=== PATIENT | male | born 1965 | race Two or more races ===

== ENCOUNTER 2020-09-08 09:03 | Emergency (ER) | payer OTHER, SELFPAY ==
[2020-09-08 09:51] VITALS: BP 113/72; PULSE 81; RESP 16; TEMP 36.7; O2SAT 98; BMI 30.9
--- NOTE | 2020-09-08 10:11 | ED_ITS ---
HPI - General Adult General Chief complaint: Neck Pain/Injury Stated complaint: MUSCLE PAIN Time Seen by Provider: 09/08/20 10:11 History of Present Illness HPI narrative: Patient complains of pain on the left side of the neck from under the left ear to the trapezius muscle that is worse with movement, no known injury, no fever no chills no sore throat no ear pain no toothache Related Data Previous Rx's Medication Instructions Recorded amoxicillin 500 mg PO TID 7 Days #21 cap 09/08/20 cyclobenzaprine 5 mg PO TID PRN #10 tab 09/08/20 ibuprofen 600 mg PO Q6H PRN #20 tab 09/08/20 Allergies Allergy/AdvReac Type Severity Reaction Status Date / Time No Known Allergies Allergy Unverified 07/05/20 16:11 [No Known Allergies*] Review of Systems Review of Systems: There is no fever no chills no numbness no weakness no paresthesias no shortness of breath no chest pain no sore throat no ear pain no toothache no runny nose, no skin rash PMFSH Past Medical History Source: nursing notes reviewed Medical History (Updated 09/08/20 @ 10:15 by SHEILA Solo) Diabetes High cholesterol Social History Social History Advance Directives: No Advance Directives Information Provided: Yes Physical Exam Vital Signs: Vital Signs: Last Vital Signs Temp 98.1 F 09/08/20 09:51 Pulse 81 09/08/20 09:51 Resp 16 09/08/20 09:51 BP 113/72 09/08/20 09:51 Pulse Ox 98 09/08/20 09:51 Body Mass Index 30.9 Patient is A&O x3 comfortable relaxed and cooperative The left ear are clear with normal tympanic membranes, no redness to tympanic membrane, no mastoid tenderness, no redness behind the ear, ear canal is normal The pharynx is clear no redness no tonsillar exudate no drooling no trismus no dental tenderness no dental abscess, voice is normal The neck has tenderness to the left lateral neck as well as some tenderness to the left submandibular area no obvious swelling no redness no warmth no fluctuance The chest is clear to auscultation bilaterally there is no respiratory distress, breath sounds are full symmetrical and equal The heart rate and rhythm regular, no murmur Extremities full range of motion x4 skin no rash neuro no focal deficit Course Course Course Narrative: Patient was concerned as and a prior episode of strep throat he had had some submandibular swelling associated with pharyngitis, today there is no pharyngitis but there was some tenderness in the left submandibular area but no swelling, there is also tenderness along the left lateral neck muscle th at was reproduced with movement so patient possibly has some swelling of left submandibular gland and has muscle tenderness in the left side of the neck consistent with muscle inflammation He is treated with amoxicillin antibiotic as well as treatment for musculoskeletal pain in the left side of the neck Discharge Plan Discharge Clinical Impression: Lymphadenopathy Patient Disposition: Home, Self-Care Additional Instructions: You have a swollen gland on the left side of your neck There was also some tenderness in the muscle but no sign of any skin infection We are starting amoxicillin antibiotic as well as Motrin and a muscle relaxer Return any time for swelling, spreading redness, any difficulty breathing or swallowing, any worse condition or any concerns We will call you in 2-3 days with COVID test results Prescriptions: New amoxicillin 500 mg capsule 500 mg PO TID 7 Days Qty: 21 RF: 0 ibuprofen 600 mg tablet 600 mg PO Q6H PRN (Reason: pain) Qty: 20 RF: 0 cyclobenzaprine 5 mg tablet 5 mg PO TID PRN (Reason: muscle spasm) Qty: 10 RF: 0 Stand Alone Forms: Work/School Release Interventions: ED Discharge Assessment Last Done: 09/08/20 11:02 Discharge Date/Time: 09/08/20 10:45
== END 2020-09-08 10:45 | disposition home or self-care (01) ==
PROVIDERS: Physician Assistant Medical; Emergency Provider Emergency Medicine; PCP Internal Medicine
DX: M79.10 Myalgia, unspecified site (principal); M54.2 Cervicalgia; R59.1 Generalized enlarged lymph nodes; Z20.828 Contact with and (suspected) exposure to other viral communicable diseases; Z79.899 Other long term (current) drug therapy
CPT/HCPCS: 99283; U0003

== ENCOUNTER 2020-10-22 11:09 | Outpatient (REF) | payer OTHER, SELFPAY | END 2020-10-22 11:10 | disposition home or self-care (01) | LOC: HO.LAB 11:09 | PROVIDERS: Visit Provider Internal Medicine | DX: Z20.828 Contact with and (suspected) exposure to other viral communicable diseases (principal) | CPT/HCPCS: 36415; C9803; U0003 ==

== ENCOUNTER 2021-03-31 10:55 | Emergency (ER) | payer OTHER, SELFPAY ==
[2021-03-31 11:23] VITALS: BP 142/87; PULSE 82; RESP 16; TEMP 36.6; O2SAT 97; BMI 29.2
--- NOTE | 2021-03-31 12:26 | ED.MALEGU ---
HPI - Male Genitourinary General Chief complaint: Urogenital-Male Stated complaint: rash on private area Time Seen by Provider: 03/31/21 12:26 History of Present Illness HPI Narrative: Patient complains of itching rash on tip of penis for several days no fever no chills no burning with urination no discharge no testicular swelling Related Data Previous Rx's Medication Instructions Recorded amoxicillin 500 mg PO TID 7 Days #21 cap 09/08/20 cyclobenzaprine 5 mg PO TID PRN #10 tab 09/08/20 ibuprofen 600 mg PO Q6H PRN #20 tab 09/08/20 clotrimazole 1 appl TOPICAL BID #15 g 03/31/21 Allergies Allergy/AdvReac Type Severity Reaction Status Date / Time No Known Allergies Allergy Unverified 07/05/20 16:11 [No Known Allergies*] Review of Systems Review of Systems: Positive for penile rash Negatives are no fever no chills no headache no sore throat no abdominal pain no dysuria no blood in the urine no discharge no testicular pain or swelling no dysuria no frequency no burning with urination Yes all other systems are reviewed and are negative [facility] Past Medical History Source: nursing notes reviewed Medical History (Updated 04/01/21 @ 00:01 by Saba Gary) Diabetes High cholesterol Social History Social History Advance Directives: Yes Advance Directives Information Provided: Yes Advance Directives on File: No Physical Exam Vital Signs: Vital Signs: Last Vital Signs Temp 98 F 03/31/21 11:23 Pulse 82 03/31/21 11:23 Resp 16 03/31/21 11:23 BP 142/87 H 03/31/21 11:23 Pulse Ox 97 03/31/21 11:23 Body Mass Index 29.2 General appearanc no distress The head is normocephalic atraumatic Neck is supple Abdomen is soft nontender Respiratory no distress Genital exam under the foreskin there is some redness and a raised reddish rash on the tip of the penis, no ulcerations no discharge no testicular swelling Skin no other rash Course Course Course Narrative: Patient is diabetic who says his sugars are well controlled He denies any unprotected sexual intercourse The small papules could be from balanitis but also from herpes so herpes was swabbed, I did not initiate treatment as he is 5 days out from when the rash appeared, and is insistent he did not have unprotected intercourse MDM - Male Genitourinary Lab Data Labs: Lab Results 03/31/21 03/31/21 03/31/21 Range/Units 13:16 13:16 13:16 Urine Color YELLOW Urine Appearance CLEAR Urine pH 5.5 (5.0-8.0) Ur Specific [place] 1.020 (1.005-1.025) Urine Protein NEG (NEG-TRACE) MG/DL Urine Glucose (UA) >=1000 H (NEG) MG/DL Urine Ketones NEG (NEG) MG/DL Urine Blood NEG (NEG) Urine Nitrite NEG (NEG) Ur Leukocyte Esterase NEG (NEG) Urine RBC 0-2 (0) /HPF Urine WBC 0 (0-4) /HPF Ur Squamous Epith Cells NONE /LPF Urine Bacteria NONE /LPF Chlam trachomat DNA PCR NOT DETECTED (Not Detect.) Herpes Simplex Culture SEE NOTE N.gonorrhoeae DNA (PCR) NOT DETECTED (Not Detect.) Discharge Plan Discharge Clinical Impression: Balanitis Patient Disposition: Home, Self-Care Additional Instructions: The rash may be balanitis which some diabetics can get, but I am not sure so we tested for herpes as well We will call you if there is any positive results Follow with primary doctor you may need referral to urologist Prescriptions: New clotrimazole 1 % cream 1 appl topical BID Qty: 15 RF: 0 No Action amoxicillin 500 mg capsule 500 mg PO TID 7 Days Qty: 21 RF: 0 ibuprofen 600 mg tablet 600 mg PO Q6H PRN (Reason: pain) Qty: 20 RF: 0 cyclobenzaprine 5 mg tablet 5 mg PO TID PRN (Reason: muscle spasm) Qty: 10 RF: 0 Stand Alone Forms: Work/School Release Interventions: ED Discharge Assessment Last Done: 03/31/21 14:33 Discharge Date/Time: 03/31/21 14:35
[2021-03-31 13:31] LABS: Glucose Urine UA >=1000 MG/DL (NEG); Leukocyte Esterase Urine NEG (NEG); Nitrite Urine NEG (NEG); PH 5.5 (5.0-8.0); Urine Blood NEG (NEG); Urine Ketones NEG (NEG); Urine Protein NEG (NEG-TRACE)
[2021-03-31 13:32] LABS: Appearance Urine CLEAR; Color Urine YELLOW
[2021-03-31 13:47] LABS: RBC Urine 0-2 /HPF (0); WBC Urine 0 /HPF (0-4)
[2021-03-31 15:20] LABS: CT PCR NOT DETECTED (Not Detect.); NG PCR NOT DETECTED (Not Detect.)
== END 2021-03-31 14:35 | disposition home or self-care (01) ==
PROVIDERS: Physician Assistant Medical; Emergency Provider Emergency Medicine Emergency Medical Services; PCP Family Medicine Geriatric Medicine
DX: N48.1 Balanitis (principal); E11.9 Type 2 diabetes mellitus without complications
CPT/HCPCS: 81001; 87255; 87491; 87591; 99283; 99284

== ENCOUNTER → 2022-10-17 09:42 | Outpatient (BNVA) | payer OTHER, SELFPAY | PROVIDERS: PCP Family Medicine Geriatric Medicine; Visit Provider Urology | DX: N48.1 Balanitis (principal) ==

== ENCOUNTER → 2022-12-23 11:28 | Outpatient (BNVA) | payer OTHER, SELFPAY | PROVIDERS: PCP Family Medicine Geriatric Medicine; Visit Provider Nurse Practitioner Family | DX: Z13.89 Encounter for screening for other disorder (principal) ==

== ENCOUNTER 2023-10-22 15:01 | Emergency (ER) | payer OTHER, SELFPAY ==
[2023-10-22 15:08] VITALS: BP 158/100; PULSE 88; O2SAT 96
[2023-10-22 15:39] VITALS: BP 177/94; PULSE 89; RESP 20; TEMP 36.8; O2SAT 98; BMI 28.3
--- NOTE | 2023-10-22 15:49 | ED.GENADULT ---
HPI - General Adult General Chief complaint: Abdominal Pain Stated complaint: ABD PAIN PER EMS Time Seen by Provider: 10/22/23 23:13 Source: patient Mode of arrival: ambulatory Limitations: no limitations History of Present Illness HPI narrative: Patient comes to the emergency room complaining of epigastric and right upper quadrant pain for most 24 hours. Patient states that he has had history of pancreatitis in the past, and the pain is very similar. Patient admits that he drinks 1 pt of alcohol daily. Patient complaining of nausea and vomiting, no diarrhea. Patient denies UTI symptoms or flank pain. Related Data Home Medications Medication Instructions Recorded Confirmed acamprosate 333 mg tablet,delayed 666 mg PO TID 10/17/22 12/23/22 release atorvastatin 40 mg tablet 40 mg PO DAILY 10/17/22 12/23/22 cholecalciferol (vitamin D3) 25 25 mcg PO QAM 10/17/22 12/23/22 mcg (1,000 unit) tablet cyanocobalamin (vitamin B-12) 1,000 mcg PO QAM 10/17/22 12/23/22 1,000 mcg tablet dorzolamide 22.3 mg-timolol 6.8 ml ophthalmic (eye) 10/17/22 12/23/22 mg/mL eye drops metformin 1,000 mg tablet 1,000 mg PO BID 10/17/22 12/23/22 omeprazole 20 mg capsule,delayed 20 mg PO BID 10/17/22 12/23/22 release sildenafil 100 mg tablet (Viagra) 100 mg PO DAILY PRN 10/17/22 12/23/22 dapagliflozin propanediol 5 mg 5 mg PO QAM 12/23/22 12/23/22 tablet (Farxiga) multivitamin 1 tab PO QAM 12/23/22 12/23/22 Previous Rx's Medication Instructions Recorded cyclobenzaprine 5 mg tablet 5 mg PO TID PRN muscle spasm #10 09/08/20 tabs ibuprofen 600 mg tablet 600 mg PO Q6H PRN pain #20 tabs 09/08/20 clotrimazole 1 % topical cream 1 appl topical BID Rash #15 grams 03/31/21 clotrimazole-betamethasone 1 1 appl topical BID 4 weeks #45 12/23/22 %-0.05 % topical cream grams oxycodone 5 mg tablet 5 mg PO BID PRN pain #6 tabs 10/23/23 Allergies Allergy/AdvReac Type Severity Reaction Status Date / Time No Known Allergies Allergy Verified 10/22/23 15:42 [No Known Allergies*] Review of Systems Review of Systems: Constitutional : No Weight loss, No Fever, No Chills, No Night Sweats, No Fatigue, No Malaise ENT/Mouth : No Hearing loss, No Ear Pain, No Nasal Congestion, No Sinus Pain, No Hoarseness, No sore throat, No Rhinorrhea, No Swallowing Difficulty Eyes: No Eye Pain, No Swelling, No Redness, No Foreign Body, No Discharge, No Vision Changes Cardiovascular : No Chest Pain, No SOB, No Dyspnea on Exertion, No Orthopnea, No Edema, No Palpitations Respiratory : No Cough, No Sputum, No Wheezing, No Smoke Exposure, No Dyspnea Gastrointestinal : Complaining of nausea vomiting, No Diarrhea, No Constipation, complaining of abdominal pain in epigastric and right upper quadrant area No Hematochezia, No Melena Genitourinary : no irregular bleeding, No Dysuria, No Urinary Frequency, No Hematuria, No Urinary Incontinence, No Urgency, No Flank Pain, No Urinary Flow Changes, No Hesitancy Musculoskeletal : No joint pain, No Myalgias, No Joint Swelling Skin : No Skin Lesions, No rash Neuro : No Weakness, No Numbness, No Paresthesias, No Loss of Consciousness, No Dizziness, No Headache Psych : No Anxiety/Panic, No Depression, No SI/HI/AH/VH, No Social Issues, Heme/Lymph: No Bruising, No Bleeding,No Lymphadenopathy Endocrine : No Polyuria, No Polydipsia, No Temperature Intolerance PMFSH Past Medical History Onset Date is defined in the Problem List Problems that require an onset date and time if occurred within 24 hrs of arrival to the ED Aortic Dissection and Rupture; Neurologic impairment; Cardiopulmonary Arrest; Endotracheal Intubation; Insertion or Replacement of Mechanical Circulatory Assist Device Medical History (Updated 10/23/23 @ 02:17 by Maritza Oconnor MD) Type 2 diabetes mellitus Hypertension Pancreatitis High cholesterol Diabetes Social History Social History Smoked in Last 30 Days: Yes Advance Directives: No Advance Directives Information Provided: No Physical Exam ED Vital Signs: Vital Signs - 24 hr 10/22/23 15:39 10/22/23 21:59 10/22/23 23:29 Temperature 98.2 F 97.8 F 98.0 F Pulse Rate 89 83 83 Respiratory Rate 20 18 Blood Pressure 177/94 H 189/95 H 174/85 H Pulse Oximetry 98 96 98 Oxygen Delivery Method Room Air Room Air Room Air 10/23/23 02:16 Temperature 98.2 F Pulse Rate 80 Respiratory Rate 17 Blood Pressure 157/70 H Pulse Oximetry 96 Oxygen Delivery Method Room Air BMI result Body Mass Index 28.3 Const Other: Appearance: Alert. Oriented X3. Seems uncomfortable Eyes: Pupils equal, round and reactive to light. ENT: Pharynx normal. Neck: Normal inspection. Neck supple. No lymph nodes noted. No crepitus CVS: Normal heart rate and rhythm. Pulses normal. Normal S1 and S2 Respiratory: No respiratory distress. Breath sounds normal. No Wheezing. No rales Abdomen: Soft and nontender. Mild tenderness to palpation in epigastric and right upper quadrant area, negative Easton sign, no rebound or guarding, small reducible periumbilical hernia Skin: Skin warm and dry. Normal skin color. Normal skin turgor. Extremities: No lower extremity edema. No Lacerations. No Rash Neuro: Oriented X 3. No motor deficit. No sensory deficit. Moving all extremities. No slurred speech. CN 2 through 12 grossly intact Psych: calm, cooperative, normal affect Course Course Course Narrative: RME: 57-year-old male presents ED for epigastric upper abdominal pain with history of pancreatitis and alcoholism. Patient states having similar presentation of pancreatitis. Patient states no lower abdominal pain fever chills or flank pain. Patient states no symptoms. Labs ultrasound CT scan ordered. Medications Administered Discontinued Medications Generic Name Dose Route Start Last Admin Trade Name Freq PRN Reason Stop Dose Admin Sodium Chloride 1,000 mls @ 999 mls/hr 10/22/23 23:22 10/23/23 00:30 Ns IVCONT 10/23/23 00:22 Infused .Q1H1M ONE Infusion Morphine Sulfate 4 mg 10/22/23 23:22 10/22/23 23:32 Morphine Sulfate 4 Mg/Ml Cartridge IVPUSH 10/22/23 23:23 4 mg ONCE ONE Administration Protocol Morphine Sulfate 4 mg 10/23/23 02:14 10/23/23 02:19 Morphine Sulfate 4 Mg/Ml Cartridge IVPUSH 10/23/23 02:15 4 mg ONCE ONE Administration Protocol Ondansetron HCl 4 mg 10/22/23 23:22 10/22/23 23:32 Ondansetron Hcl 4 Mg/2 Ml Vial IVPUSH 10/22/23 23:23 4 mg ONCE ONE Administration Medical Decision Making Medical Decision Making [facility] Narrative: -my interpretation of labs: Hematology and chemistry unremarkable, troponin negative, lipase normal. -ultrasound shows dilated gallbladder and positive Easton sign -on physical exam, the patient did not have Easton sign. -CT scan of the abdomen my interpretation: Normal gallbladder, no SBO, no obvious abnormalities -I discussed the imaging labs and patient with Dr. Purcell from surgery, patient unlikely to have acute cholecystitis. -patient does have pain likely musculoskeletal. Patient states that he fell and landed on the right side of his body less than a week ago. -patient has had multiple times pancreatitis, lipase negative Differential Diagnosis Differential Diagnoses: The differential diagnosis associated with the presentation includes (Cholecystitis, pancreatitis, musculoskeletal pain) Admission/Observation Consideration of admission/observation: Escalation of care including admission/observation considered (Given patient's presentation, admission was considered on arrival) Lab Data MDM Lab Attestation statement: I reviewed the patient's lab results. 10/22/23 17:35 10/22/23 17:35 Labs: Lab Results 10/22/23 10/22/23 Range/Units 17:35 23:36 WBC 9.6 (4.8-10.8) X10*3/uL RBC 4.57 L (4.60-5.80) X10*6/uL Hgb 14.8 (14.0-18.0) g/dl Hct 43.0 (42.0-52.0) % MCV 94.1 (80.0-98.0) fL MCH 32.4 (27.0-33.0) pg MCHC 34.4 (31.0-36.0) g/dl RDW 12.8 (11.0-16.0) % Plt Count 204 (160-400) X10*3/uL MPV 9.6 (9.4-12.4) fL Immature Gran % (Auto) 0.5 H (0.0-0.4) % Neut % (Auto) 69.4 (45-73) % Lymph % (Auto) 20.9 (20-40) % [place] % (Auto) 8.1 (2-11) % Eos % (Auto) 0.9 (0-4) % Baso % (Auto) 0.2 (0-2) % Lymph # (Auto) 2.0 (1.2-4.9) X10*3/uL [place] # (Auto) 0.8 (0.1-1.2) X10*3/uL Eos # (Auto) 0.1 (0.0-0.4) X10*3/uL Baso # (Auto) 0.0 (0.0-0.2) X10*3/uL Abs Immat Gran (auto) 0.05 H (0.00-0.03) X10*3/uL Absolute Neuts (auto) 6.6 (2.0-8.3) x10*3/uL Absolute Nucleated RBC 0.000 (0.0-0.012) X10*3/uL Nucleated RBC % (auto) 0.0 (0.0-0.2) /100WBC PT 11.0 L (11.1-13.3) SEC INR 0.9 (0.9-1.1) APTT 30.6 (26.0-36.4) SEC Sodium 140 (135-145) mmol/L Potassium 3.2 L (3.3-5.1) mmol/L Chloride 100 (96-108) mmol/L Carbon Dioxide 23 (22-29) mmol/L Anion Gap 20 (12-20) BUN 8 L (9-16) mg/dL Creatinine 0.68 (0.5-1.4) mg/dL Estim Creat Clear Calc 113.6 Estimated GFR > 60 Random Glucose 147 H (60-115) mg/dL Calcium 9.7 (8.4-10.2) mg/dL Total Bilirubin 0.6 (0.0-1.0) mg/dL AST 16 (5-37) U/L ALT 12 (0-40) U/L Alkaline Phosphatase 68 (39-117) U/L Troponin I High Sens 6.7 (<3.5-35.0) ng/L Total Protein 8.0 (6.5-8.0) g/dL Albumin 4.5 (3.5-5.0) g/dL Lipase 27 (8-78) U/L Urine Color Yellow Urine Appearance Clear Urine pH 6.0 (5.0-9.0) Ur Specific [place] 1.020 (1.005-1.025) Urine Protein 100 (2+) H (Neg-Trace) mg/dL Urine Glucose (UA) 100 H (Negative) mg/dL Urine Ketones 80 (Negative) mg/dL Urine Blood Small (1+) H (Negative) Urine Nitrite Negative (Negative) Ur Leukocyte Esterase Negative (Negative) Urine RBC 6-10 H (0-2) /HPF Urine WBC 0-5 (0-5) /HPF Ur Squamous Epith Cells 0-2 (0-2) /HPF Urine Bacteria None Seen (None Seen) Hyaline Casts 0-2 (0-2) /LPF Ethyl Alcohol 61 mg/dL Independent Interpretation I performed an independent interpretation of an: Ultrasound and CT Scan Radiology Impression Discussion of test interpretation with radiology: I have reviewed the radiologist's reading. Radiologist Impression: FINDINGS: LUNG BASES: The visualized lung bases are unremarkable. LIVER, GALLBLADDER, AND BILIARY TREE: The liver is normal in size, shape, and attenuation. No focal hepatic lesion or biliary ductal dilatation is present. The gallbladder is unremarkable with no evidence of radiopaque gallstones, gallbladder wall thickening, or obvious pericholecystic inflammatory changes. PANCREAS: There is mild infiltrative change along the head of the pancreas. SPLEEN: Unremarkable. ADRENAL GLANDS: Unremarkable. KIDNEYS AND URETERS: The kidneys are normal in size, shape, and attenuation. No hydronephrosis, hydroureter, or calculi seen. Mild nonspecific perinephric stranding. BLADDER: Unremarkable. GASTROINTESTINAL TRACT: The small and large bowel are unremarkable. The appendix is unremarkable. ABDOMINAL WALL: No significant hernia is appreciated. LYMPH NODES: Normal. VASCULAR: Unremarkable. PELVIC VISCERA: Unremarkable. OSSEOUS STRUCTURES: There is mild diffuse thoracolumbar disc degenerative change. CT/CT abdomen pelvis wo IV con IMPRESSION: 1. There is mild infiltrative change along the head of the pancreas. Correlate with laboratory values for possible pancreatitis. 2. Otherwise, no acute abnormality within the abdomen or pelvis. IMPRESSION: Distended gallbladder. Positive sonographic Easton's sign. Findings are equivocal for acute cholecystitis. Advise clinical correlation. Hepatic steatosis. Tubular structure in the right mid to lower abdomen of uncertain significance. Correlation with further cross-sectional imaging is recommended. Critical Care Time Critical Care Time Total Critical Care Time: 60 Attestation: I have personally provided critical care time. Time includes review of lab data, radiology results, discussion with consultants, and monitoring for potential decompensation. Intervention performed as documented. Discharge Plan Discharge Clinical Impression: Abdominal pain Patient Disposition: Home, Self-Care Instructions: Abdominal Pain (ED) Additional Instructions: Please follow-up with your primary care physician tomorrow. If you have any worsening or new symptoms, please return to the emergency room or call 911 Prescriptions: New oxycodone 5 mg tablet 5 mg PO BID PRN (Reason: pain) Qty: 6 0RF Rx Instructions: Partial Fill upon patient request. No Action ibuprofen 600 mg tablet 600 mg PO Q6H PRN (Reason: pain) Qty: 20 0RF cyclobenzaprine 5 mg tablet 5 mg PO TID PRN (Reason: muscle spasm) Qty: 10 0RF clotrimazole 1 % cream 1 appl topical BID Qty: 15 0RF multivitamin Tablet 1 tab PO QAM Farxiga 5 mg tablet 5 mg PO QAM clotrimazole-betamethasone 1-0.05 % cream 1 appl topical BID 28 Days Qty: 45 0RF Rx Instructions: Apply thin coat 2 times per day acamprosate 333 mg tablet,delayed release (DR/EC) 666 mg PO TID dorzolamide-timolol 22.3-6.8 mg/mL drops ophthalmic (eye) metformin 1,000 mg tablet 1,000 mg PO BID sildenafil [Viagra] 100 mg tablet 100 mg PO DAILY PRN cholecalciferol (vitamin D3) 25 mcg (1,000 unit) tablet 25 mcg PO QAM cyanocobalamin (vitamin B-12) 1,000 mcg tablet 1,000 mcg PO QAM atorvastatin 40 mg tablet 40 mg PO DAILY omeprazole 20 mg capsule,delayed release(DR/EC) 20 mg PO BID Stand Alone Forms: Work/School Release Interventions: ED Discharge Assessment Last Done: 10/23/23 02:24 Discharge Date/Time: 10/23/23 02:59
--- NOTE | 2023-10-22 21:54 | PC.NURSE ---
This RN reviewing patient chart prior to reasssment. Results of ultrasound reviewed and transmitter engineer in charge made aware
[2023-10-22 21:59] VITALS: BP 189/95; PULSE 83; RESP 18; TEMP 36.6; O2SAT 96
[2023-10-22 23:29] VITALS: BP 174/85; PULSE 83; TEMP 36.7; O2SAT 98
--- NOTE | 2023-10-22 23:30 | MHC.EDTECH ---
This tech took over care of patient at 2300,hourly rounds and vitals completed, patient will attempt to get a urine sample at this time. Family at bedside and call jaquez within reach.
--- NOTE | 2023-10-22 23:33 | MHC.EDTECH ---
Patient ambulated to bathroom with a steady gait.urine sample collected and sent to lab.
[2023-10-23 02:16] VITALS: BP 157/70; PULSE 80; RESP 17; TEMP 36.8; O2SAT 96
== END 2023-10-23 02:59 | disposition home or self-care (01) ==
PROVIDERS: Emergency Provider Emergency Medicine
DX: R10.13 Epigastric pain (principal); R10.11 Right upper quadrant pain; E78.00 Pure hypercholesterolemia, unspecified; E11.9 Type 2 diabetes mellitus without complications; I10 Essential (primary) hypertension; F10.20 Alcohol dependence, uncomplicated; Y90.3 Blood alcohol level of 60-79 mg/100 ml; Z79.84 Long term (current) use of oral hypoglycemic drugs; Z79.899 Other long term (current) drug therapy; Z79.02 Long term (current) use of antithrombotics/antiplatelets
CPT/HCPCS: 36415; 74176; 76705; 80053; 80307; 81001; 83690; 84484; 85025; 85610; 85730; 93005; 96361; 96374; 96375; 96376; 99285; J2270; J2405

== ENCOUNTER → 2023-10-22 15:43 | Outpatient (BNV) | payer OTHER, SELFPAY | PROVIDERS: Emergency Provider Emergency Medicine; Visit Provider Internal Medicine Cardiovascular Disease | DX: R94.31 Abnormal electrocardiogram [ECG] [EKG] (principal) | CPT/HCPCS: 93010 ==

== ENCOUNTER 2023-10-24 17:40 | Emergency (ER) | payer OTHER, SELFPAY ==
[2023-10-24 18:49] VITALS: BP 179/88; PULSE 77; RESP 18; TEMP 36.6; O2SAT 98; BMI 28.6
[2023-10-24 19:34] LABS: Alanine Aminotransferase 8 U/L (0-40); Albumin Level 4.2 g/dL (3.5-5.0); Alkaline Phosphatase 70 U/L (39-117); Anion Gap 14 (12-20); Aspartate Amino Transferase 12 U/L (5-37); Bilirubin Total 0.6 mg/dL (0.0-1.0); Blood Urea Nitrogen 18 mg/dL (9-16); Calcium 9.6 mg/dL (8.4-10.2); Carbon Dioxide 30 mmol/L (22-29); Chloride 102 mmol/L (96-108); Creatinine Clr Calc Pharmacy 87.2; Estimated Glomerular Filt Rate > 60; Glucose Random 175 mg/dL (60-115); Lipase 42 U/L (8-78); Potassium 3.7 mmol/L (3.3-5.1); Sodium 142 mmol/L (135-145); Total Protein 7.4 g/dL (6.5-8.0)
--- NOTE | 2023-10-24 22:21 | ED.ABDPAIN ---
HPI - Abdominal Pain General Chief Complaint: Abdominal Pain Stated Complaint: abd pain, was here Time Seen by Provider: 10/24/23 22:11 Source: patient and family Mode of arrival: ambulatory Limitations: no limitations History of Present Illness HPI narrative: A 57-year-old male return to the emergency department for evaluation of abdominal pain. Epigastric/ mid abdominal pain after drinking alcohol for 5 days now patient was evaluated in the emergency department on 10/22/[address] of the abdomen and pelvis without IV contrast showed infiltrate around the head of pancreas however patient had a normal lipase and otherwise normal electrolyte patient returned again for for persistence of the pain despite taking oxycodone. No nausea, no vomiting. Patient only drink occasionally last drink was 5 days ago and he is prone to pancreatitis with alcohol. however patient drinks occasionally. Related Data Home Medications Medication Instructions Recorded Confirmed acamprosate 333 mg tablet,delayed 666 mg PO TID 10/17/22 12/23/22 release atorvastatin 40 mg tablet 40 mg PO DAILY 10/17/22 12/23/22 cholecalciferol (vitamin D3) 25 25 mcg PO QAM 10/17/22 12/23/22 mcg (1,000 unit) tablet cyanocobalamin (vitamin B-12) 1,000 mcg PO QAM 10/17/22 12/23/22 1,000 mcg tablet dorzolamide 22.3 mg-timolol 6.8 ml ophthalmic (eye) 10/17/22 12/23/22 mg/mL eye drops metformin 1,000 mg tablet 1,000 mg PO BID 10/17/22 12/23/22 omeprazole 20 mg capsule,delayed 20 mg PO BID 10/17/22 12/23/22 release sildenafil 100 mg tablet (Viagra) 100 mg PO DAILY PRN 10/17/22 12/23/22 dapagliflozin propanediol 5 mg 5 mg PO QAM 12/23/22 12/23/22 tablet (Farxiga) multivitamin 1 tab PO QAM 12/23/22 12/23/22 Previous Rx's Medication Instructions Recorded cyclobenzaprine 5 mg tablet 5 mg PO TID PRN muscle spasm #10 09/08/20 tabs ibuprofen 600 mg tablet 600 mg PO Q6H PRN pain #20 tabs 09/08/20 clotrimazole 1 % topical cream 1 appl topical BID Rash #15 grams 03/31/21 clotrimazole-betamethasone 1 1 appl topical BID 4 weeks #45 12/23/22 %-0.05 % topical cream grams oxycodone 5 mg tablet 5 mg PO BID PRN pain #6 tabs 10/23/23 omeprazole 40 mg capsule,delayed 40 mg PO DAILY #14 caps 10/25/23 release Allergies Allergy/AdvReac Type Severity Reaction Status Date / Time No Known Allergies Allergy Verified 10/24/23 18:49 [No Known Allergies*] Review of Systems Review of Systems All other systems are reviewed and are negative Constitutional: Reports as per HPI and Reports no additional constitutional complaints Eyes: Reports as per HPI and Reports no additional eye complaints Reports system reviewed and no additional complaints, except as documented Cardiovascular: Reports as per HPI and Reports no additional cardiovascular complaints Respiratory: Reports as per HPI and Reports no additional respiratory complaints Gastrointestinal: Reports as per HPI and Reports no additional gastrointestinal complaints Genitourinary: Reports no additional female genitourinary complaints Musculoskeletal: Reports no additional musculoskeletal complaints Skin/Breast: Reports system reviewed and no additional complaints, except as docu Psychiatric: Reports no additional psychiatric complaints Endocrine: Reports no additional endocrine complaints Hematologic/Lymphatic: Reports no additional hematologic/lymphatic complaints Allergic/Immunologic: Reports no additional allergic/immunologic complaints Reports system reviewed and no additional complaints, except as documented and Reports Abnormal speech present PMFSH Past Medical History Onset Date is defined in the Problem List Problems that require an onset date and time if occurred within 24 hrs of arrival to the ED Aortic Dissection and Rupture; Neurologic impairment; Cardiopulmonary Arrest; Endotracheal Intubation; Insertion or Replacement of Mechanical Circulatory Assist Device Medical History Type 2 diabetes mellitus Hypertension Pancreatitis High cholesterol Diabetes Social History Social History Smoked in Last 30 Days: Yes Use of substances other than those prescribed or required for medical reasons: No Advance Directives: No Advance Directives Information Provided: No Physical Exam ED Vital Signs: Vital Signs - 24 hr 10/24/23 18:49 10/24/23 22:52 Temperature 97.9 F 98.5 F Pulse Rate 77 76 Respiratory Rate 18 16 Blood Pressure 179/88 H 172/91 H Pulse Oximetry 98 98 Oxygen Delivery Method Room Air Room Air BMI result Body Mass Index 28.6 Vital signs have been reviewed and appear to be correct. Blood pressure elevated. Heart rate normal. Respiratory rate normal. Temperature normal. Oxygen saturation normal. Appearance: Alert. Oriented X3. No acute distress. Head: Normal external exam. Normocephalic. Atraumatic. No Chowdhury signs noted. No raccoon eyes noted Eyes: PERRLA. EOMI. Conjunctiva and sclera normal. Eyelids normal. ENT: TM's Normal. Pharynx normal. Uvula midline. Moist mucous membranes. No trismus noted. No drooling noted. No muffled voice noted. Neck: Normal inspection. Neck supple. FROM. No adenopathy. Thyroid Normal. No meningeal signs. No neck mass noted. CVS: Normal heart rate and rhythm. Heart sound normal. No murmurs noted. Pulses normal throughout. Respiratory: No respiratory distress. Painless inspiration. Breath sounds normal. No wheezes/rales/rhonchi noted. Chest nontender. No accessory muscle usage noted or decreased air movement noted. Abdomen: Soft and nontender. Bowel sounds normal in all 4 quadrants. No distention noted. No organomegaly noted. No visible injury noted. Back: No CVA tenderness. Full range of motion noted. Skin: Skin warm and dry. Normal skin color. Normal skin turgor. No rashes/lesions/lacerations noted. Extremities: No lower extremity edema. Extremities exhibit normal range of motion. Extremities nontender. Neuro: Oriented X 3. Cranial nerve exam: II-XII are grossly intact No motor deficit. No sensory deficit. Reflexes normal. Course Reevaluation(s) Reevaluation #1: Labs/CT abdomen and pelvis with IV contrast showed improvement of the pancreatic infiltrate with normal lipase, making gastritis is more favorable diagnosis then pancreatitis. Patient was instructed to refrain from drinking alcohol, take Tylenol for pain and will prescribe Prilosec with follow-up with GI. Time: 01:52 Medical Decision Making Differential Diagnosis Differential Diagnoses: The differential diagnosis associated with the presentation includes ( Acute appendicitis, acute colitis, acute diverticulitis, acute pancreatitis, acute gastritis, UTI, electrolyte abnormality, dehydration, severe anemia.) Admission/Observation Consideration of admission/observation: Escalation of care including admission/observation considered Lab Data MDM Lab Attestation statement: I reviewed the patient's lab results. 10/24/23 19:13 10/24/23 19:13 Labs: Lab Results 10/24/23 10/24/23 Range/Units 19:13 22:59 WBC 8.4 (4.8-10.8) X10*3/uL RBC 4.28 L (4.60-5.80) X10*6/uL Hgb 13.9 L (14.0-18.0) g/dl Hct 41.8 L (42.0-52.0) % MCV 97.7 (80.0-98.0) fL MCH 32.5 (27.0-33.0) pg MCHC 33.3 (31.0-36.0) g/dl RDW 13.0 (11.0-16.0) % Plt Count 174 (160-400) X10*3/uL MPV 9.8 (9.4-12.4) fL Immature Gran % (Auto) 0.4 (0.0-0.4) % Neut % (Auto) 59.2 (45-73) % Lymph % (Auto) 28.1 (20-40) % [place] % (Auto) 10.1 (2-11) % Eos % (Auto) 2.0 (0-4) % Baso % (Auto) 0.2 (0-2) % Lymph # (Auto) 2.4 (1.2-4.9) X10*3/uL [place] # (Auto) 0.9 (0.1-1.2) X10*3/uL Eos # (Auto) 0.2 (0.0-0.4) X10*3/uL Baso # (Auto) 0.0 (0.0-0.2) X10*3/uL Abs Immat Gran (auto) 0.03 (0.00-0.03) X10*3/uL Absolute Neuts (auto) 5.0 (2.0-8.3) x10*3/uL Absolute Nucleated RBC 0.000 (0.0-0.012) X10*3/uL Nucleated RBC % (auto) 0.0 (0.0-0.2) /100WBC Sodium 142 (135-145) mmol/L Potassium 3.7 (3.3-5.1) mmol/L Chloride 102 (96-108) mmol/L Carbon Dioxide 30 H (22-29) mmol/L Anion Gap 14 (12-20) BUN 18 H (9-16) mg/dL Creatinine 0.89 (0.5-1.4) mg/dL Estim Creat Clear Calc 87.2 Estimated GFR > 60 Random Glucose 175 H (60-115) mg/dL Calcium 9.6 (8.4-10.2) mg/dL Total Bilirubin 0.6 (0.0-1.0) mg/dL AST 12 (5-37) U/L ALT 8 (0-40) U/L Alkaline Phosphatase 70 (39-117) U/L Total Protein 7.4 (6.5-8.0) g/dL Albumin 4.2 (3.5-5.0) g/dL Lipase 42 (8-78) U/L Urine Color Yellow Urine Appearance Clear Urine pH 7.5 (5.0-9.0) Ur Specific [place] 1.025 (1.005-1.025) Urine Protein 30 (1+) H (Neg-Trace) mg/dL Urine Glucose (UA) 100 H (Negative) mg/dL Urine Ketones 15 (Negative) mg/dL Urine Blood Negative (Negative) Urine Nitrite Negative (Negative) Ur Leukocyte Esterase Negative (Negative) Urine RBC 3-5 H (0-2) /HPF Urine WBC 0-5 (0-5) /HPF Ur Squamous Epith Cells 0-2 (0-2) /HPF Urine Bacteria None Seen (None Seen) Hyaline Casts 0-2 (0-2) /LPF Independent Interpretation I performed an independent interpretation of an: CT Scan ( No acute intra-abdominal pathology.) Radiology Impression Discussion of test interpretation with radiology: I have reviewed the radiologist's reading. Medications Administered Discontinued Medications Generic Name Dose Route Start Last Admin Trade Name Freq PRN Reason Stop Dose Admin Al Hydroxide/Mg Hydroxide 30 ml 10/24/23 22:20 10/24/23 22:55 Magnesium Hydrox/Alum Hydrox 30 Ml Oral.Susp PO 10/24/23 22:21 30 ml ONCE ONE Administration Famotidine 20 mg 10/24/23 22:20 10/24/23 22:55 Famotidine/Pf 20 Mg/2 Ml Vial IVPUSH 10/24/23 22:21 20 mg ONCE ONE Administration Sodium Chloride 1,000 mls @ 999 mls/hr 10/24/23 22:20 10/25/23 00:43 Ns IV 10/24/23 23:20 Infused .Q1H1M ONE Infusion Iohexol 85 ml 10/25/23 00:42 10/25/23 00:43 Iohexol 350 Mg/Ml 100 Ml Infus..Btl IV 10/25/23 00:43 85 ml ONCE ONE Administration Discharge Plan Discharge Clinical Impression: Abdominal pain Qualifiers: Abdominal location: epigastric Qualified Code(s): R10.13 - Epigastric pain Gastritis Qualifiers: Gastritis type: alcoholic Chronicity: acute Gastritis bleeding: without bleeding Qualified Code(s): K29.20 - Alcoholic gastritis without bleeding Patient Disposition: Home, Self-Care Instructions: Gastritis (ED) Additional Instructions: refrain from drinking alcohol. Drink plenty of fluids. Avoid fried food and greasy food. Prescriptions: New omeprazole 40 mg capsule,delayed release(DR/EC) 40 mg PO DAILY Qty: 14 0RF No Action ibuprofen 600 mg tablet 600 mg PO Q6H PRN (Reason: pain) Qty: 20 0RF cyclobenzaprine 5 mg tablet 5 mg PO TID PRN (Reason: muscle spasm) Qty: 10 0RF clotrimazole 1 % cream 1 appl topical BID Qty: 15 0RF oxycodone 5 mg tablet 5 mg PO BID PRN (Reason: pain) Qty: 6 0RF Rx Instructions: Partial Fill upon patient request. multivitamin Tablet 1 tab PO QAM Farxiga 5 mg tablet 5 mg PO QAM clotrimazole-betamethasone 1-0.05 % cream 1 appl topical BID 28 Days Qty: 45 0RF Rx Instructions: Apply thin coat 2 times per day acamprosate 333 mg tablet,delayed release (DR/EC) 666 mg PO TID dorzolamide-timolol 22.3-6.8 mg/mL drops ophthalmic (eye) metformin 1,000 mg tablet 1,000 mg PO BID sildenafil [Viagra] 100 mg tablet 100 mg PO DAILY PRN cholecalciferol (vitamin D3) 25 mcg (1,000 unit) tablet 25 mcg PO QAM cyanocobalamin (vitamin B-12) 1,000 mcg tablet 1,000 mcg PO QAM atorvastatin 40 mg tablet 40 mg PO DAILY omeprazole 20 mg capsule,delayed release(DR/EC) 20 mg PO BID Referrals: Jelly Johnston MD [Physician] - [place] [Primary Care Provider] -
[2023-10-24 22:52] VITALS: BP 172/91; PULSE 76; RESP 16; TEMP 36.9; O2SAT 98
== END 2023-10-25 02:22 | disposition home or self-care (01) ==
PROVIDERS: Emergency Provider Emergency Medicine
DX: R10.13 Epigastric pain (principal); K29.20 Alcoholic gastritis without bleeding; Y90.9 Presence of alcohol in blood, level not specified; E11.9 Type 2 diabetes mellitus without complications; I10 Essential (primary) hypertension; E78.5 Hyperlipidemia, unspecified; Z79.84 Long term (current) use of oral hypoglycemic drugs; Z79.02 Long term (current) use of antithrombotics/antiplatelets; Z79.899 Other long term (current) drug therapy
CPT/HCPCS: 36415; 74177; 80053; 81001; 83690; 85025; 96361; 96374; 99284; Q9967

== ENCOUNTER 2023-12-31 08:44 | Outpatient (AMB) | payer OTHER, SELFPAY ==
--- NOTE | 2023-12-31 09:13 | A.OFFVIS_ITS ---
Intake Intake Visit Reasons: recurrent phimosis and difficulty with urination Intake Note: Patient presents today for recurrent phimosis and difficulty with urination Urology Medications: sildenafil Blood Thinner: none PVR: 52ml's Telecommunications Clerk Required: No Accompanied by: Self / Same As Patient Allergies No Known Allergies [No Known Allergies*] Allergy (Verified 12/31/23 09:58) Medication List - Last Reconciled 12/31/23 by ELI Montgomery-JONNIE acamprosate 666 mg PO TID atorvastatin 40 mg PO DAILY cholecalciferol (vitamin D3) 25 mcg PO QAM clotrimazole 1% 1 appl topical BID clotrimazole-betamethasone 1-0.05 % 1 appl topical BID 4 weeks cyanocobalamin (vitamin B-12) 1,000 mcg PO QAM cyclobenzaprine 5 mg PO TID PRN dapagliflozin propanediol (Farxiga) 5 mg PO QAM dorzolamide-timolol 22.3-6.8 mg/mL mL ophthalmic (eye) ibuprofen 600 mg PO Q6H PRN lisinopril 2.5 mg PO DAILY metformin 1,000 mg PO BID multivitamin 1 tab PO QAM omeprazole 40 mg PO DAILY oxycodone 5 mg PO BID PRN pioglitazone 15 mg PO DAILY sildenafil (Viagra) 100 mg PO DAILY PRN tamsulosin 0.4 mg PO BEDTIME 30 days HPI HPI Comments History of Present Illness Details Mikal is a pleasant 58-year-old male patient of Dr. Bond. He has a PMH of the type 2 diabetes, hypertension, pancreatitis, and hypercholesteremia. He presents to the office today for follow-up of his recurrent balanitis. In discussion with the patient today he reports compliance with clotrimazole-betamthasone. He reports noting improvement in balanitis however does want to move forward with circumcision as he feels balanitis is recurrent and how he needs to continually utilize cream. In review of patient's chart it appears A1c 01/09 6.3. He reports noting ongoing issues with urinary frequency and nocturia. In office urinalysis results reviewed with the patient today. PVR 52 mL. Discussed at length potential causes of urinary frequency and nocturia. He denies any signs or symptoms of sleep apnea. He otherwise denies urinay urgency, incontinence, hematuria, dysuria, foul smelling urine, changes to urinary stream, flank pain, fever, and or chills. He otherwise offers no other issues or concerns at this time. 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 ENT Reports no additional complaints Card Reports no additional complaints Resp Reports no additional complaints GI Reports no additional complaints Reports as per HPI Musc Reports no additional complaints Neuro Reports no additional complaints Psych Reports no additional complaints Endo Details: patient reports he is diabetic Sunny/Lymph Reports no additional complaints Aller/Immun Reports no additional complaints Physical Exam Const General: cooperative, healthy appearing, comfortable, no acute distress, well developed, alert and awake Nutritional Appearance: average body habitus Orientation/consciousness: patient oriented x3 Limitations: no limitations HEENT Head: Yes normal to inspection, Yes normocephalic and Yes atraumatic Ears: hearing grossly normal bilaterally Neck Neck: Yes normal visual inspection and Yes trachea midline Chest Chest palpation & inspection: normal inspection of the chest Resp Effort & Inspection: normal respiratory effort and able to speak in complete sentences Cardio Rate: regular rate GI Inspection: Yes normal to inspection General: Yes no CVA tenderness Penis: normal penis, uncircumcised and other (patient with irritation to the head of the penis when foreskin is retracted) Meatus: meatus normal Scrotum: scrotum normal Back/Spine/Pelvis Back: no CVA tenderness Skin General skin exam: no rashes or lesions noted Neuro General: patient oriented x3 Extrem General: Yes normal to inspection Psych Appearance: grossly normal and well kempt Mental Status: mental status grossly normal Speech and movement: Normal speech and movement present and Clear speech present Affect: normal affect Attitude: cooperative Thought process: Normal thought process present Thought content: Normal thought content present Office Procedures Post Void Residual Post Residual Void Post Void Residual (PVR): 52 [id number] Void Residual by ultrasound Results AMB Urinalysis, Automated UA Leukoctes 0 Sonja/uL Last Edit by Luzma Zamudio on 12/31/23 09:55 UA Nitrite Negative Last Edit by Luzma Zamudio on 12/31/23 09:55 UA Urobilinogen 0.2 mg/dL Last Edit by Luzma Zamudio on 12/31/23 09:55 UA Protein 15 mg/dL Last Edit by Luzma Zamudio on 12/31/23 09:55 UA pH 6.0 Last Edit by Luzma Zamudio on 12/31/23 09:55 UA Blood 0 Naman/uL Last Edit by Luzma Zamudio on 12/31/23 09:55 UA Specific [place] 1.015 Last Edit by Luzma Zamudio on 12/31/23 09:55 UA Ketone Negative Last Edit by Luzma Zamudio on 12/31/23 09:55 UA Bilirubin 0 mg/dL Last Edit by Luzma Zamudio on 12/31/23 09:55 UA Glucose 0 mg/dL Last Edit by Luzma Zamudio on 12/31/23 09:55 Results Reviewed Results Reviewed: Laboratory Last Values Urine pH (Auto) 6.0 12/31/23 09:18 Specific [place] (Auto) 1.015 12/31/23 09:18 Urine Protein (Auto) 15 mg/dL 12/31/23 09:18 Glucose (UA)(Auto) 0 mg/dL 12/31/23 09:18 Urine Ketones (Auto) Negative 12/31/23 09:18 Urine Blood (Auto) 0 Naman/uL 12/31/23 09:18 Urine Nitrite (Auto) Negative 12/31/23 09:18 Urine Bilirubin (Auto) 0 mg/dL 12/31/23 09:18 Urine Urobilinogen (Auto) 0.2 mg/dL 12/31/23 09:18 Leukocyte Esterase (Auto) 0 Sonja/uL 12/31/23 09:18 Assessment & Plan Assessment & Plan (1) Nocturia: Code(s): R35.1 - Nocturia (2) Urinary frequency: Code(s): R35.0 - Frequency of micturition (3) Balanitis: Code(s): N48.1 - Balanitis Plan: Risks, benefits and alternatives to therapy were discussed. These include but are not limited to infection, bleeding, damage to local organs and tissues, need for further interventions. ? Anesthetic risks regarding cardiac arrhythmia, blood clots, and potential mortality were discussed. The patient understands the typical recovery time and the outpatient nature of the procedure. After consideration of these risks the patient gives full informed consent and they wish to move ahead with the procedure. Plan In office urinalysis results reviewed with the patient today; as noted above. PVR 52 mL. Discussed at length further treatment options of recurrent balanitis with surveillance monitoring versus circumcision; discussed risks and benefits of these interventions. Recent A1c results reviewed with the patient today; as noted above. Discussed obtaining PSA for further assessment evaluation. Will obtain retroperitoneal ultrasound for further assessment evaluation. Discussed at length lifestyle modifications to assist with urinary frequency as well as nocturia. Discussed bladder triggers/irritants. Start Flomax as discussed and prescribed. Will schedule for circumcision as discussed Follow-up in 1-3 months with imaging and labs to be completed prior; or sooner with any issues, concerns, and or questions. Orders: Orders Prostate Specific Antigen Today R35.0 - Frequency of micturition, R35.1 - Nocturia US retroperitoneal comp Today R35.0 - Frequency of micturition, R35.1 - Nocturia AMB Urinalysis Automated Today Z13.9 - Encounter for screening, unspecified Hemoglobin A1c Today E11.9 - Type 2 diabetes mellitus without complications, N48.1 - Balanitis AMB Post Void Residual by ultrasound Today Z13.9 - Encounter for screening, unspecified Medications: New tamsulosin 0.4 mg PO BEDTIME 30 days 30 caps 1RF N40.1 - Benign prostatic hyperplasia with lower urinary tract symptoms, R35.1 - Nocturia Refilled clotrimazole-betamethasone 1-0.05 % Apply thin coat 2 times per day 1 appl topical BID 4 weeks 45 grams 0RF N48.1 - Balanitis Discontinued clotrimazole 1% Discontinued Reason: Doctor's Order 1 appl topical BID 15 grams 0RF Rash oxycodone Partial Fill upon patient request. Discontinued Reason: Patient Completed Course 5 mg PO BID PRN 6 tabs 0RF pain Patient Instructions: The patient had an opportunity to ask questions regarding the treatment plan. All questions were answered. Physical exam, labs, and imaging were discussed and reviewed in detail. As well as risks, benefits, and discussion of treatment choices. No major barriers to understanding were identified. The patient expressed understanding and agreement with the above treatment plan. The patient was made aware they should contact our office by phone for worsening of their current condition, the appearance of new symptoms, or with any questions or concerns. Compliance is encouraged with any medications and follow up testing that is ordered. It is a privilege to be allowed the opportunity to participate in? your urological care.? Again, if you have any questions or concerns If you have any questions or concerns please do not hesitate to contact me. The office is [phone]. This note is constructed using voice recognition software. While every effort has been made to ensure accuracy awning spreader errors may have been included. Yours sincerely, ERIS Montgomery Coding Level of Care Code Est Pt Level 4 (59505) Diagnoses Nocturia R35.1 Urinary frequency R35.0 Balanitis N48.1 CPT Codes Post Residual Void - PVR CPT Code: 13335-Vrug Void Residual by ultrasound ([id number])
== END 2023-12-31 09:58 | disposition home or self-care (01) ==
PROVIDERS: Visit Provider Nurse Practitioner Family
DX: R35.1 Nocturia (principal); R35.0 Frequency of micturition; N48.1 Balanitis
CPT/HCPCS: 99214

== ENCOUNTER → 2023-12-31 08:44 | Outpatient (BNVA) | payer OTHER, SELFPAY | PROVIDERS: Visit Provider Nurse Practitioner Family | DX: N48.1 Balanitis (principal); R35.1 Nocturia; R35.0 Frequency of micturition | CPT/HCPCS: 51798; 81003 ==

== ENCOUNTER 2023-12-31 10:31 | Outpatient (REF) | payer OTHER, SELFPAY ==
[2023-12-31 11:18] LABS: Estimated Average Glucose 134 mg/dL; Hemoglobin A1c % 6.3 % (<6.0)
[2023-12-31 11:48] LABS: Prostate Specific Antigen 0.74 ng/mL (<0.05-4.0)
== END 2023-12-31 10:32 | disposition home or self-care (01) ==
LOC: HO.10HDL 10:31
PROVIDERS: Visit Provider Nurse Practitioner Family
DX: Z12.5 Encounter for screening for malignant neoplasm of prostate (principal); R35.1 Nocturia; R35.0 Frequency of micturition; E11.9 Type 2 diabetes mellitus without complications; N48.1 Balanitis
CPT/HCPCS: 36415; 83036; 84153

== ENCOUNTER 2024-02-02 06:43 | Day surgery (SDC) | payer OTHER, SELFPAY ==
[2024-02-02 06:53] VITALS: BP 120/79; PULSE 68; RESP 20; TEMP 36.9; O2SAT 96
[2024-02-02 07:06] LABS: Glucose, Whole Blood 129 mg/dL (60-115)
--- NOTE | 2024-02-02 07:11 | PC.NURSE ---
pt cancelled took his faxiga yesterday
--- NOTE | 2024-02-02 07:42 | PC.NURSE ---
pt came back with med list not on farxiga okay to proceed
[2024-02-02] MEDS: Lactated Ringers 1,000 ML 50 ML IVCONT (07:50)
--- NOTE | 2024-02-02 07:51 | HO.ANESPROP2 ---
[facility] Active Problems Active Problems: All Active Problems Urinary frequency (Acute) Nocturia (Acute) Blind left eye (Acute) Balanitis (Acute) Past Medical History Medical History Type 2 diabetes mellitus Hypertension Pancreatitis High cholesterol Diabetes Family History Family history of problems with anesthesia: No Surgical History History of Problems with Anesthesia: No Social History Social History Patient Tobacco Use Status: Current everyday Tobacco user Are you DNR?: No Advance Directives: No Advance Directives Information Provided: Yes Nutrition Risks: No Nutritional Risk Meds Allergies Allergy/AdvReac Type Severity Reaction Status Date / Time No Known Allergies Allergy Verified 12/31/23 09:58 [No Known Allergies*] Active Medications: Current Medications Lactated Ringer's (Lr) 1,000 mls @ 50 mls/hr IVCONT .Q20H KATE Last Admin: 02/02/24 07:50 Dose: 50 mls/hr Home Medications ?Medication ?Instructions ?Recorded ?Confirmed ?Last Taken ?Type acamprosate 333 mg tablet,delayed 666 mg PO TID 10/17/22 02/02/24 01/31/24 History release atorvastatin 40 mg tablet 40 mg PO DAILY 10/17/22 02/02/24 01/31/24 History cholecalciferol (vitamin D3) 25 25 mcg PO QAM 10/17/22 02/02/24 01/31/24 History mcg (1,000 unit) tablet metformin 1,000 mg tablet 1,000 mg PO BID 10/17/22 02/02/24 01/31/24 History multivitamin 1 tab PO QAM 12/23/22 02/02/24 01/31/24 History lisinopril 2.5 mg tablet 2.5 mg PO DAILY 12/28/23 02/02/24 01/31/24 History pioglitazone 15 mg tablet 15 mg PO DAILY 12/28/23 02/02/24 01/31/24 History Exam Height,Weight and Vital Signs: Height 172 ft Weight 78.018 kg Last Vital Signs Temp 98.4 F 02/02/24 06:53 Pulse 68 02/02/24 06:53 Resp 20 02/02/24 06:53 BP 120/79 02/02/24 06:53 Pulse Ox 96 02/02/24 06:53 O2 Del Method Room Air 02/02/24 06:53 Pertinent Lab Results Pertinent Lab Results: Laboratory Tests 02/02/24 07:02 POC Glucose 129 H Airway Mallampati Class: II TM Dist: >3cm Heart: rrr Lungs: clear Assessment and Plan Final Anesthetic Review Family History of Problems with Anesthesia: No History of Problems with Anesthesia: No NPO: Yes ASA Class: III Patient Risk: Intermediate Procedure Risk: Low Anesthetic Plan Anesthetic Plan: GA Disposition: Standard PACU
--- NOTE | 2024-02-02 07:58 | MHC.SHP ---
Pre-Procedural Eval Section A - 24 Hr Update-Section A only Date of Service: 02/02/24 The patient is an INPATIENT: No The patient has been examined within 24 hours of the surgical procedure. The History & Physical has been completed within 30 days and I have reviewed it.: Yes Section B - Complete if H&P > 30 days Chief Complaint: Balanitis Allergies: Allergies Allergy/AdvReac Type Severity Reaction Status Date / Time No Known Allergies Allergy Verified 12/31/23 09:58 [No Known Allergies*] Plan Diagnosis/Plan: Unchanged I have reviewed the history and physical and performed a pertinent physical examination on my patient. No changes have occurred unless specified. Circumcision Time Spent With Patient Time: Total time managing care of this patient today ____ minutes.
--- NOTE | 2024-02-02 10:29 | W.PM.OPN ---
Operative Note Operative Note Date of Service: 02/02/24 Narrative: PreOperative Diagnosis:? ? Balanitis Post Operative Diagnosis:?Balanitis Procedure:?Circumcision Surgeon:?Dr Geovanna Resendiz Anesthesia:? General Indication: Recurrent balanitis Procedure: After informed consent was verified the patient was brought to the operating room and placed in a supine position.? Anesthesia was performed per protocol. The patient was prepped and draped in the usual sterile fashion. Safety pause time-out was performed. Antibiotics confirmed. Penile block was performed. With the foreskin over the glans a circumferential incision is made at the level of the heller. The fore skin was then retracted and a circumferential incision was made 0.5 cm below the helelr. The foreskin is removed with cautery. Good hemostasis was observed. The skin is closed in 4 quadrants with 4-0 chromic, each quadrant closed with running 4-0 chromic, bacitracin ointment Xeroform dressing was used over the incision and incision covered with cling. The patient tolerated the procedure well and was transferred to the recovery area upon completion. Complications: None
[2024-02-02 10:30] VITALS: BP 141/82; PULSE 62; RESP 16; TEMP 36.3; O2SAT 99
[2024-02-02 10:36] VITALS: BP 138/78; PULSE 67; RESP 16; O2SAT 95
[2024-02-02 10:41] VITALS: BP 139/84; PULSE 66; RESP 16; O2SAT 97
[2024-02-02 10:46] VITALS: BP 138/72; PULSE 62; RESP 16; O2SAT 97
[2024-02-02 11:00] VITALS: BP 121/71; PULSE 61; RESP 16; TEMP 36.1; O2SAT 96
== END 2024-02-02 11:37 | disposition home or self-care (01) ==
PROVIDERS: PCP Internal Medicine; Visit Provider Urology
PROC: (CPT 54161; principal; 2024-02-02 09:00)
DX: N48.1 Balanitis (principal); R35.1 Nocturia; R35.0 Frequency of micturition; I10 Essential (primary) hypertension; E78.00 Pure hypercholesterolemia, unspecified; K85.90 Acute pancreatitis without necrosis or infection, unspecified; E11.9 Type 2 diabetes mellitus without complications; Z79.84 Long term (current) use of oral hypoglycemic drugs; Z79.899 Other long term (current) drug therapy; Z79.1 Long term (current) use of non-steroidal anti-inflammatories (NSAID); F17.210 Nicotine dependence, cigarettes, uncomplicated
CPT/HCPCS: 54161; 82947; 88304; J0690; J1100; J2250; J2405; J2704; J2795; J3010

== ENCOUNTER → 2024-02-02 06:43 | Outpatient (BNV) | payer OTHER, SELFPAY | PROVIDERS: PCP Internal Medicine; Visit Provider Urology | DX: N48.1 Balanitis (principal) | CPT/HCPCS: 54161 ==

== ENCOUNTER → 2024-02-08 08:56 | Outpatient (BNVA) | payer OTHER, SELFPAY | PROVIDERS: Visit Provider Urology ==

== ENCOUNTER 2024-02-14 11:23 | Emergency (ER) | payer OTHER, SELFPAY ==
[2024-02-14 11:37] VITALS: BP 129/78; PULSE 88; RESP 18; TEMP 36.7; O2SAT 98; BMI 27.7
--- NOTE | 2024-02-14 11:40 | ED_ITS ---
HPI - Male Genitourinary General Chief complaint: Urogenital-Male Stated complaint: Post-op infection? Time Seen by Provider: 02/14/24 12:03 Source: patient Mode of arrival: ambulatory Limitations: no limitations History of Present Illness HPI Narrative: 58 yold male s/p circumsiion procedure and presenting to the ED possible wound infection. Patient states swelling penis and some erythema. patient states penis swelling has improved. patient states procdure was done on 02/[address] Hu Related Data Home Medications ?Medication ?Instructions ?Recorded ?Confirmed acamprosate 333 mg tablet,delayed 666 mg PO TID 10/17/22 02/02/24 release atorvastatin 40 mg tablet 40 mg PO DAILY 10/17/22 02/02/24 cholecalciferol (vitamin D3) 25 25 mcg PO QAM 10/17/22 02/02/24 mcg (1,000 unit) tablet metformin 1,000 mg tablet 1,000 mg PO BID 10/17/22 02/02/24 multivitamin 1 tab PO QAM 12/23/22 02/02/24 lisinopril 2.5 mg tablet 2.5 mg PO DAILY 12/28/23 02/02/24 pioglitazone 15 mg tablet 15 mg PO DAILY 12/28/23 02/02/24 Previous Rx's ?Medication ?Instructions ?Recorded omeprazole 40 mg capsule,delayed 40 mg PO DAILY #14 caps 10/25/23 release clotrimazole-betamethasone 1 1 appl topical BID 4 weeks #45 12/31/23 %-0.05 % topical cream grams oxycodone-acetaminophen 5 mg-325 1 tab PO .[id number] PRN pain #8 tabs 02/02/24 mg tablet (Percocet) cephalexin 500 mg capsule 500 mg PO TID 7 days #21 caps 02/14/24 fluconazole 100 mg tablet 150 mg (1.5 x 100 mg) PO ONCE #1 02/14/24 (Diflucan) tab Allergies Allergy/AdvReac Type Severity Reaction Status Date / Time No Known Allergies Allergy Verified 02/14/24 11:39 [No Known Allergies*] Review of Systems 2 Review of Systems: redness penile swelling. s/p circumsision on 02/01 Yes all other systems are reviewed and are negative PMFSH Past Medical History Medical History Type 2 diabetes mellitus Hypertension Pancreatitis High cholesterol Diabetes Social History Social History Patient Tobacco Use Status: Current everyday Tobacco user Advance Directives: No Advance Directives Information Provided: No Do you have a plan to hurt others: No Plan Physical Exam 2 Vital Signs: Vital Signs: Last Vital Signs Temp 98.0 F 02/14/24 14:22 Pulse 88 02/14/24 14:22 Resp 18 02/14/24 14:22 BP 129/78 02/14/24 14:22 Pulse Ox 98 02/14/24 14:22 O2 Del Method Room Air 02/14/24 14:22 BMI result Body Mass Index 27.7 Const: General: cooperative, healthy appearing, comfortable, no acute distress, well developed, alert, awake and Physically active O rientation/consciousness: patient oriented x3 HEENT: Head: Yes normal to inspection, Yes No palpable skull fracture present, Yes normocephalic, Yes atraumatic and No abrasion Eyes: General: appearance normal, both eyes and all related structures Neck: Neck: Yes normal visual inspection, Yes full ROM, Yes no lymphadenopathy, Yes no meningeal signs, Yes trachea midline, Yes supple, No anterior neck swelling and No tender Chest: Chest palpation & inspection: normal inspection of the chest and normal palpation of entire chest wall Resp: Effort & Inspection: normal respiratory effort and able to speak in complete sentences Auscultation: clear to auscultation bilaterally Cardio: Jugular venous distension: no JVD Heart sounds: S1 normal heart sound present and S2 normal heart sound present GI: Inspection: Yes normal to inspection Palpation (GI): Soft to palpation, not firm, nontender, no guarding and not rigid : Other: General: No CVA tenderness and Yes no CVA tenderness Back/Spine/Pelvis: Back: no CVA tenderness, No CVA tenderness and No back tenderness Skin: General skin exam: no rashes or lesions noted, elasticity normal and turgor normal Neuro: General: patient oriented x3, gait normal, tone normal, moves all extremities, Normal light touch and pain sensation, no meningeal signs, no focal motor deficits, CN's II-XI intact bilaterally and normal sensation to monofilament Extrem: General: Yes normal to inspection, Yes full ROM and Yes capillary refill normal Psych: Appearance: grossly normal, well kempt and not disheveled Course Course Course Narrative: RME: 58-year-old male presents to ED for postop circumcision infection. Patient states circumcision area red. Patient had procedure this past Thursday and now is swollen tender and red. Patient states no fever or chills. Patient to be evaluated in [facility] Medications Administered Discontinued Medications Generic Name Dose Route Start Last Admin Trade Name Freq PRN Reason Stop Dose Admin Fluconazole 150 mg 02/14/24 13:58 02/14/24 14:21 Fluconazole 150 Mg Tablet PO 02/14/24 13:59 150 mg ONCE ONE Administration Medical Decision Making Medical Decision Making MDM Narrative: RME: 58 yold male presents tot he ED For possible wound infection. Case discussed with Dr. Fritz Lancaster of Urology. She recommends discharged with cepalexing and one dose of diflucan today in the ED and another dose. patient exapleind worrisome signs and informed to return to the ED immeidatley. Patient informed to follow up outpatient with Urologist Differential Diagnosis Differential Diagnoses: The differential diagnosis associated with the presentation includes (wound infeciton) Admission/Observation Consideration of admission/observation: Escalation of care including admission/observation considered Consult Healthcare Provider Management of the patient was discussed with: Medical Technologist Generalist (Dr. Lancaster URolgy) Independent Historian Clinical information obtained from an independent historian. History obtained from or confirmed by: Other (patient) External Record Review External record reviewed: Other (prior visits) Prescription Management I considered prescription management with: Antibiotic Discharge Plan Discharge Clinical Impression: Surgical wound infection Patient Disposition: Home, Self-Care Instructions: Wound Infection (ED) Additional Instructions: Return to the ED immediately for any pus discharge, foul odor, fever, chills worsening redness, increased swelling, or any other concerning symptoms. Recommend follow-up with urologist Prescriptions: New cephalexin 500 mg capsule 500 mg PO TID 7 Days Qty: 21 0RF fluconazole [Diflucan] 100 mg tablet 150 mg PO ONCE Qty: 1 0RF Rx Instructions: take after completion of cephalexin No Action omeprazole 40 mg capsule,delayed release(DR/EC) 40 mg PO DAILY Qty: 14 0RF oxycodone-acetaminophen [Percocet] 5-325 mg tablet 1 tab PO .[id number] PRN (Reason: pain) Qty: 8 0RF Rx Instructions: Partial Fill upon patient request. multivitamin Tablet 1 tab PO QAM acamprosate 333 mg tablet,delayed release (DR/EC) 666 mg PO TID metformin 1,000 mg tablet 1,000 mg PO BID cholecalciferol (vitamin D3) 25 mcg (1,000 unit) tablet 25 mcg PO QAM atorvastatin 40 mg tablet 40 mg PO DAILY lisinopril 2.5 mg tablet 2.5 mg PO DAILY pioglitazone 15 mg tablet 15 mg PO DAILY clotrimazole-betamethasone 1-0.05 % cream 1 appl topical BID 28 Days Qty: 45 0RF Rx Instructions: Apply thin coat 2 times per day Referrals: [facility] [place] Group] (post stop wound infection of circumcision site) Stand Alone Forms: Work/School Release Interventions: ED Discharge Assessment Last Done: 02/14/24 14:22 Discharge Date/Time: 02/14/24 14:22 Print Language: Vietnamese
[2024-02-14] MEDS: Fluconazole 150 MG TABLET PO (14:21)
[2024-02-14 14:22] VITALS: BP 129/78; PULSE 88; RESP 18; TEMP 36.7; O2SAT 98
== END 2024-02-14 14:22 | disposition home or self-care (01) ==
PROVIDERS: Emergency Provider Student in an Organized Health Care Education/Training Program; PCP Internal Medicine
DX: T81.49XA Infection following a procedure, other surgical site, initial encounter (principal); Y83.8 Other surgical procedures as the cause of abnormal reaction of the patient, or of later complication, without mention of misadventure at the time of the procedure; Y92.9 Unspecified place or not applicable; E11.9 Type 2 diabetes mellitus without complications; I10 Essential (primary) hypertension
CPT/HCPCS: 99283

== ENCOUNTER 2024-02-25 13:02 | Outpatient (AMB) | payer OTHER, SELFPAY ==
--- NOTE | 2024-02-25 13:07 | A.OFFVIS_ITS ---
Intake Visit Reasons: Circumcision- follow up Intake Note: Patient presents today for post op Circumcision: Urology Medications: Sildenafil Blood Thinner: none Risk Management Analyst Required: No Accompanied by: Self / Same As Patient Allergies No Known Allergies [No Known Allergies*] Allergy (Verified 02/25/24 13:08) HPI Comments Details: 02/25/2024--Kamar is here has a postop visit status post circumcision performed on 02/02/2024. The patient is placing bacitracin ointment and wrapping with gauze during the day when he is at work. He states he is using antibiotic soap to clean around the incision site. Examination-circumcision incision is healing well. I have instructed to just let shower water rinse over the area of the incision. Keep incision open to air as much as possible. The patient has follow-up with nurse practitioner with ultrasound imaging prior. Review of chart: 12/31/23--Mikal is a pleasant 58-year-old male patient of Dr. Bond. He has a PMH of the type 2 diabetes, hypertension, pancreatitis, and hypercholesteremia. He presents to the office today for follow-up of his recurrent balanitis. In discussion with the patient today he reports compliance with clotrimazole-betamthasone. He reports noting improvement in balanitis however does want to move forward with circumcision as he feels balanitis is recurrent and how he needs to continually utilize cream. In review of patient's chart it appears A1c 01/09 6.3. He reports noting ongoing issues with urinary frequency and nocturia. In office urinalysis results reviewed with the patient today. PVR 52 mL. Discussed at length potential causes of urinary frequency and nocturia. He denies any signs or symptoms of sleep apnea. He otherwise denies urinay urgency, incontinence, hematuria, dysuria, foul smelling urine, changes to urinary stream, flank pain, fever, and or chills. He otherwise offers no other issues or concerns at this time. [facility] Medical History Type 2 diabetes mellitus Hypertension Pancreatitis High cholesterol Diabetes Social History Patient Tobacco Use Status: Current everyday Tobacco user Review of Systems Const All systems reviewed & are unremarkable except as noted in HPI and below Reports no additional complaints Eyes Reports no additional complaints ENT Reports no additional complaints Card Reports no additional complaints Resp Reports no additional complaints GI Reports no additional complaints Reports as per HPI Musc Reports no additional complaints Skin/Breast Reports system reviewed and no additional complaints, except as documented Neuro Reports no additional complaints Psych Reports no additional complaints Endo Reports no additional complaints Sunny/Lymph Reports no additional complaints Aller/Immun Reports no additional complaints Results AMB Urinalysis, Automated UA Leukoctes 15 Sonja/uL Last Edit by DAVE Donaldson on 02/25/24 13:13 UA Nitrite Negative Last Edit by Dino Whittaker Rosa on 02/25/24 13:13 UA Urobilinogen 0.2 mg/dL Last Edit by Dino Whittaker [facility] on 02/25/24 13:1 3 UA Protein 30 mg/dL Last Edit by Dino Whittaker Rosa on 02/25/24 13:13 1+ Dino Whittaker 02/25/24 13:13 UA pH 5.5 Last Edit by Dino Whittaker [facility] on 02/25/24 13:13 UA Blood 0 Naman/uL Last Edit by Dino Whittaker Rosa on 02/25/24 13:13 UA Specific [place] 1.030 Last Edit by Dino Whittaker [facility] on 02/25/24 13: 13 UA Ketone Positive Last Edit by DAVE Donaldson on 02/25/24 13:13 5 mg/dL Dino Whittaker 02/25/24 13:13 UA Bilirubin 1 mg/dL Last Edit by DAVE Donaldson on 02/25/24 13:13 1+ Dino Whittaker 02/25/24 13:13 UA Glucose 0 mg/dL Last Edit by DAVE Donaldson on 02/25/24 13:13 Results Reviewed Results Reviewed: Laboratory Last Values Urine pH (Auto) 5.5 02/25/24 13:08 Specific [place] (Auto) 1.030 02/25/24 13:08 Urine Protein (Auto) 30 mg/dL 02/25/24 13:08 Glucose (UA)(Auto) 0 mg/dL 02/25/24 13:08 Urine Ketones (Auto) Positive 02/25/24 13:08 Urine Blood (Auto) 0 Naman/uL 02/25/24 13:08 Urine Nitrite (Auto) Negative 02/25/24 13:08 Urine Bilirubin (Auto) 1 mg/dL 02/25/24 13:08 Urine Urobilinogen (Auto) 0.2 mg/dL 02/25/24 13:08 Leukocyte Esterase (Auto) 15 Sonja/uL 02/25/24 13:08 Collected: 02/02/24 Location: [facility] Received: 02/02/24 Diagnosis Skin, ?foreskin?, excision: Skin with mild chronic inflammation and fibrosis; negative for malignancy. Clinical History Balanitis Microscopic Description Microscopic sections reviewed. Material Received Foreskin Gross Description Received in formalin labeled ?foreskin? is a 6.0 x 2.5 wrinkled escobar portion of foreskin excised to a maximum depth of 0.4 cm. No superficial lesions are identified. The margins are inked and the specimen is sectioned to reveal homogeneous escobar-white fibrous cut surfaces. English Language Learner Teacher sections are submitted in a cassette labeled A1. CEDS Assessment & Plan Assessment & Plan (1) Nocturia: Code(s): R35.1 - Nocturia Category: Medical (2) Urinary frequency: Code(s): R35.0 - Frequency of micturition Category: Medical (3) Balanitis: Code(s): N48.1 - Balanitis Category: Medical (4) Status post routine circumcision: Code(s): Z98.890 - Other specified postprocedural states Category: Surgical Plan Follow-up as scheduled with nurse practitioner ultrasound imaging prior. Orders: Orders AMB Urinalysis Automated Today Z13.9 - Encounter for screening, unspecified Patient Instructions: The patient had an opportunity to ask questions regarding treatment plan. The patient expressed understanding and agreement with the above treatment plan. The patient is aware they should contact our office by phone for worsening of their current condition or the appearance of new symptoms. Compliance is encouraged with any medications and followup testing that is ordered. It is a privilege to be allowed the opportunity to participate in the urologic care of your patient. If you have any questions or concerns regarding treatment for the above conditions please do not hesitate to contact me. The office telephone contact is [phone]. This note is constructed in part using voice recognition software. While every effort has been made to ensure accuracy supervisor leaf spring fabrication errors may have been included. Yours sincerely, Geovanna Resendiz MD Coding Level of Care Code Est Pt Level 3 (59540) Diagnoses Nocturia R35.1 Urinary frequency R35.0 Balanitis N48.1 Status post routine circumcision Z98.890
== END 2024-02-25 13:44 | disposition home or self-care (01) ==
LOC: HO.HUSH 13:02
PROVIDERS: PCP Internal Medicine; Visit Provider Urology
DX: R35.1 Nocturia (principal); R35.0 Frequency of micturition; N48.1 Balanitis; Z98.890 Other specified postprocedural states; Z13.9 Encounter for screening, unspecified
CPT/HCPCS: 99213

== ENCOUNTER → 2024-02-25 13:02 | Outpatient (BNVA) | payer OTHER, SELFPAY | PROVIDERS: PCP Internal Medicine; Visit Provider Urology | DX: Z48.816 Encounter for surgical aftercare following surgery on the genitourinary system (principal); R35.1 Nocturia; R35.0 Frequency of micturition | CPT/HCPCS: 81003 ==

== ENCOUNTER 2024-05-01 13:38 | Emergency (ER) | payer OTHER, SELFPAY ==
[2024-05-01 13:42] VITALS: BP 146/92; PULSE 83; RESP 20; TEMP 36.1; O2SAT 99; BMI 27.5
--- NOTE | 2024-05-01 13:44 | ECG_ITS ---
Test Reason : epigastric pain Blood Pressure : / mmHG Vent. Rate : 080 BPM Atrial Rate : 080 BPM P-R Int : 156 ms QRS Dur : 068 ms QT Int : 342 ms P-R-T Axes : 012 029 012 degrees QTc Int : 394 ms Normal sinus rhythm Possible Inferior infarct (cited on or before 24-JAN-2018) Abnormal ECG When compared with ECG of 22-OCT-2023 17:22, No significant change was found Referred By: Hayes Eaton Electronically Signed By:GRABIEL BAIRD MD
--- NOTE | 2024-05-01 13:45 | ED_ITS ---
HPI - General Adult General Chief complaint: Abdominal Pain Stated complaint: Pancreatitis Time Seen by Provider: 05/01/24 13:58 Source: patient and old records reviewed Mode of arrival: ambulatory Limitations: no limitations History of Present Illness ED Provider: ADRIAN MOSER narrative: 58 yo male with PMH of HLD, DM, HTN, pancreatitis here with c/o nausea and upper abdominal pain after ETOH 1 week ago. His symptoms have been 3 days. No vomiting or diarrhea. No black or bloody stools, no fevers, feels very similar to his prior pancreatitis. He gets it every time drinks. MD complaint: abdominal pain Onset (ago): day(s) (3) Location: abdomen Radiation: non-radiation Severity: moderate Quality: aching Pain Consistency: constant Relieving factors: none Exacerbating factors: none and eating Associated symptoms: nausea/vomiting Treatments prior to arrival: none Related Data Home Medications ?Medication ?Instructions ?Recorded ?Confirmed acamprosate 333 mg tablet,delayed 666 mg PO TID 10/17/22 02/02/24 release atorvastatin 40 mg tablet 40 mg PO DAILY 10/17/22 02/02/24 cholecalciferol (vitamin D3) 25 25 mcg PO QAM 10/17/22 02/02/24 mcg (1,000 unit) tablet metformin 1,000 mg tablet 1,000 mg PO BID 10/17/22 02/02/24 multivitamin 1 tab PO QAM 12/23/22 02/02/24 lisinopril 2.5 mg tablet 2.5 mg PO DAILY 12/28/23 02/02/24 pioglitazone 15 mg tablet 15 mg PO DAILY 12/28/23 02/02/24 Previous Rx's ?Medication ?Instructions ?Recorded omeprazole 40 mg capsule,delayed 40 mg PO DAILY #14 caps 10/25/23 release clotrimazole-betamethasone 1 1 appl topical BID 4 weeks #45 12/31/23 %-0.05 % topical cream grams oxycodone-acetaminophen 5 mg-325 1 tab PO .[id number] PRN pain #8 tabs 02/02/24 mg tablet (Percocet) cephalexin 500 mg capsule 500 mg PO TID 7 days #21 caps 02/14/24 fluconazole 100 mg tablet 150 mg (1.5 x 100 mg) PO ONCE #1 04/28/24 (Diflucan) tab ondansetron 4 mg disintegrating 4 mg PO Q8H PRN nausea and 05/01/24 tablet vomiting #20 tabs sucralfate 100 mg/mL oral 10 ml PO BID 10 days #200 mL 05/01/24 suspension (Carafate) Allergies Allergy/AdvReac Type Severity Reaction Status Date / Time No Known Allergies Allergy Verified 05/01/24 13:44 [No Known Allergies*] Review of Systems 2 Review of Systems: Constitutional : No Weight loss, No Fever, No Chills ENT/Mouth : No sore throat, No Rhinorrhea Eyes: No Swelling, No Redness Cardiovascular : No Chest Pain, No SOB, NoEdema Respiratory : No Cough, No Sputum, No Wheezing Gastrointestinal : Positive Nausea, no Vomiting, no Diarrhea, positive abdominal Pain, No Hematochezia, No Melena Genitourinary : No Dysuria, No Urinary Frequency, No Hematuria, No Urgency Musculoskeletal : No joint pain, No Myalgias, No Joint Swelling Skin : No Skin Lesions, No rash Neuro : No Weakness, No Numbness, No Dizziness, No Headache Psych : No Anxiety/Panic, No Depression All other systems reviewed and are negative. [facility] Past Medical History Attestation statement: The following information was validated with the patient. Source: old records reviewed Medical History Type 2 diabetes mellitus Hypertension Pancreatitis High cholesterol Diabetes Social History Social History Patient Tobacco Use Status: Current everyday Tobacco user Smoked in Last 30 Days: Yes Use of substances other than those prescribed or required for medical reasons: No Advance Directives: No Advance Directives Information Provided: No Physical Exam ED Vital Signs: Vital Signs - 24 hr 05/01/24 13:42 05/01/24 14:00 05/01/24 14:39 Temperature 97 F 98.3 F 98 F Pulse Rate 83 77 77 Respiratory Rate 20 12 14 Blood Pressure 146/92 H 124/72 128/80 Pulse Oximetry 99 98 98 Oxygen Delivery Method Room Air Room Air Room Air 05/01/24 15:06 05/01/24 15:11 Temperature 98 F 98 F Pulse Rate 77 77 Respiratory Rate 14 14 Blood Pressure 128/80 128/80 Pulse Oximetry 98 98 Oxygen Delivery Method Room Air Room Air BMI result Body Mass Index 27.5 Appearance: Alert. Oriented X3. No acute distress. Eyes: Pupils equal, round and reactive to light. ENT: Pharynx normal. Neck: Normal inspection. Neck supple. CVS: Normal heart rate and rhythm. Pulses normal. Respiratory: No respiratory distress. Breath sounds normal. Abdomen: Soft and mild epigastric ttp no rebound Skin: Skin warm and dry. Normal skin color. Normal skin turgor. Extremities: No lower extremity edema. No calf ttp Neuro: Oriented X 3. No motor deficit. No sensory deficit. Course Course Course Narrative: RME: done BY SHEILA Blandon. 58-year-old male history of pancreatitis but came to the ED for epigastric abdominal pain after drinking alcohol. Patient states no fever or chills or recent trauma. Mild epigastric right upper quadrant tenderness on palpation. Labs ordered. Medications Administered Discontinued Medications Generic Name Dose Route Start Last Admin Trade Name Freq PRN Reason Stop Dose Admin Morphine Sulfate 15 mg 05/01/24 14:27 05/01/24 14:50 Morphine Sulfate Immed Release 15 Mg Tablet PO 05/01/24 14:28 15 mg ONCE ONE Administration Ondansetron HCl 4 mg 05/01/24 14:27 05/01/24 14:50 Ondansetron Odt 4 Mg Tab.Rapdis TRANSLINGU 05/01/24 14:28 4 mg ONCE ONE Administration Medical Decision Making Medical Decision Making [facility] Narrative: 58 yo male with PMH of HLD, DM, HTN, pancreatitis here with c/o epigastric pain following ETOH use at this time will obtain basic labs and lipase - he is tolerating PO not toxic and has non acute abdomen will start on PO morphine and zofran. Not toxic appearance. Differential Diagnosis Differential Diagnoses: The differential diagnosis associated with the presentation includes gastritis, pancreatitis, abdominal pain no RUQ or RLQ to suggest acute biliary pathology or appendicitis Admission/Observation Consideration of admission/observation: Escalation of care including admission/observation considered tolerating PO labs reassuring will treat as gastritis Lab Data [facility] Lab Attestation statement: I reviewed the patient's lab results. 05/01/24 13:59 05/01/24 13:59 Labs: Lab Results 05/01/24 Range/Units 13:59 WBC 9.6 (4.8-10.8) X10*3/uL RBC 4.17 L (4.60-5.80) X10*6/uL Hgb 14.1 (14.0-18.0) g/dl Hct 40.3 L (42.0-52.0) % MCV 96.6 (80.0-98.0) fL MCH 33.8 H (27.0-33.0) pg MCHC 35.0 (31.0-36.0) g/dl RDW 12.3 (11.0-16.0) % Plt Count 203 (160-400) X10*3/uL MPV 9.7 (9.4-12.4) fL Immature Gran % (Auto) 0.5 H (0.0-0.4) % Neut % (Auto) 64.5 (45-73) % Lymph % (Auto) 25.8 (20-40) % [place] % (Auto) 8.2 (2-11) % Eos % (Auto) 0.7 (0-4) % Baso % (Auto) 0.3 (0-2) % Lymph # (Auto) 2.5 (1.2-4.9) X10*3/uL [place] # (Auto) 0.8 (0.1-1.2) X10*3/uL Eos # (Auto) 0.1 (0.0-0.4) X10*3/uL Baso # (Auto) 0.0 (0.0-0.2) X10*3/uL Abs Immat Gran (auto) 0.05 H (0.00-0.03) X10*3/uL Absolute Neuts (auto) 6.2 (2.0-8.3) x10*3/uL Absolute Nucleated RBC 0.000 (0.0-0.012) X10*3/uL Nucleated RBC % (auto) 0.0 (0.0-0.2) /100WBC PT 10.8 L (11.1-13.3) SEC INR 0.9 (0.9-1.1) APTT 31.4 (26.0-36.8) SEC Sodium 137 (135-145) mmol/L Potassium 3.9 (3.3-5.1) mmol/L Chloride 103 (96-108) mmol/L Carbon Dioxide 25 (22-29) mmol/L Anion Gap 13 (12-20) BUN 12 (9-16) mg/dL Creatinine 0.78 (0.5-1.4) mg/dL Estim Creat Clear Calc 96.5 Estimated GFR > 60 Random Glucose 178 H (60-115) mg/dL Calcium 10.2 D (8.4-10.2) mg/dL Total Bilirubin 0.6 (0.0-1.0) mg/dL AST 13 (5-37) U/L ALT 11 (0-40) U/L Alkaline Phosphatase 68 (39-117) U/L Troponin I High Sens < 2.7 D (<3.5-35.0) ng/L Total Protein 7.3 (6.5-8.0) g/dL Albumin 4.3 (3.5-5.0) g/dL Lipase 21 (8-78) U/L Independent Historian Clinical information obtained from an independent historian. History obtained from or confirmed by: Spouse External Record Review External record reviewed: Inpatient record Prescription Management I considered prescription management with: Pain Medication and Other Discharge Plan Discharge Clinical Impression: Acute alcoholic gastritis Qualifiers: Gastritis bleeding: without bleeding Qualified Code(s): K29.20 - Alcoholic gastritis without bleeding Patient Disposition: Home, Self-Care Instructions: Gastritis (ED) Additional Instructions: continue all medications. return for worsening symptoms or concerns avoid alcohol pancreas lab normal Prescriptions: New sucralfate [Carafate] 100 mg/mL suspension 10 ml PO BID 10 Days Qty: 200 0RF ondansetron 4 mg tablet,disintegrating 4 mg PO Q8H PRN (Reason: nausea and vomiting) Qty: 20 0RF No Action omeprazole 40 mg capsule,delayed release(DR/EC) 40 mg PO DAILY Qty: 14 0RF oxycodone-acetaminophen [Percocet] 5-325 mg tablet 1 tab PO .[id number] PRN (Reason: pain) Qty: 8 0RF Rx Instructions: Partial Fill upon patient request. cephalexin 500 mg capsule 500 mg PO TID 7 Days Qty: 21 0RF fluconazole [Diflucan] 100 mg tablet 150 mg PO ONCE Qty: 1 0RF Rx Instructions: take after completion of cephalexin multivitamin Tablet 1 tab PO QAM acamprosate 333 mg tablet,delayed release (DR/EC) 666 mg PO TID metformin 1,000 mg tablet 1,000 mg PO BID cholecalciferol (vitamin D3) 25 mcg (1,000 unit) tablet 25 mcg PO QAM atorvastatin 40 mg tablet 40 mg PO DAILY lisinopril 2.5 mg tablet 2.5 mg PO DAILY pioglitazone 15 mg tablet 15 mg PO DAILY clotrimazole-betamethasone 1-0.05 % cream 1 appl topical BID 28 Days Qty: 45 0RF Rx Instructions: Apply thin coat 2 times per day Interventions: ED Discharge Assessment Last Done: 05/01/24 15:11 Discharge Date/Time: 05/01/24 15:12 Print Language: Andorran
[2024-05-01 14:00] VITALS: BP 124/72; PULSE 77; RESP 12; TEMP 36.8; O2SAT 98
[2024-05-01 14:07] LABS: Basophils Percent Auto 0.3 % (0-2); Eosinophils Absolute Auto 0.1 X10*3/uL (0.0-0.4); Eosinophils Percent Auto 0.7 % (0-4); Hematocrit 40.3 % (42.0-52.0); Hemoglobin 14.1 g/dl (14.0-18.0); Imm Gran Abs Auto 0.05 X10*3/uL (0.00-0.03); Imm Gran Pct Auto 0.5 % (0.0-0.4); Lymphocytes Absolute Auto 2.5 X10*3/uL (1.2-4.9); Lymphocytes Percent Auto 25.8 % (20-40); MANUAL DIFF FLAG NO; Mean Corpuscular Hemoglobin 33.8 pg (27.0-33.0); Mean Corpuscular Volume 96.6 fL (80.0-98.0); Mean Platelet Volume 9.7 fL (9.4-12.4); Monocytes Absolute Auto 0.8 X10*3/uL (0.1-1.2); Monocytes Percent Auto 8.2 % (2-11); Neutrophils Absolute Auto 6.2 x10*3/uL (2.0-8.3); Neutrophils Percent Auto 64.5 % (45-73); Platelet Count 203 X10*3/uL (160-400); Red Blood Count 4.17 X10*6/uL (4.60-5.80); Red Cell Distribution Width 12.3 % (11.0-16.0); White Blood Count 9.6 X10*3/uL (4.8-10.8)
[2024-05-01 14:19] LABS: INTERNATIONAL NORM RATIO 0.9 (0.9-1.1); Prothrombin Time 10.8 SEC (11.1-13.3)
[2024-05-01 14:22] LABS: Partial Thromboplastin Time 31.4 SEC (26.0-36.8)
[2024-05-01 14:31] LABS: Alanine Aminotransferase 11 U/L (0-40); Albumin Level 4.3 g/dL (3.5-5.0); Alkaline Phosphatase 68 U/L (39-117); Anion Gap 13 (12-20); Aspartate Amino Transferase 13 U/L (5-37); Bilirubin Total 0.6 mg/dL (0.0-1.0); Blood Urea Nitrogen 12 mg/dL (9-16); Calcium 10.2 mg/dL (8.4-10.2); Carbon Dioxide 25 mmol/L (22-29); Chloride 103 mmol/L (96-108); Creatinine Clr Calc Pharmacy 96.5; Estimated Glomerular Filt Rate > 60; Glucose Random 178 mg/dL (60-115); Lipase 21 U/L (8-78); Potassium 3.9 mmol/L (3.3-5.1); Sodium 137 mmol/L (135-145); Total Protein 7.3 g/dL (6.5-8.0)
[2024-05-01 14:39] VITALS: BP 128/80; PULSE 77; RESP 14; TEMP 36.6; O2SAT 98
[2024-05-01 14:44] LABS: Troponin-I High Sensitivity < 2.7 ng/L (<3.5-35.0)
[2024-05-01] MEDS: Ondansetron ODT 4 MG TAB.RAPDIS TRANSLINGU (14:50)
[2024-05-01] MEDS: Morphine Sulfate Immed Release 15 MG TABLET PO (14:50)
--- NOTE | 2024-05-01 14:59 | PC.NURSE ---
Pt presents to ED today with c/o 6/10 abd pain along with straining with urination. A&ox3, VSS, afebrile. Pt seen by Provider and medicated per MAR. Awaiting additional orders.
[2024-05-01 15:06] VITALS: BP 128/80; PULSE 77; RESP 14; TEMP 36.6; O2SAT 98
[2024-05-01 15:11] VITALS: BP 128/80; PULSE 77; RESP 14; TEMP 36.6; O2SAT 98
== END 2024-05-01 15:12 | disposition home or self-care (01) ==
PROVIDERS: Physician Assistant; Emergency Provider Emergency Medicine; PCP Internal Medicine
DX: K29.20 Alcoholic gastritis without bleeding (principal); R11.2 Nausea with vomiting, unspecified; I10 Essential (primary) hypertension; Z79.899 Other long term (current) drug therapy
CPT/HCPCS: 36415; 80053; 83690; 84484; 85025; 85610; 85730; 93005; 99283; 99284; 99285

== ENCOUNTER → 2024-05-01 13:44 | Outpatient (BNV) | payer OTHER, SELFPAY | PROVIDERS: Emergency Provider Emergency Medicine; PCP Internal Medicine; Visit Provider Internal Medicine Cardiovascular Disease | DX: R94.31 Abnormal electrocardiogram [ECG] [EKG] (principal) | CPT/HCPCS: 93010 ==

== ENCOUNTER → 2024-06-15 09:57 | Outpatient (BNVA) | payer OTHER, SELFPAY | PROVIDERS: PCP Internal Medicine; Visit Provider Urology ==

== ENCOUNTER 2024-06-16 08:25 | Outpatient (AMB) | payer OTHER, SELFPAY ==
--- NOTE | 2024-06-15 10:47 | MHC.OFFVIS ---
Intake Visit Reasons: Incision Check Intake Note: Patient is present for incision check Urology Medication:none Antibiotic Allergy:none Blood Thinner:none Silk Screen Etcher Required: No Allergies No Known Allergies [No Known Allergies*] Allergy (Verified 06/15/24 10:48) [facility] Medical History Type 2 diabetes mellitus Hypertension Pancreatitis High cholesterol Diabetes Social History Patient Tobacco Use Status: Current everyday Tobacco user Coding
--- NOTE | 2024-06-16 08:55 | MHC.OFFVIS ---
Intake Visit Reasons: Incision Check Intake Note: Patient is present for INCISION CHECK Urology Medication:PERCOCET Antibiotic Allergy:NONE Blood Thinner:NONE Allergies No Known Allergies [No Known Allergies*] Allergy (Verified 07/14/24 09:33) Medication List - Last Reconciled 06/16/24 by Geovanna Resendiz MD acamprosate 666 mg PO TID atorvastatin 40 mg PO DAILY cefuroxime axetil 500 mg PO BID 5 days cholecalciferol (vitamin D3) 25 mcg PO QAM clotrimazole-betamethasone 1-0.05 % 1 appl topical BID lisinopril 2.5 mg PO DAILY metformin 1,000 mg PO BID multivitamin 1 tab PO QAM omeprazole 40 mg PO DAILY ondansetron 4 mg PO Q8H PRN pioglitazone 15 mg PO DAILY sucralfate (Carafate) 10 mL PO BID 10 days HPI Comments Details: 06/16/24--Kamar is here has a postop visit status post circumcision performed on 02/02/2024. He is here for incision check. Examination-circumcision incision and glans, mildly irritated, with erythema. Plan lotrisone cream and ceftin. 12/31/23--Mikal is a pleasant 58-year-old male patient of Dr. Bond. He has a PMH of the type 2 diabetes, hypertension, pancreatitis, and hypercholesteremia. He presents to the office today for follow-up of his recurrent balanitis. In discussion with the patient today he reports compliance with clotrimazole-betamthasone. He reports noting improvement in balanitis however does want to move forward with circumcision as he feels balanitis is recurrent and how he needs to continually utilize cream. In review of patient's chart it appears A1c 01/09 6.3. He reports noting ongoing issues with urinary frequency and nocturia. In office urinalysis results reviewed with the patient today. PVR 52 mL. Discussed at length potential causes of urinary frequency and nocturia. He denies any signs or symptoms of sleep apnea. He otherwise denies urinay urgency, incontinence, hematuria, dysuria, foul smelling urine, changes to urinary stream, flank pain, fever, and or chills. He otherwise offers no other issues or concerns at this time. [facility] Medical History Type 2 diabetes mellitus Hypertension Pancreatitis High cholesterol Diabetes Social History Patient Tobacco Use Status: Current everyday Tobacco user Review of Systems Const All systems reviewed & are unremarkable except as noted in HPI and below Reports no additional complaints Eyes Reports no additional complaints ENT Reports no additional complaints Card Reports no additional complaints Resp Reports no additional complaints GI Reports no additional complaints Reports as per HPI Musc Reports no additional complaints Skin/Breast Reports system reviewed and no additional complaints, except as documented Neuro Reports no additional complaints Psych Reports no additional complaints Endo Reports no additional complaints Sunny/Lymph Reports no additional complaints Aller/Immun Reports no additional complaints Assessment & Plan Assessment & Plan (1) Status post routine circumcision: Code(s): Z98.890 - Other specified postprocedural states Category: Surgical (2) Pain, penile: Code(s): N48.89 - Other specified disorders of penis Category: Medical Plan lotrisone cream and ceftin. Medications: New clotrimazole-betamethasone 1-0.05 % apply bid for 7 days then prn. 1 appl topical BID 45 grams 0RF cefuroxime axetil 500 mg PO BID 10 tabs 0RF 5 days Patient Instructions: The patient had an opportunity to ask questions regarding treatment plan. The patient expressed understanding and agreement with the above treatment plan. The patient is aware they should contact our office by phone for worsening of their current condition or the appearance of new symptoms. Compliance is encouraged with any medications and followup testing that is ordered. It is a privilege to be allowed the opportunity to participate in the urologic care of your patient. If you have any questions or concerns regarding treatment for the above conditions please do not hesitate to contact me. The office telephone contact is [phone]. This note is constructed in part using voice recognition software. While every effort has been made to ensure accuracy shop clerk errors may have been included. Yours sincerely, Geovanna Resendiz MD Coding Level of Care Code Est Pt Level 3 (27534) Diagnoses Status post routine circumcision Z98.890 Pain, penile N48.89
== END 2024-06-16 09:28 | disposition home or self-care (01) ==
PROVIDERS: PCP Internal Medicine; Visit Provider Urology
DX: Z98.890 Other specified postprocedural states (principal); N48.89 Other specified disorders of penis
CPT/HCPCS: 99213

== ENCOUNTER → 2024-06-16 08:25 | Outpatient (BNVA) | payer OTHER, SELFPAY | PROVIDERS: PCP Internal Medicine; Visit Provider Urology ==

== ENCOUNTER 2024-07-14 09:23 | Outpatient (AMB) | payer OTHER, SELFPAY ==
--- NOTE | 2024-07-14 09:33 | A.OFFVIS_ITS ---
Intake Visit Reasons: 1m follow up Intake Note: Patient is present for a 1 month follow up Urology Medication:none Antibiotic Allergy:NONE Blood Thinner:NONE Allergies No Known Allergies [No Known Allergies*] Allergy (Verified 07/14/24 09:33) HPI Comments Details: 07/14/24--Mikal is a pleasant 58-year-old male patient of Dr. Bond. He has a PMH of the type 2 diabetes, hypertension, pancreatitis, and hypercholesteremia. He initially presented to the office 12/31/23 for recurrent balanitis. He is status post circumcision on 02/02/2024. He required antibiotics due to an incisional infection. He is here to have the incision rechecked again. In evaluation the incision has healed well. He denies any further incisional pain. I have discussed importance of PSA screening. Follow- up in 9 months PSA prior. Review of chart: 06/16/24--Kamar is here has a postop visit status post circumcision performed on 02/02/2024. He is here for incision check. Examination- circumcision incision and glans, mildly irritated, with erythema. Plan lotrisone cream and ceftin. 12/31/23--Mikal is a pleasant 58-year-old male patient of Dr. Bond. He has a PMH of the type 2 diabetes, hypertension, pancreatitis, and hypercholesteremia. He presents to the office today for follow-up of his recurrent balanitis. In discussion with the patient today he reports compliance with clotrimazole-betamthasone. He reports noting improvement in balanitis however does want to move forward with circumcision as he feels balanitis is recurrent and how he needs to continually utilize cream. In review of patient's chart it appears A1c 01/09 6.3. He reports noting ongoing issues with urinary frequency and nocturia. In office urinalysis results reviewed with the patient today. PVR 52 mL. Discussed at length potential causes of urinary frequency and nocturia. He denies any signs or symptoms of sleep apnea. He otherwise denies urinay urgency, incontinence, hematuria, dysuria, foul smelling urine, changes to urinary stream, flank pain, fever, and or chills. He otherwise offers no other issues or concerns at this time. [facility] Medical History Type 2 diabetes mellitus Hypertension Pancreatitis High cholesterol Diabetes Social History Patient Tobacco Use Status: Current everyday Tobacco user Review of Systems Const All systems reviewed & are unremarkable except as noted in HPI and below Reports no additional complaints Eyes Reports no additional complaints ENT Reports no additional complaints Card Reports no additional complaints Resp Reports no additional complaints GI Reports no additional complaints Reports as per HPI Musc Reports no additional complaints Skin/Breast Reports system reviewed and no additional complaints, except as documented Neuro Reports no additional complaints Psych Reports no additional complaints Endo Reports no additional complaints Sunny/Lymph Reports no additional complaints Aller/Immun Reports no additional complaints Assessment & Plan Assessment & Plan (1) Status post routine circumcision: Code(s): Z98.890 - Other specified postprocedural states Category: Surgical (2) BPH (benign prostatic hyperplasia): Code(s): N40.0 - Benign prostatic hyperplasia without lower urinary tract symptoms Category: Medical (3) Screening PSA (prostate specific antigen): Code(s): Z12.5 - Encounter for screening for malignant neoplasm of prostate Category: Medical Plan PSA screening. Patient Instructions: The patient had an opportunity to ask questions regarding treatment plan. The patient expressed understanding and agreement with the above treatment plan. The patient is aware they should contact our office by phone for worsening of their current condition or the appearance of new symptoms. Compliance is encouraged with any medications and followup testing that is ordered. It is a privilege to be allowed the opportunity to participate in the urologic care of your patient. If you have any questions or concerns regarding treatment for the above conditions please do not hesitate to contact me. The office telephone contact is [phone]. This note is constructed in part using voice recognition software. While every effort has been made to ensure accuracy test desk supervisor errors may have been included. Yours sincerely, Geovanna Resendiz MD Coding Level of Care Code Est Pt Level 3 (29091) Diagnoses Status post routine circumcision Z98.890 BPH (benign prostatic hyperplasia) N40.0 Screening PSA (prostate specific antigen) Z12.5
== END 2024-07-14 09:52 | disposition home or self-care (01) ==
PROVIDERS: PCP Internal Medicine; Visit Provider Urology
DX: Z98.890 Other specified postprocedural states (principal); N40.0 Benign prostatic hyperplasia without lower urinary tract symptoms; Z12.5 Encounter for screening for malignant neoplasm of prostate
CPT/HCPCS: 99213

== ENCOUNTER → 2024-07-14 09:23 | Outpatient (BNVA) | payer OTHER, SELFPAY | PROVIDERS: PCP Internal Medicine; Visit Provider Urology ==

== ENCOUNTER 2024-07-29 09:38 | Outpatient (REF) | payer OTHER, SELFPAY ==
[2024-07-29 11:44] LABS: Alanine Aminotransferase 12 U/L (0-40); Albumin Level 4.2 g/dL (3.5-5.0); Alkaline Phosphatase 64 U/L (39-117); Anion Gap 10 (12-20); Aspartate Amino Transferase 14 U/L (5-37); Bilirubin Total 0.6 mg/dL (0.0-1.0); Blood Urea Nitrogen 12 mg/dL (9-16); Calcium 9.6 mg/dL (8.4-10.2); Carbon Dioxide 28 mmol/L (22-29); Chloride 104 mmol/L (96-108); Cholesterol 103 mg/dL (<200); Estimated Glomerular Filt Rate > 60; Glucose Random 139 mg/dL (60-115); HDL Cholesterol 38 mg/dL (>40); LDL Cholesterol Calculated 38 mg/dL (<100); Sodium 138 mmol/L (135-145); Total Protein 7.1 g/dL (6.5-8.0); Triglycerides 137 mg/dL (<150)
[2024-07-29 11:57] LABS: Creatinine Urine 179.93 mg/dL; Microalbum/Creatinine Ratio Ur 19.4 ug/mg cr (<30)
== END 2024-07-29 09:39 | disposition home or self-care (01) ==
LOC: HO.HHCL 09:38
PROVIDERS: Visit Provider Internal Medicine
DX: E11.65 Type 2 diabetes mellitus with hyperglycemia (principal); I10 Essential (primary) hypertension
CPT/HCPCS: 36415; 80053; 80061; 82043; 82570

== ENCOUNTER 2024-10-23 20:23 | Emergency (ER) | payer OTHER, SELFPAY ==
--- NOTE | ~2024-10-23 | CT_ITS ---
CLINICAL HISTORY: epigastric pain CT abdomen and pelvis without contrast Comparison: CT/REG/SR - CT ABDOMEN PELVIS W IV CON - 10/25/23 00:[address]/REG/SR - CT ABDOMEN PELVIS WO IV CON - 10/22/23 22:35 EST Findings: The lung bases are clear. Evaluation of the parenchymal organs is limited by the lack of intravenous contrast, however, the liver, gallbladder, spleen, pancreas, kidneys and adrenal glands are normal in appearance. No bowel obstruction, pneumoperitoneum, or pneumatosis. Interval note of a 1.5 cm duodenal diverticulum. Pelvic contents unremarkable. Appendix is normal. Small fat containing umbilical hernia. The bones are intact. IMPRESSION: No acute findings. This document has been electronically signed by: Franki Alejandro MD on 10/23/2024 21:19:10
[2024-10-23 20:35] VITALS: BP 159/91; PULSE 82; RESP 18; TEMP 36.8; O2SAT 97; BMI 29.3
--- NOTE | 2024-10-23 20:38 | ECG_ITS ---
Test Reason : ABDOMINAL PAIN Blood Pressure : / mmHG Vent. Rate : 075 BPM Atrial Rate : 075 BPM P-R Int : 174 ms QRS Dur : 070 ms QT Int : 348 ms P-R-T Axes : 033 034 001 degrees QTc Int : 388 ms Normal sinus rhythm Normal ECG When compared with ECG of 01-MAY-2024 13:52, No significant change was found Referred By: Hayes Eaton Electronically Signed By:LEONIDES SCOTT
--- NOTE | 2024-10-23 20:41 | ED.GENADULT ---
HPI - General Adult General Chief complaint: Abdominal Pain Stated complaint: Pancreatitis Time Seen by Provider: 10/23/24 23:36 Source: patient Mode of arrival: ambulatory Limitations: no limitations History of Present Illness ED Provider: HPI narrative: Patient's history of recurrent pancreatitis last episode was about an year ago been drinking heavy for last 3- 4 days comes here for epigastric pain started yesterday with slight nausea no vomiting no diarrhea Related Data Home Medications ?Medication ?Instructions ?Recorded ?Confirmed acamprosate 333 mg tablet,delayed 666 mg PO TID 10/17/22 06/16/24 release atorvastatin 40 mg tablet 40 mg PO DAILY 10/17/22 06/16/24 cholecalciferol (vitamin D3) 25 25 mcg PO QAM 10/17/22 06/16/24 mcg (1,000 unit) tablet metformin 1,000 mg tablet 1,000 mg PO BID 10/17/22 06/16/24 multivitamin 1 tab PO QAM 12/23/22 06/16/24 lisinopril 2.5 mg tablet 2.5 mg PO DAILY 12/28/23 06/16/24 pioglitazone 15 mg tablet 15 mg PO DAILY 12/28/23 06/16/24 Previous Rx's ?Medication ?Instructions ?Recorded omeprazole 40 mg capsule,delayed 40 mg PO DAILY #14 caps 10/25/23 release ondansetron 4 mg disintegrating 4 mg PO Q8H PRN nausea and 05/01/24 tablet vomiting #20 tabs sucralfate 100 mg/mL oral 10 ml PO BID 10 days #200 mL 05/01/24 suspension (Carafate) clotrimazole-betamethasone 1 1 appl topical BID #45 grams 06/16/24 %-0.05 % topical cream oxycodone 5 mg tablet 5 mg PO Q6H PRN pain #20 tabs 10/23/24 sucralfate 1 gram tablet 1 g PO TID #90 tabs 10/23/24 Allergies Allergy/AdvReac Type Severity Reaction Status Date / Time No Known Allergies Allergy Verified 10/23/24 20:37 [No Known Allergies*] Review of Systems Review of Systems: Yes all other systems are reviewed and are negative PMFSH Past Medical History Medical History Type 2 diabetes mellitus Hypertension Pancreatitis High cholesterol Diabetes Social History Social History Patient Tobacco Use Status: Current everyday Tobacco user Advance Directives: No Advance Directives Information Provided: Yes Physical Exam ED Vital Signs: Vital Signs - 24 hr 10/23/24 20:35 10/24/24 00:15 10/24/24 00:16 Temperature 98.3 F 98.6 F 98.6 F Pulse Rate 82 82 82 Respiratory Rate 18 17 17 Blood Pressure 159/91 H 166/89 H 166/89 H Pulse Oximetry 97 96 96 Oxygen Delivery Method Room Air Room Air Room Air BMI result Body Mass Index 29.3 Appearance: Alert. Oriented X3. No acute distress. Eyes: Left eye opacified from accident ENT: Pharynx normal. Oral Mucosa moist Neck: Normal inspection. Neck supple. CVS: Normal heart rate and rhythm. Pulses normal. Respiratory: No respiratory distress. Equal air entry bilateral, no wheezing/rales/rhonchi Abdomen: Soft and mild epigastric tenderness no rebound tenderness or guarding Bowel sounds are present, no mass palpable, no CVA tenderness Skin: Skin warm and dry. Normal skin color. Normal skin turgor. Extremities: No lower extremity edema. No calf tenderness Neuro: Oriented X 3. No motor deficit. Course Course Course Narrative: RME: 58-year-old male presents to ED for epigastric abdominal pain without any nausea vomiting diarrhea. Patient was drinking over vacation a lot of alcohol thinks exacerbated his pancreatitis. labs images ordered Medications Administered Discontinued Medications Generic Name Dose Route Start Last Admin Trade Name Freq PRN Reason Stop Dose Admin Al Hydroxide/Mg Hydroxide 30 ml 10/23/24 23:49 10/24/24 00:10 Magnesium Hydrox/Alum Hydrox 30 Ml Oral.Susp PO 10/23/24 23:50 30 ml ONCE ONE Administration Lidocaine HCl 15 ml 10/23/24 23:51 10/24/24 00:10 Lidocaine Hcl Viscous 2 % 15 Ml Solution MUCOUS MEM 10/23/24 23:52 15 ml ONCE ONE Administration Oxycodone HCl 10 mg 10/23/24 23:51 10/24/24 00:10 Oxycodone Hcl Immed Release 5 Mg Tablet PO 10/23/24 23:52 10 mg ONCE ONE Administration Medical Decision Making Medical Decision Making MDM Narrative: Patient with history of pancreatitis from alcohol patient has been drinking heavy for last few days lipase is normal CT scan without any acute findings of pancreatitis 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 10/23/24 20:57 10/23/24 20:57 Labs: Lab Results 10/23/24 10/23/24 Range/Units 20:57 21:13 WBC 7.4 (4.8-10.8) X10*3/uL RBC 4.18 L (4.60-5.80) X10*6/uL Hgb 14.1 (14.0-18.0) g/dl Hct 40.2 L (42.0-52.0) % MCV 96.2 (80.0-98.0) fL MCH 33.7 H (27.0-33.0) pg MCHC 35.1 (31.0-36.0) g/dl RDW 12.1 (11.0-16.0) % Plt Count 170 (160-400) X10*3/uL MPV 9.8 (9.4-12.4) fL Immature Gran % (Auto) 0.4 (0.0-0.4) % Neut % (Auto) 59.6 (45-73) % Lymph % (Auto) 28.1 (20-40) % Hans[place] % (Auto) 10.1 (2-11) % Eos % (Auto) 1.4 (0-4) % Baso % (Auto) 0.4 (0-2) % Lymph # (Auto) 2.1 (1.2-4.9) X10*3/uL [place] # (Auto) 0.8 (0.1-1.2) X10*3/uL Eos # (Auto) 0.1 (0.0-0.4) X10*3/uL Baso # (Auto) 0.0 (0.0-0.2) X10*3/uL Abs Immat Gran (auto) 0.03 (0.00-0.03) X10*3/uL Absolute Neuts (auto) 4.4 (2.0-8.3) x10*3/uL Absolute Nucleated RBC 0.000 (0.0-0.012) X10*3/uL Nucleated RBC % (auto) 0.0 (0.0-0.2) /100WBC PT 11.0 (10.9-12.4) SEC INR 0.9 (0.9-1.1) APTT 30.8 (26.0-36.8) SEC Sodium 142 (135-145) mmol/L Potassium 3.6 (3.3-5.1) mmol/L Chloride 105 (96-108) mmol/L Carbon Dioxide 29 (22-29) mmol/L Anion Gap 12 (12-20) BUN 15 (9-16) mg/dL Creatinine 0.87 (0.5-1.4) mg/dL Estim Creat Clear Calc 89.1 Estimated GFR > 60 Random Glucose 176 H (60-115) mg/dL Calcium 9.5 (8.4-10.2) mg/dL Total Bilirubin 0.5 (0.0-1.0) mg/dL AST 17 (5-37) U/L ALT 15 (0-40) U/L Alkaline Phosphatase 76 (39-117) U/L Troponin I High Sens < 2.7 (<3.5-35.0) ng/L Total Protein 7.2 (6.5-8.0) g/dL Albumin 4.2 (3.5-5.0) g/dL Lipase 33 (8-78) U/L Urine Color Yellow Urine Appearance Clear Urine pH 7.0 (5.0-9.0) Ur Specific [place] >= 1.030 H (1.005-1.025) Urine Protein 30 (1+) H (Neg-Trace) mg/dL Urine Glucose (UA) 500 H (Negative) mg/dL Urine Ketones Trace (Negative) mg/dL Urine Blood Negative (Negative) Urine Nitrite Negative (Negative) Ur Leukocyte Esterase Negative (Negative) Urine RBC 3-5 H (0-2) /HPF Urine WBC 0-5 (0-5) /HPF Ur Squamous Epith Cells 0-2 (0-2) /HPF Urine Bacteria None Seen (None Seen) Hyaline Casts 0-2 (0-2) /LPF Influenza Type A (PCR) NEGATIVE (Negative) Influenza Type B (PCR) NEGATIVE (Negative) RSV RNA Qual (PCR) NEGATIVE (Negative) SARS-CoV-2 RNA (RT-PCR) NEGATIVE (Negative) Radiology Impression Discussion of test interpretation with radiology: I have reviewed the radiologist's reading. Radiologist Impression: [address] [address] [address] Scan Report Signed Patient: Mikal Knight MR#: [id number] : 1965 Acct:[id number] Age/Sex: 58 / M ADM Date: 10/23/24 Loc: HO.ED Attending Dr: Ordering Physician: Hayes Eaton Date of Service: 10/23/24 Procedure(s): CT abdomen pelvis wo IV con Accession Number(s): [id number] cc: Hayes Eaton; Emiliana Slaughter MD~ Report Number: [id number]: Total DLP = 462.00 mGy-cm CLINICAL HISTORY: epigastric pain CT abdomen and pelvis without contrast Comparison: CT/REG/SR - CT ABDOMEN PELVIS W IV CON - 10/25/23 00:[address]/REG/SR - CT ABDOMEN PELVIS WO IV CON - 10/22/23 22:35 EST Findings: The lung bases are clear. Evaluation of the parenchymal organs is limited by the lack of intravenous contrast, however, the liver, gallbladder, spleen, pancreas, kidneys and adrenal glands are normal in appearance. No bowel obstruction, pneumoperitoneum, or pneumatosis. Interval note of a 1.5 cm duodenal diverticulum. Pelvic contents unremarkable. Appendix is normal. Small fat containing umbilical hernia. The bones are intact. IMPRESSION: No acute findings. This document has been electronically signed by: Franki Alejandro MD on 10/23/2024 21:19:10 Discharge Plan Discharge Clinical Impression: Gastritis Patient Disposition: Home, Self-Care Instructions: Gastritis (ED) Additional Instructions: Likely have alcoholic gastritis or early pancreatitis Stop drinking alcohol Continue Prilosec Sucralfate 1 tablet 3 times a day as advised Clear liquids advanced slowly avoid fried foods Prescriptions: New sucralfate 1 gram tablet 1 g PO TID Qty: 90 0RF oxycodone 5 mg tablet 5 mg PO Q6H PRN (Reason: pain) Qty: 20 0RF Rx Instructions: Partial Fill upon patient request. No Action omeprazole 40 mg capsule,delayed release(DR/EC) 40 mg PO DAILY Qty: 14 0RF sucralfate [Carafate] 100 mg/mL suspension 10 ml PO BID 10 Days Qty: 200 0RF ondansetron 4 mg tablet,disintegrating 4 mg PO Q8H PRN (Reason: nausea and vomiting) Qty: 20 0RF multivitamin Tablet 1 tab PO QAM acamprosate 333 mg tablet,delayed release (DR/EC) 666 mg PO TID metformin 1,000 mg tablet 1,000 mg PO BID cholecalciferol (vitamin D3) 25 mcg (1,000 unit) tablet 25 mcg PO QAM atorvastatin 40 mg tablet 40 mg PO DAILY clotrimazole-betamethasone 1-0.05 % cream 1 appl topical BID Qty: 45 0RF Rx Instructions: apply bid for 7 days then prn. lisinopril 2.5 mg tablet 2.5 mg PO DAILY pioglitazone 15 mg tablet 15 mg PO DAILY Interventions: ED Discharge Assessment Last Done: 10/24/24 00:16 Discharge Date/Time: 10/24/24 00:16 Print Language: Persian
[2024-10-23 21:02] LABS: MANUAL DIFF FLAG NO
[2024-10-23 21:03] LABS: Basophils Percent Auto 0.4 % (0-2); Eosinophils Absolute Auto 0.1 X10*3/uL (0.0-0.4); Eosinophils Percent Auto 1.4 % (0-4); Hematocrit 40.2 % (42.0-52.0); Hemoglobin 14.1 g/dl (14.0-18.0); Imm Gran Abs Auto 0.03 X10*3/uL (0.00-0.03); Imm Gran Pct Auto 0.4 % (0.0-0.4); Lymphocytes Absolute Auto 2.1 X10*3/uL (1.2-4.9); Lymphocytes Percent Auto 28.1 % (20-40); Mean Corpuscular HGB Conc 35.1 g/dl (31.0-36.0); Mean Corpuscular Hemoglobin 33.7 pg (27.0-33.0); Mean Corpuscular Volume 96.2 fL (80.0-98.0); Mean Platelet Volume 9.8 fL (9.4-12.4); Monocytes Absolute Auto 0.8 X10*3/uL (0.1-1.2); Monocytes Percent Auto 10.1 % (2-11); Neutrophils Absolute Auto 4.4 x10*3/uL (2.0-8.3); Neutrophils Percent Auto 59.6 % (45-73); Platelet Count 170 X10*3/uL (160-400); Red Blood Count 4.18 X10*6/uL (4.60-5.80); Red Cell Distribution Width 12.1 % (11.0-16.0); White Blood Count 7.4 X10*3/uL (4.8-10.8)
[2024-10-23 21:15] LABS: INTERNATIONAL NORM RATIO 0.9 (0.9-1.1)
[2024-10-23 21:16] LABS: Alanine Aminotransferase 15 U/L (0-40); Albumin Level 4.2 g/dL (3.5-5.0); Alkaline Phosphatase 76 U/L (39-117); Anion Gap 12 (12-20); Aspartate Amino Transferase 17 U/L (5-37); Bilirubin Total 0.5 mg/dL (0.0-1.0); Blood Urea Nitrogen 15 mg/dL (9-16); Calcium 9.5 mg/dL (8.4-10.2); Carbon Dioxide 29 mmol/L (22-29); Chloride 105 mmol/L (96-108); Creatinine Clr Calc Pharmacy 89.1; Estimated Glomerular Filt Rate > 60; Glucose Random 176 mg/dL (60-115); Lipase 33 U/L (8-78); Potassium 3.6 mmol/L (3.3-5.1); Sodium 142 mmol/L (135-145); Total Protein 7.2 g/dL (6.5-8.0)
[2024-10-23 21:18] LABS: Partial Thromboplastin Time 30.8 SEC (26.0-36.8)
[2024-10-23 21:23] LABS: Troponin-I High Sensitivity < 2.7 ng/L (<3.5-35.0)
[2024-10-23 21:38] LABS: Influenza A PCR NEGATIVE (Negative); Influenza B PCR NEGATIVE (Negative); Resp Syncy Virus RNA Qual PCR NEGATIVE (Negative); SARS COV2 PCR INHOUSE NEGATIVE (Negative)
[2024-10-23 21:46] LABS: Appearance Urine Clear; Color Urine Yellow; Glucose Urine UA 500 mg/dL (Negative); Leukocyte Esterase Urine Negative (Negative); Nitrite Urine Negative (Negative); Specific Gravity - Urine >= 1.030 (1.005-1.025); UMIC TRIGGER UACC YES; Urine Blood Negative (Negative); Urine Ketones Trace mg/dL (Negative); Urine Protein 30 (1+) mg/dL (Neg-Trace)
[2024-10-23 22:37] LABS: Bacteria Urine None Seen (None Seen); Hyaline Casts Urine 0-2 /LPF (0-2); Squamous Epithelial Cell Urine 0-2 /HPF (0-2); WBC Urine 0-5 /HPF (0-5)
[2024-10-24] MEDS: Lidocaine HCl Viscous 2 % 15 ML SOLUTION MUCOUS MEM (00:10)
[2024-10-24] MEDS: oxyCODONE HCl Immed Release 5 MG TABLET 10 MG PO (00:10)
[2024-10-24] MEDS: Magnesium Hydrox/Alum Hydrox 30 ML ORAL.SUSP PO (00:10)
[2024-10-24 00:15] VITALS: BP 166/89; PULSE 82; RESP 17; TEMP 37; O2SAT 96
[2024-10-24 00:16] VITALS: BP 166/89; PULSE 82; RESP 17; TEMP 37; O2SAT 96
== END 2024-10-24 00:16 | disposition home or self-care (01) ==
PROVIDERS: Physician Assistant; Emergency Provider Internal Medicine; PCP Internal Medicine
DX: K29.70 Gastritis, unspecified, without bleeding (principal); R10.2 Pelvic and perineal pain; R10.13 Epigastric pain; R11.0 Nausea; Z03.818 Encounter for observation for suspected exposure to other biological agents ruled out; F17.210 Nicotine dependence, cigarettes, uncomplicated; Z79.899 Other long term (current) drug therapy
CPT/HCPCS: 0241U; 36415; 74176; 80053; 81001; 83690; 84484; 85025; 85610; 85730; 93005; 99284

== ENCOUNTER → 2024-10-23 20:38 | Outpatient (BNV) | payer OTHER, SELFPAY | PROVIDERS: PCP Internal Medicine; Visit Provider Radiology Diagnostic Radiology | DX: R10.13 Epigastric pain (principal) | CPT/HCPCS: 74176 ==

== ENCOUNTER → 2024-10-23 20:38 | Outpatient (BNV) | payer OTHER, SELFPAY | PROVIDERS: Emergency Provider Internal Medicine; PCP Internal Medicine; Visit Provider Internal Medicine | DX: R10.9 Unspecified abdominal pain (principal) | CPT/HCPCS: 93010 ==

== ENCOUNTER → 2024-10-24 18:46 | Outpatient (BNV) | payer OTHER, SELFPAY | PROVIDERS: Emergency Provider Emergency Medicine; PCP Internal Medicine; Visit Provider Internal Medicine | DX: R10.13 Epigastric pain (principal) | CPT/HCPCS: 93010 ==

== ENCOUNTER 2024-11-08 13:43 | Outpatient (REF) | payer OTHER, SELFPAY | END 2024-11-08 13:44 | disposition home or self-care (01) | LOC: HO.HHCLNP 13:43 | PROVIDERS: Visit Provider Family Medicine | DX: L02.411 Cutaneous abscess of right axilla (principal) | CPT/HCPCS: 87070; 87077; 87186; 87205 ==

== ENCOUNTER 2024-11-10 09:11 | Emergency (ER) | payer OTHER, SELFPAY ==
[2024-11-10 09:38] VITALS: BP 134/77; PULSE 74; RESP 16; TEMP 36.1; O2SAT 99; BMI 29.2
[2024-11-10 09:57] LABS: MANUAL DIFF FLAG NO
[2024-11-10 09:59] LABS: Basophils Percent Auto 0.5 % (0-2); Eosinophils Absolute Auto 0.1 X10*3/uL (0.0-0.4); Eosinophils Percent Auto 0.9 % (0-4); Hemoglobin 13.7 g/dl (14.0-18.0); Imm Gran Abs Auto 0.02 X10*3/uL (0.00-0.03); Imm Gran Pct Auto 0.3 % (0.0-0.4); Lymphocytes Absolute Auto 1.7 X10*3/uL (1.2-4.9); Lymphocytes Percent Auto 25.6 % (20-40); Mean Corpuscular HGB Conc 33.4 g/dl (31.0-36.0); Mean Corpuscular Hemoglobin 33.4 pg (27.0-33.0); Mean Platelet Volume 9.9 fL (9.4-12.4); Monocytes Absolute Auto 0.5 X10*3/uL (0.1-1.2); Monocytes Percent Auto 7.5 % (2-11); Neutrophils Absolute Auto 4.2 x10*3/uL (2.0-8.3); Neutrophils Percent Auto 65.2 % (45-73); Platelet Count 246 X10*3/uL (160-400); Red Cell Distribution Width 11.9 % (11.0-16.0); White Blood Count 6.4 X10*3/uL (4.8-10.8)
[2024-11-10 10:13] LABS: Alanine Aminotransferase 14 U/L (0-40); Alkaline Phosphatase 59 U/L (39-117); Anion Gap 9 (12-20); Aspartate Amino Transferase 13 U/L (5-37); Bilirubin Total 0.4 mg/dL (0.0-1.0); Blood Urea Nitrogen 7 mg/dL (9-16); Calcium 9.2 mg/dL (8.4-10.2); Carbon Dioxide 24 mmol/L (22-29); Chloride 111 mmol/L (96-108); Estimated Glomerular Filt Rate > 60; Glucose Random 184 mg/dL (60-115); Potassium 4.9 mmol/L (3.3-5.1); Sodium 139 mmol/L (135-145); Total Protein 7.2 g/dL (6.5-8.0)
--- NOTE | 2024-11-10 13:00 | ED.SKABFB ---
HPI - Skin/Abscess/Foreign Bdy General Chief complaint: Skin/Abscess/Foreign Body Stated complaint: boil under r arm Time Seen by Provider: 11/10/24 12:31 History of Present Illness HPI narrative: Patient complains of painful abscess in right axilla, he saw primary care who put him on Bactrim and Keflex, but the abscess started draining on its own but is still painful No fever no chills no spreading redness around the arm pit no difficulty moving the arm Related Data Home Medications ?Medication ?Instructions ?Recorded ?Confirmed acamprosate 333 mg tablet,delayed 666 mg PO TID 10/17/22 06/16/24 release atorvastatin 40 mg tablet 40 mg PO DAILY 10/17/22 06/16/24 cholecalciferol (vitamin D3) 25 25 mcg PO QAM 10/17/22 06/16/24 mcg (1,000 unit) tablet metformin 1,000 mg tablet 1,000 mg PO BID 10/17/22 06/16/24 multivitamin 1 tab PO QAM 12/23/22 06/16/24 lisinopril 2.5 mg tablet 2.5 mg PO DAILY 12/28/23 06/16/24 pioglitazone 15 mg tablet 15 mg PO DAILY 12/28/23 06/16/24 Previous Rx's ?Medication ?Instructions ?Recorded omeprazole 40 mg capsule,delayed 40 mg PO DAILY #14 caps 10/25/23 release ondansetron 4 mg disintegrating 4 mg PO Q8H PRN nausea and 05/01/24 tablet vomiting #20 tabs sucralfate 100 mg/mL oral 10 ml PO BID 10 days #200 mL 05/01/24 suspension (Carafate) clotrimazole-betamethasone 1 1 appl topical BID #45 grams 06/16/24 %-0.05 % topical cream oxycodone 5 mg tablet 5 mg PO Q6H PRN pain #20 tabs 10/23/24 sucralfate 1 gram tablet 1 g PO TID #90 tabs 10/23/24 Allergies Allergy/AdvReac Type Severity Reaction Status Date / Time No Known Allergies Allergy Verified 11/10/24 09:38 [No Known Allergies*] [facility] Past Medical History Source: nursing notes reviewed Medical History Type 2 diabetes mellitus Hypertension Pancreatitis High cholesterol Diabetes Social History Social History Patient Tobacco Use Status: Current everyday Tobacco user Advance Directives: No Advance Directives Information Provided: Yes Do you have a plan to hurt others: No Plan Physical Exam Vital Signs: Vital Signs: Last Vital Signs Temp 97.0 F 11/10/24 09:38 Pulse 74 11/10/24 09:38 Resp 16 11/10/24 09:38 BP 134/77 11/10/24 09:38 Pulse Ox 99 11/10/24 09:38 O2 Del Method Room Air 11/10/24 09:38 BMI result Body Mass Index 29.2 General appearance comfortable no acute distress Head is normocephalic atraumatic Neck is supple Respiratory no distress Extremities full range motion x4 Skin the right axilla has multiple small pustules and there is a central area of fluctuance and tenderness with a small opening that is draining pus there is no surrounding erythema Course Course Course Narrative: CBC and Chem blood tests were without any acute abnormality Procedure note right axilla abscess is cleansed with Betadine Anesthesia is 8 cc 1% lidocaine A small incision is made into the opening which is already draining a small amount of pus It is probed with forceps with discharge of pus, packing is placed dressing applied Medications Administered Discontinued Medications Generic Name Dose Route Start Last Admin Trade Name Freq PRN Reason Stop Dose Admin Lidocaine HCl 5 ml 11/10/24 13:00 11/10/24 13:38 Lidocaine Hcl 1 % Mpf 5 Ml Vial SUBCUT 11/10/24 13:01 5 ml ONCE ONE Administration Lidocaine HCl 5 ml 11/10/24 13:00 11/10/24 13:38 Lidocaine Hcl 1 % Mpf 5 Ml Vial SUBCUT 11/10/24 13:01 5 ml ONCE ONE Administration Medical Decision Making Lab Data 11/10/24 09:54 11/10/24 09:54 Labs: Lab Results 11/10/24 Range/Units 09:54 WBC 6.4 (4.8-10.8) X10*3/uL RBC 4.10 L (4.60-5.80) X10*6/uL Hgb 13.7 L (14.0-18.0) g/dl Hct 41.0 L (42.0-52.0) % MCV 100.0 H (80.0-98.0) fL MCH 33.4 H (27.0-33.0) pg MCHC 33.4 (31.0-36.0) g/dl RDW 11.9 (11.0-16.0) % Plt Count 246 D (160-400) X10*3/uL MPV 9.9 (9.4-12.4) fL Immature Gran % (Auto) 0.3 (0.0-0.4) % Neut % (Auto) 65.2 (45-73) % Lymph % (Auto) 25.6 (20-40) % [place] % (Auto) 7.5 (2-11) % Eos % (Auto) 0.9 (0-4) % Baso % (Auto) 0.5 (0-2) % Lymph # (Auto) 1.7 (1.2-4.9) X10*3/uL [place] # (Auto) 0.5 (0.1-1.2) X10*3/uL Eos # (Auto) 0.1 (0.0-0.4) X10*3/uL Baso # (Auto) 0.0 (0.0-0.2) X10*3/uL Abs Immat Gran (auto) 0.02 (0.00-0.03) X10*3/uL Absolute Neuts (auto) 4.2 (2.0-8.3) x10*3/uL Absolute Nucleated RBC 0.000 (0.0-0.012) X10*3/uL Nucleated RBC % (auto) 0.0 (0.0-0.2) /100WBC Sodium 139 (135-145) mmol/L Potassium 4.9 D (3.3-5.1) mmol/L Chloride 111 H (96-108) mmol/L Carbon Dioxide 24 (22-29) mmol/L Anion Gap 9 L (12-20) BUN 7 L (9-16) mg/dL Creatinine 0.91 (0.5-1.4) mg/dL Estim Creat Clear Calc 85.0 Estimated GFR > 60 Random Glucose 184 H (60-115) mg/dL Calcium 9.2 (8.4-10.2) mg/dL Total Bilirubin 0.4 (0.0-1.0) mg/dL AST 13 (5-37) U/L ALT 14 (0-40) U/L Alkaline Phosphatase 59 (39-117) U/L Total Protein 7.2 (6.5-8.0) g/dL Albumin 4.0 (3.5-5.0) g/dL Discharge Plan Discharge Clinical Impression: Abscess Patient Disposition: Home, Self-Care Additional Instructions: Continue antibiotics prescribed by your doctor Return in 2 days for packing removal wound check Return any time for spreading redness, worse pain and swelling, fever, any sign of worsening infection any worse condition or any concerns Prescriptions: No Action omeprazole 40 mg capsule,delayed release(DR/EC) 40 mg PO DAILY Qty: 14 0RF sucralfate [Carafate] 100 mg/mL suspension 10 ml PO BID 10 Days Qty: 200 0RF ondansetron 4 mg tablet,disintegrating 4 mg PO Q8H PRN (Reason: nausea and vomiting) Qty: 20 0RF sucralfate 1 gram tablet 1 g PO TID Qty: 90 0RF oxycodone 5 mg tablet 5 mg PO Q6H PRN (Reason: pain) Qty: 20 0RF Rx Instructions: Partial Fill upon patient request. multivitamin Tablet 1 tab PO QAM acamprosate 333 mg tablet,delayed release (DR/EC) 666 mg PO TID metformin 1,000 mg tablet 1,000 mg PO BID cholecalciferol (vitamin D3) 25 mcg (1,000 unit) tablet 25 mcg PO QAM atorvastatin 40 mg tablet 40 mg PO DAILY clotrimazole-betamethasone 1-0.05 % cream 1 appl topical BID Qty: 45 0RF Rx Instructions: apply bid for 7 days then prn. lisinopril 2.5 mg tablet 2.5 mg PO DAILY pioglitazone 15 mg tablet 15 mg PO DAILY Print Language: Bengali
[2024-11-10] MEDS: Lidocaine HCl 1 % MPF 5 ML VIAL SUBCUT ×2 (13:38)
[2024-11-10 14:15] VITALS: BP 134/77; PULSE 74; RESP 16; TEMP 36.1; O2SAT 99
== END 2024-11-10 14:20 | disposition home or self-care (01) ==
PROVIDERS: Emergency Provider Emergency Medicine; PCP Internal Medicine
DX: L02.411 Cutaneous abscess of right axilla (principal); E11.9 Type 2 diabetes mellitus without complications; I10 Essential (primary) hypertension; Z79.899 Other long term (current) drug therapy
CPT/HCPCS: 10060; 36415; 80053; 85025; 99282; 99284; J2003

== ENCOUNTER 2024-11-12 08:02 | Emergency (ER) | payer OTHER, SELFPAY ==
[2024-11-12 08:03] VITALS: BP 135/79; PULSE 85; RESP 18; TEMP 35.3; O2SAT 98; BMI 36.1
--- NOTE | 2024-11-12 09:05 | ED_ITS ---
HPI - General Adult General Chief complaint: Skin/Abscess/Foreign Body Stated complaint: wound check, gauze removal Time Seen by Provider: 11/12/24 09:04 Source: patient Mode of arrival: ambulatory Limitations: no limitations History of Present Illness ED Provider: Nellie Her NP HPI narrative: Patient is a 58-year-old male who presents emergency department for wound re- evaluation. He was seen in the emergency department/12/2024; 2 days ago in regards to abscess in the right axilla was previously started on Bactrim and Keflex outpatient but was still painful in actively draining. An incision and drainage was performed and packing was placed. He states he was advised to return in 2 days for removal of the packing and a wound check. He states there is still been a little bit of mild pain but no excessive drainage. No fevers. No chills. No expanding redness, swelling, or warmth. Related Data Home Medications ?Medication ?Instructions ?Recorded ?Confirmed acamprosate 333 mg tablet,delayed 666 mg PO TID 10/17/22 06/16/24 release atorvastatin 40 mg tablet 40 mg PO DAILY 10/17/22 06/16/24 cholecalciferol (vitamin D3) 25 25 mcg PO QAM 10/17/22 06/16/24 mcg (1,000 unit) tablet metformin 1,000 mg tablet 1,000 mg PO BID 10/17/22 06/16/24 multivitamin 1 tab PO QAM 12/23/22 06/16/24 lisinopril 2.5 mg tablet 2.5 mg PO DAILY 12/28/23 06/16/24 pioglitazone 15 mg tablet 15 mg PO DAILY 12/28/23 06/16/24 Previous Rx's ?Medication ?Instructions ?Recorded omeprazole 40 mg capsule,delayed 40 mg PO DAILY #14 caps 10/25/23 release ondansetron 4 mg disintegrating 4 mg PO Q8H PRN nausea and 05/01/24 tablet vomiting #20 tabs sucralfate 100 mg/mL oral 10 ml PO BID 10 days #200 mL 05/01/24 suspension (Carafate) clotrimazole-betamethasone 1 1 appl topical BID #45 grams 06/16/24 %-0.05 % topical cream oxycodone 5 mg tablet 5 mg PO Q6H PRN pain #20 tabs 10/23/24 sucralfate 1 gram tablet 1 g PO TID #90 tabs 10/23/24 Allergies Allergy/AdvReac Type Severity Reaction Status Date / Time No Known Allergies Allergy Verified 11/12/24 08:06 [No Known Allergies*] Review of Systems Review of Systems: Yes all other systems are reviewed and are negative [facility] Past Medical History Attestation statement: The following information was validated with the patient. Source: old records reviewed Medical History Type 2 diabetes mellitus Hypertension Pancreatitis High cholesterol Diabetes Social History Social History Patient Tobacco Use Status: Current everyday Tobacco user Advance Directives: No Advance Directives Information Provided: No Do you have a plan to hurt others: No Plan Physical Exam ED Vital Signs: Vital Signs - 24 hr 11/12/24 08:03 Temperature 95.5 F L Pulse Rate 85 Respiratory Rate 18 Blood Pressure 135/79 Pulse Oximetry 98 Oxygen Delivery Method Room Air BMI result Body Mass Index 36.1 Appearance: Alert.?[place] acute distress.?Normal affect.? CVS: Heart sounds normal. Normal heart rate and rhythm.? Pulses normal.?? Respiratory: No respiratory distress.? Lung sounds clear to auscultation bilaterally?? Skin: Skin warm and dry.? Normal skin color.? Normal skin turgor.? Right axilla incision and drainage of 0.5 cm without surrounding erythema, warmth, or fluctuance. There is mild tenderness upon palpation. No axillary lymphadenopathy ? Extremities: Full range of motion Neuro: Moves all extremities spontaneously. Ambulates with normal steady gait. Medical Decision Making Medical Decision Making MDM Narrative: Patient is a 58-year-old male with past medical history of type 2 diabetes, hypertension, pancreatitis, hypercholesterolemia who presents emergency department for evaluation of a wound check to a right axillary incision and drainage performed 2 days ago as per HPI. But he is account he has been taking his oral antibiotics for approximately 4 days he was prescribed a total of a 10 day course. Packing was removed without incident. There is no evidence of worsening cellulitis, no purulent drainage to be expressed from the incision and drainage site. No localized lymphadenopathy. He is without signs of systemic toxicity. At this time feel that he is stable for discharge home continued treatment with his oral antibiotics, discussed conservative measures including warm moist compresses over the next few days and worrisome signs and symptoms that would warrant re-evaluation in the emergency department. All questions answered. Differential Diagnosis Differential Diagnoses: The differential diagnosis associated with the presentation includes (See narrative above) Independent Historian Clinical information obtained from an independent historian. History obtained from or confirmed by: Spouse External Record Review External record reviewed: Outpatient record Prescription Management I considered prescription management with: Antibiotic (Already prescribed see narrative above) Discharge Plan Discharge Clinical Impression: Abscess of skin or subcutaneous tissue Patient Disposition: Home, Self-Care Additional Instructions: Packing was removed from the previous abscess in the right armpit. This appears to be well healing. Continue applying warm moist compresses/standing in a warm shower at least twice a day to help facilitate any additional drainage that might a clue. Complete the entire course of your oral antibiotics as prescribed. Do not skip any doses or stop taking them early even if you begin to feel better. You may return with any new or worsening symptoms or concerns Prescriptions: No Action omeprazole 40 mg capsule,delayed release(DR/EC) 40 mg PO DAILY Qty: 14 0RF sucralfate [Carafate] 100 mg/mL suspension 10 ml PO BID 10 Days Qty: 200 0RF ondansetron 4 mg tablet,disintegrating 4 mg PO Q8H PRN (Reason: nausea and vomiting) Qty: 20 0RF sucralfate 1 gram tablet 1 g PO TID Qty: 90 0RF oxycodone 5 mg tablet 5 mg PO Q6H PRN (Reason: pain) Qty: 20 0RF Rx Instructions: Partial Fill upon patient request. multivitamin Tablet 1 tab PO QAM acamprosate 333 mg tablet,delayed release (DR/EC) 666 mg PO TID metformin 1,000 mg tablet 1,000 mg PO BID cholecalciferol (vitamin D3) 25 mcg (1,000 unit) tablet 25 mcg PO QAM atorvastatin 40 mg tablet 40 mg PO DAILY clotrimazole-betamethasone 1-0.05 % cream 1 appl topical BID Qty: 45 0RF Rx Instructions: apply bid for 7 days then prn. lisinopril 2.5 mg tablet 2.5 mg PO DAILY pioglitazone 15 mg tablet 15 mg PO DAILY Referrals: Emiliana Slaughter MD [Primary Care Provider] - Print Language: Montenegrin
[2024-11-12 09:23] VITALS: BP 135/79; PULSE 85; RESP 18; TEMP 35.3; O2SAT 98
== END 2024-11-12 09:26 | disposition home or self-care (01) ==
PROVIDERS: Emergency Provider Emergency Medicine; PCP Internal Medicine
DX: Z48.01 Encounter for change or removal of surgical wound dressing (principal); L02.411 Cutaneous abscess of right axilla
CPT/HCPCS: 99282

== ENCOUNTER 2025-01-03 09:14 | Outpatient (AMB) | payer OTHER, SELFPAY ==
--- NOTE | 2025-01-03 09:48 | A.OFFVIS_ITS ---
Vital Signs 01/03/25 09:54 Height 5 ft 4 in Weight 170 lb BMI 29.2 Intake Visit Reasons: drain abscess Intake Note: This patient was referred by for abscess. Pt c/o; pain, abscess. 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 Accompanied by: Other Relationship Allergies No Known Allergies [No Known Allergies*] Allergy (Verified 01/03/25 09:54) Medication List - Last Reconciled 01/03/25 by Raj Mckeon MD acamprosate 666 mg PO TID atorvastatin 40 mg PO DAILY cholecalciferol (vitamin D3) 25 mcg PO QAM clotrimazole-betamethasone 1-0.05 % 1 appl topical BID lisinopril 2.5 mg PO DAILY metformin 1,000 mg PO BID multivitamin 1 tab PO QAM omeprazole 40 mg PO DAILY ondansetron 4 mg PO Q8H PRN oxycodone 5 mg PO Q6H PRN pioglitazone 15 mg PO DAILY sucralfate (Carafate) 10 mL PO BID 10 days sucralfate 1 g PO TID HPI HPI drain abscess: Details: 59-year-old male referred for an abscess. He has had this area of swelling on the anterior lower chest for about 4 days now. He said he used to have a pimple like lesion here. He went to proceed primary care physician today and was referred to me because of the abscess. He has a known diabetic. He says that he is blood sugars are well controlled. He denies any fever or chills. [facility] Medical History (Updated 01/03/25 @ 10:12 by Raj Mckeon MD) Infected cyst of skin Type 2 diabetes mellitus Hypertension Pancreatitis High cholesterol Diabetes Social History Patient Tobacco Use Status: Current everyday Tobacco user Review of Systems Const Denies chills and Denies fever(s) Card Denies chest pain, Denies dyspnea and Denies dyspnea on exertion Resp Denies cough, Denies dyspnea and Denies dyspnea on exertion GI Denies hematochezia and Denies change in bowel habits Denies hematuria and Denies difficulty urinating Musc Denies back pain and Denies limited range of motion Neuro Denies focal weakness and Denies convulsions Psych Denies depression and Denies mood swings Physical Exam Const General: comfortable and no acute distress Orientation/consciousness: patient oriented x3 Neck Neck: Yes no lymphadenopathy Chest Other: Lower chest wall - cystic induration with central fluctuance, about 3 cm in diameter, with overlying redness of the skin Resp Auscultation: clear to auscultation bilaterally Cardio Rhythm: regular rhythm GI Palpation (GI): Soft to palpation, nontender and no guarding Neuro General: patient oriented x3 Office Procedures I&D Drain Details: He was placed supine. The area of the infected cyst was prepped and draped. Lidocaine 1% was used for local anesthesia. I then made a cruciate incision on the indurated area with a blade 11. This carried down to enter an abscess cavity. However, there was note of significant indurated subcutaneous fat so I had to sharply debride this as well using scissors. He had an open wound about 1 cm in diameter thereafter. I applied a light packing and covered this has gauze I instructed him on good wound care. I will see him again in the office next week for wound check. [id number] of Skin Abscess, complex All charges added?: Procedure code (CPT) selection complete Assessment & Plan Assessment & Plan (1) Infected cyst of skin: Code(s): L72.9 - Follicular cyst of the skin and subcutaneous tissue, unspecified; L08.9 - Local infection of the skin and subcutaneous tissue, unspecified Category: Medical Plan: He was fluctuance as well in the middle. I told him it may be best to proceed with I&D. I explained the technique of this procedure. I reviewed the risks including but not limited to bleeding and further infections, as well as the benefits and alternatives I and D and debridement was done in the office. He tolerated procedure well. I instructed him on good wound care. I will see him again in the office next week for a wound check. He can take Tylenol and ibuprofen for pain. I have prescribed him doxycycline because of the significant redness. Medications: New doxycycline hyclate 100 mg PO DAILY 7 tabs 0RF Coding Level of Care Code New Pt Level 3 (52107) Diagnoses Infected cyst of skin L72.9; L08.9 CPT Codes I&D Drain - Drain 2: [id number] of Skin Abscess, complex ([id number])
[2025-01-03 09:54] VITALS: BMI 29.2
== END 2025-01-03 10:16 | disposition home or self-care (01) ==
LOC: HO.HGS 09:14
PROVIDERS: PCP Internal Medicine; Referring Provider Internal Medicine; Visit Provider Surgery
DX: L72.9 Follicular cyst of the skin and subcutaneous tissue, unspecified (principal); L08.9 Local infection of the skin and subcutaneous tissue, unspecified
CPT/HCPCS: 10061; 99203

== ENCOUNTER → 2025-01-03 09:14 | Outpatient (BNVA) | payer OTHER, SELFPAY | PROVIDERS: PCP Internal Medicine; Referring Provider Internal Medicine; Visit Provider Surgery | DX: L72.9 Follicular cyst of the skin and subcutaneous tissue, unspecified (principal); L08.9 Local infection of the skin and subcutaneous tissue, unspecified | CPT/HCPCS: 10061 ==

== ENCOUNTER → 2025-01-12 09:53 | Outpatient (BNVA) | payer OTHER, SELFPAY | PROVIDERS: PCP Internal Medicine; Visit Provider Surgery | DX: Z09 Encounter for follow-up examination after completed treatment for conditions other than malignant neoplasm (principal); Z98.890 Other specified postprocedural states | CPT/HCPCS: 99211 ==

== ENCOUNTER 2025-01-19 07:42 | Outpatient (AMB) | payer OTHER, SELFPAY ==
--- OUTSIDE RECORDS SUMMARY | 2025-01-19 07:44 | XMS_ITS | Clinical Summary ---
Author Organization [employer] Address [address] [place] [address] Care Team Providers Care Development Spec Name Role Phone Emiliana Slaughter MD Primary Care Provide r Allergies No known active allergies Medications omega-3 (fish oil) 300 MG capsule Take 1 capsule by mouth in the morning. 07/14/20 18 Active benzonatate (Tessalon Perles) 100 MG capsuleIndicati ons:Acute cough Take TID as needed for cough 21 capsule 09/30/20 22 Active folic acid (Folvite) 1 MG tablet Take 1,000 mcg by mouth in the morning. 03/14/20 22 Active glucose blood (FREESTYLE LITE) test strip every 8 (eight) hours. 08/13/20 18 Active glipiZIDE (Glucotrol) 10 MG tabletIndicatio ns:Type 2 diabetes mellitus with hyperglycemia, without long-term current use of insulin (CMS/HCC) Take 1 tablet (10 mg) by mouth before breakfast and before evening meal. 60 tablet 11 04/13/20 23 Active clotrimazole-be tamethasone (Lotrisone) creamIndication s:Balanitis Apply topically 2 times daily. 45 g 3 08/13/20 23 Active lisinopril 2.5 MG tabletIndicatio ns:Primary hypertension TAKE 1 TABLET BY MOUTH EVERY MORNING 30 tablet 11 04/13/20 24 Active acamprosate (Campral) 333 MG EC tabletIndicatio ns:Alcohol-rela hina disorder (CMS/HCC) TAKE 2 TABLETS BY MOUTH THREE TIMES DAILY IN THE MORNING, EVENING AND BEDTIME 180 tablet 5 06/06/20 24 Active atorvastatin (Lipitor) 40 MG tablet TAKE 1 TABLET BY MOUTH EVERY MORNING 90 tablet 1 07/05/20 24 Active cyanocobalamin (Vitamin B-12) 1000 MCG tablet TAKE 1 TABLET BY MOUTH EVERY MORNING 90 tablet 1 07/05/20 24 Active omeprazole (PriLOSEC) [address] capsule TAKE 1 CAPSULE BY MOUTH TWICE DAILY IN THE MORNING AND AT BEDTIME 180 capsule 1 08/03/20 24 Active cholecalciferol (Vitamin D-3) 25 MCG tablet TAKE 1 TABLET BY MOUTH EVERY MORNING 90 tablet 1 08/03/20 24 Active pioglitazone (Actos) 15 MG tabletIndicatio ns:Type 2 diabetes mellitus with hyperglycemia, without long-term current use of insulin (CMS/HCC) TAKE 1 TABLET BY MOUTH EVERY MORNING 30 tablet 11 08/30/20 24 Active metFORMIN (Glucophage) 1000 MG tabletIndicatio ns:Type 2 diabetes mellitus with hyperglycemia, unspecified whether fpc insulin use (CMS/HCC) TAKE 1 TABLET BY MOUTH TWICE DAILY IN THE MORNING AND IN THE EVENING WITH MEALS 180 tablet 1 10/11/20 24 Active Multiple Vitamin (Multivitamin) tabletIndicatio ns:Type 2 diabetes mellitus with hyperglycemia, unspecified whether [employer] insulin use (CMS/HCC) TAKE 1 TABLET BY MOUTH EVERY MORNING WITH FOOD 90 tablet 1 12/22/19 25 Active sildenafil (Viagra) 100 MG tablet TAKE 1 TABLET 1 HOUR BEFORE SEXUAL RELATIONS ONCE DAILY NEEDED. 20 tablet 3 12/23/19 25 Active Multiple Vitamin (Multivitamin) tabletIndicatio ns:Type 2 diabetes mellitus with hyperglycemia, unspecified whether [employer] insulin use (CMS/HCC) TAKE 1 TABLET BY MOUTH EVERY MORNING WITH FOOD 90 tablet 1 04/28/20 24 025 Discontinued Viagra 100 MG tablet TAKE 1 TABLET 1 HOUR BEFORE SEXUAL RELATIONS ONCE DAILY NEEDED. 20 tablet 3 06/02/20 24 025 Discontinued(Re order (will not trigger notification to Pharmacy)) cefadroxil (Duricef) 500 MG capsule Take 1 capsule (500 mg) by mouth 2 times daily for 7 days. 14 capsule 01/04/20 25 025 doxycycline (Vibramycin) 100 MG capsule Take 1 capsule (100 mg) by mouth 2 times daily for 7 days. Take with at least 8 ounces (large glass) of water, do not lie down for 30 minutes after 14 capsule 01/04/20 025 Active Problems Problem Noted Date Diagnosed Date Axillary abscess 11/08/2024 Overview (11/08/2024): - Prescribed cephalexin (Keflex) 500 MG capsule 11/08/24 - Prescribed sulfamethoxazole-trimethoprim (Bactrim DS) 800-160 MG tablet 11/08/24 - Referred to General Surgery 11/08/24 - Ordered Wound culture 11/08/24 - ER precautions discussed. 11/08/24 - Seek medical attention for worsening symptoms. 11/08/24 Assessment & Plan (11/08/2024 9:32 AM EST): - Prescribed cephalexin (Keflex) 500 MG capsule 11/08/24 - Prescribed sulfamethoxazole-trimethoprim (Bactrim DS) 800-160 MG tablet 11/08/24 - Referred to General Surgery 11/08/24 - Ordered Wound culture 11/08/24 - ER precautions discussed. 11/08/24 - Seek medical attention for worsening symptoms. 11/08/24 Cellulitis of right axilla 11/08/2024 Recurrent phimosis of penis 11/13/2023 Assessment & Plan (01/27/2024 9:41 AM EDT): Patient will have his circumcision done on 02/02/24 he will submit his paperwork at medical records. Patient will hold Farxiga 3 days before the procedure (circumcision), he will continue to take his medication after the procedure Difficulty in urination 11/13/2023 Assessment & Plan (10/28/2024 11:24 AM EST): PSA ordered today I will refer patient to urology Colon cancer screening 11/13/2023 Primary hypertension 04/13/2023 Assessment & Plan (10/28/2024 11:20 AM EST): I advised: - Aerobic exercise to reduce BP. Initial goal of 30 min walk 3-5x/week. Increase as tolerated. - low-sodium diet (goal: <2g/day) and heart healthy diet such as DASH to reduce BP and prevent ASCVD. - Home BP monitoring 1-2 x day with goal of <140/90. - Seek immediate medical attention for chest pain, palpitations, SOB, syncope, or sudden changes in mental status. - Do not change or discontinue current prescriptions without first consulting health care provider Assessment & Plan (07/28/2024 12:27 PM EDT): Maintenance: BMP: ordered Lipid Panel: ordered ASCVD Risk: high risk 20.2% on atrovastatin 40mg dailly - Aerobic exercise to reduce BP. Initial goal of 30 min walk 3-5x/week. Increase as tolerated. - low-sodium diet (goal: <2g/day) and heart healthy diet such as DASH to reduce BP and prevent ASCVD. - Home BP monitoring 1-2 x day with goal of <140/90. - Seek immediate medical attention for chest pain, palpitations, SOB, syncope, or sudden changes in mental status. - Do not change or discontinue current prescriptions without first consulting health care provider Assessment & Plan (02/29/2024 9:45 AM EDT): - Aerobic exercise to reduce BP. Initial goal of 30 min walk 3-5x/week. Increase as tolerated. - low-sodium diet (goal: <2g/day) and heart healthy diet such as DASH to reduce BP and prevent ASCVD. - Home BP monitoring 1-2 x day with goal of <140/90. - Seek immediate medical attention for chest pain, palpitations, SOB, syncope, or sudden changes in mental status. - Do not change or discontinue current prescriptions without first consulting health care provider Assessment & Plan (01/27/2024 9:36 AM EDT): - Aerobic exercise to reduce BP. Initial goal of 30 min walk 3-5x/week. Increase as tolerated. - low-sodium diet (goal: <2g/day) and heart healthy diet such as DASH to reduce BP and prevent ASCVD. - Home BP monitoring 1-2 x day with goal of <140/90. - Seek immediate medical attention for chest pain, palpitations, SOB, syncope, or sudden changes in mental status. - Do not change or discontinue current prescriptions without first consulting health care provider Assessment & Plan (11/13/2023 9:55 AM EST): Maintenance: BMP: up to date Lipid Panel: up to date ASCVD Risk: on atorvastatin 40mg - Aerobic exercise to reduce BP. Initial goal of 30 min walk 3-5x/week. Increase as tolerated. - low-sodium diet (goal: <2g/day) and heart healthy diet such as DASH to reduce BP and prevent ASCVD. - Home BP monitoring 1-2 x day with goal of <140/90. - Seek immediate medical attention for chest pain, palpitations, SOB, syncope, or sudden changes in mental status. - Do not change or discontinue current prescriptions without first consulting health care provider Assessment & Plan (08/13/2023 10:58 AM EDT): /u - Aerobic exercise to reduce BP. Initial goal of 30 min walk 3-5x/week. Increase as tolerated. - low-sodium diet (goal: <2g/day) and heart healthy diet such as DASH to reduce BP and prevent ASCVD. - Home BP monitoring 1-2 x day with goal of <140/90. - Seek immediate medical attention for chest pain, palpitations, SOB, syncope, or sudden changes in mental status. - Do not change or discontinue current prescriptions without first consulting health care provider Assessment & Plan (04/13/2023 9:50 AM EDT): -On review of chart I notice his blood pressure has being high before, he does have now diagnosis of HTN - Aerobic exercise to reduce BP. Initial goal of 30 min walk 3-5x/week. Increase as tolerated. - low-sodium diet (goal: <2g/day) and heart healthy diet such as DASH to reduce BP and prevent ASCVD. - Home BP monitoring 1-2 x day with goal of <140/90. - Seek immediate medical attention for chest pain, palpitations, SOB, syncope, or sudden changes in mental status. -He reports he was on blood pressure medication before but made him feel very weak I will start him on lisinopril 2.5mg advise to log BP and come back in 2 weeks for nurse visit - Do not change or discontinue current prescriptions without first consulting health care provider Alcohol-related disorder 11/19/2022 Assessment & Plan (11/19/2022 1:48 PM EST): Taking acamprosate Tobacco dependence syndrome 01/10/2019 Chronic pancreatitis 03/19/2018 Type 2 diabetes mellitus with hyperglycemia 01/19 Assessment & Plan (10/28/2024 11:22 AM EST): Diabetes is: controlled - Lab Results Component Value Date HGBA1C 6.5 (A) 10/28/2024 HGBA1C 9.7 (A) 07/28/2024 HGBA1C 6.3 (H) 12/31/2023 - Lab Results Component Value Date MICROALBUR 35.0 07/29/2024 CREATININE 0.79 10/24/2024 -Changes: none - Diabetic eye exam:up to date - Diabetic foot exam:up to date - Continue lifestyle modifications - Continue current medications - Follow up: 3 months Assessment & Plan (07/28/2024 12:28 PM EDT): Diabetes is: not controlled - Lab Results Component Value Date HGBA1C 9.7 (A) 07/28/2024 HGBA1C 6.3 (H) 12/31/2023 HGBA1C 7.5 (A) 11/13/2023 - Lab Results Component Value Date MICROALBUR 0.2 05/12/2022 CREATININE 0.78 05/01/2024 -Changes: extensive counseling done - Diabetic eye exam:up to date - Diabetic foot exam:pending - Continue current medications - Follow up: 3 months Assessment & Plan (02/29/2024 9:44 AM EDT): Diabetes is: controlled - Lab Results Component Value Date HGBA1C 6.3 (H) 12/31/2023 HGBA1C 7.5 (A) 11/13/2023 HGBA1C 8.2 (A) 08/13/2023 - Lab Results Component Value Date MICROALBUR 0.2 05/12/2022 CREATININE 0.68 10/22/2023 -Changes: last A1c 2 months ago was at goal, I extensibly primary substance abuse counselor about diabetic diet, I explain to him that if glucose starts to go up his healing will be slower and her can even get an infection, he understood - Diabetic eye exam:up to date - Diabetic foot exam:pending - Continue lifestyle modifications - Continue current medications - Follow up: 3 months Assessment & Plan (01/27/2024 9:38 AM EDT): Diabetes is: controlled - Lab Results Component Value Date HGBA1C 6.3 (H) 12/31/2023 HGBA1C 7.5 (A) 11/13/2023 HGBA1C 8.2 (A) 08/13/2023 - Lab Results Component Value Date MICROALBUR 0.2 05/12/2022 CREATININE 0.68 10/22/2023 -Changes: none - Diabetic eye exam:up to date - Diabetic foot exam:pending - Continue lifestyle modifications - Continue current medications - Follow up: 3 months Assessment & Plan (11/13/2023 9:55 AM EST): Improving - Lab Results Component Value Date HGBA1C 7.5 (A) 11/13/2023 HGBA1C 8.2 (A) 08/13/2023 HGBA1C 8.8 (A) 03/10/2023 - Lab Results Component Value Date MICROALBUR 0.2 05/12/2022 CREATININE 0.68 10/22/2023 - Diabetic eye exam:up to date - Diabetic foot exam:pending - Continue lifestyle modifications, patient tells me now he has being adherent to diabetic diet and is avoiding all type of sweats and soft drinks - Continue current medications Assessment & Plan (08/13/2023 10:58 AM EDT): - Lab Results Component Value Date HGBA1C 8.8 (A) 03/10/2023 HGBA1C 9.3 (A) 11/19/2022 HGBA1C 6.8 (H) 05/12/2022 - Lab Results Component Value Date MICROALBUR 0.2 05/12/2022 CREATININE 0.89 03/10/2023 - - Diabetic eye exam:up to date - Diabetic foot exam:pending - Continue lifestyle modifications - C/w metformin and glipizide, he is not taking fraxiga due to recurrent UTI and balanitis, I added today pioglitazone 15mg daily - Assessment & Plan (04/13/2023 9:45 AM EDT): - Lab Results Component Value Date HGBA1C 8.8 (A) 03/10/2023 HGBA1C 9.3 (A) 11/19/2022 HGBA1C 6.8 (H) 05/12/2022 - Lab Results Component Value Date MICROALBUR 0.2 05/12/2022 CREATININE 0.89 03/10/2023 - - Diabetic eye exam:up to date - Diabetic foot exam:pending - Continue lifestyle modifications - Today his glucose is 224 I will increase his glipizide to 10mg BID and advise not to skip any meal Assessment & Plan (03/10/2023 4:48 PM EDT): - Lab Results Component Value Date HGBA1C 8.8 (A) 03/10/2023 HGBA1C 9.3 (A) 11/19/2022 HGBA1C 6.8 (H) 05/12/2022 - Lab Results Component Value Date MICROALBUR 0.2 05/12/2022 - Diabetic eye exam: up to date - Diabetic foot exam: pending - Continue lifestyle modifications -I increase his glipizide to 5mg twice a day, continue with rest of medications, be adherent to diabetic diet RTC 3-4 weeks with glucose log 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 Dyslipidemia 09/14/2012 Assessment & Plan (03/10/2023 4:49 PM EDT): Lipid panel ordered with labs Assessment & Plan (11/19/2022 12:55 PM EST): Related to accident Noncompliance with treatment 09/14/2012 Obesity 09/14/2012 Smoker 09/14/2012 Pain in wrist 07/13/2012 Encounters Date Type Department Care Team Description 01/03/2025 8:40 AM EDT Office Visit [facility] [address] [place] [phone] Jerman Morrell MD Cutaneous abscess of right upper extremity (Primary Dx); Cutaneous abscess of abdominal wall; Primary hypertension 12/22/2024 Refill [facility] [address] [place] [address] Emiliana Slaughter MD 12/22/2024 Refill [facility] [address] [place] [address] Emiliana Slaughter MD 12/21/2024 Refill [facility] [address] [place] [address] Emiliana Slaughter MD Type 2 diabetes mellitus with hyperglycemia, unspecified whether [employer] insulin use ([facility]) 11/21/2024 Refill [facility] [address] [place] [address] Emiliana Slaughter MD 11/08/2024 9:00 AM EST Office Visit [facility] [address] [place] [phone] Alicia Dukes MD Axillary abscess (Primary Dx); Cellulitis of right axilla 11/01/2024 Telephone [facility] [address] [place] [phone] Emiliana Slaughter MD Results 10/28/2024 9:45 AM EST Office Visit [facility] [address] [place] [phone] Emiliana Slaughter MD Primary hypertension (Primary Dx); Type 2 diabetes mellitus with hyperglycemia, without long-term current use of insulin ([facility]); Difficulty in urination 10/28/2024 Travel 10/23/2024 Orders Only [facility] External Provider, [facility] from Last 3 Months Immunizations Name Administration Dates Next Due Hep B, adult 01/10/2019,10/13/2001,09/08/2001 Influenza Injectable Quadriv alant Preservative Free IIV4 MDCK 09/15/2023 Influenza injectable quadriv alent IIV4 with preservative 08/03/2019,08/10/2018 Influenza injectable quadriv alent preservative free 07/16/2022,06/27/2021,09/28/2020,07/30 Influenza, Split (incl. jill fied surface antigen) 08/10/2013,07/13/2012 Influenza, seasonal, injecta ble, preservative free 07/29/2024,08/16/2016 Pfizer Covid-19 Vaccine 12+ 07/29/2024 Pfizer Covid-19 Vaccine 12+ Bivalent 07/23/2022 Pneumococcal Conjugate PCV 20 01/27/2024 Pneumococcal Polysaccharide PPSV23 01/10/2019 TD (adult), 2 Lf tetanus tox oid, preservative free, adsorbed 03/30/2007 Tdap 08/20/2016 Social History Tobacco Use Types Packs/Day Years Used Date Smoking Tobacco: Every Day Cigarettes Passive Smoke Exposure: Current Smokeless Tobacco: Never Tobacco Cessation:Ready to Q uit: Not Asked; Counseling Given: Not Answered Alcohol Use Standard Drinks/Week Comments Yes 0 (1 standard drink = 0.6 oz pur e alcohol) socially Depression Answer Date Recorded Patient Health Questionnaire-9 Score 0 01/27/2024 Patient Health Questionnaire-9 Score 0 01/27/2024 Last PHQ-9: Questionnaire Data Not on file 0 01/27/2024 Housing Stability Answer Date Recorded What is your housing situation today? I have shaina mix 08/07/[address] you li ve. Do you have problems with any of the following? None of the above 08/07/2023 Food Insecurity Answer Date Recorded Within the past 12 months, y ou worried that your food would run out before you got money to buy more: Never True 08/07/2023 Within the past 12 months,th e food you bought just didn't last and you didn't have enough money to get more: Never True Transportation Answer Date Recorded In the past 12 months, has l ack of transportation kept you from medical appts, meetings, work or from getting things needed for daily living? No 08/07/2023 Utilities Answer Date Recorded In the past 12 months, has t he electric, gas, oil or water company threatened to shut off services in your home? No 08/07/2023 Depression Answer Date Recorded Patient Health Questionnaire-2 Score 0 01/27/2024 Internet Access Answer Date Recorded Internet Access Q1 Yes 10/20/2024 Internet Access Q2 Not on file 10/20/2024 Sex and Gender Information Value Date Recorded Sex Assigned at Male 08/18/2022 10:16 AM EDT Legal Sex Male 10:16 AM EDT Gender Identity Male 08/18/2022 10:16 AM EDT Sexual Orientation Straight 08/18/2022 10 :16 AM EDT Last Filed Vital Signs Vital Sign Reading Time Taken Comments Blood Pressure 157/91 01/03/2025 8:37 AM EDT Pulse 95 01/03/2025 8:37 AM EDT Temperature 36.3 ??C (97.3 ??F) 01/03/2025 8:37 AM ED T Respiratory Rate 18 01/03/2025 8:37 AM EDT Oxygen Saturation 98% 01/03/2025 8:37 AM EDT Inhaled Oxygen Concentration - - Weight 77.6 kg (171 lb) 01/03/2025 8:37 AM EDT Height 167.6 cm (5' 6 ) 10/28/2024 10:06 AM EST Body Mass Index 27.6 10/28/2024 10:06 AM EST Plan of Treatment Upcoming Encounters Date Type Department Care Team (Late st Contact Info) Description 02/09/2025 9:00 AM EDT Office Visit [facility] [address] [place] [address] Emiliana Slaughter MD [address] [place] [address] Health Maintenance Due Date Last Done Comments CT Colonography 1967 Colonoscopy 1967 FIT 1967 FOBT 1967 Sigmoidoscopy 1967 Diabetes: Foot Exam 1977 Zoster Vaccines (1 of 2) 2017 Dental Oral Exam 04/09/2019 10/08/2018 Dental X-Ray: Bitewings 10/09/2019 10/08/2018, 05/07 Dental Prophylaxis 02/16/2020 08/16/2019, 11/24/2018 Dental X-Ray: Full Mouth 10/09/2021 10/08/2018 Depression Screening 01/26/2025 01/27/2024, 01/27/20 Diabetes: Hemoglobin A1C 04/27/2025 025, 07/28/2024, 12/31/2023, Additional history exists Eye Exam 05/28/2025 05/28/2023, 05/19, 05/28/2023, Additional history exists Diabetes: Urine Protein Screening 07/29/2025 07/29/2024, 03/10/2023, 05/12/2022, Additional history exists Lipid Panel 07/29/2025 07/29/2024, 02/17, 05/12/2022, Additional history exists SDOH Screening 10/20/2025 10/20/2024 Alcohol/Substance Use Screening 10/28/2025 10/28/2024 Tobacco Screening 01/03/2026 01/03/2025 DTaP/Tdap/Td Vaccines (2 - Td or Tdap) 08/20/2026 08/20/2016, 03/30/2007 Colorectal Cancer Screening 11/25/2026 FIT DNA/Cologuard 11/25/2026 11/25/2023 RSV Patients and Patients Aged 60 years or older (1 - 1-dose 75+ series) 2042 Hepatitis B Vaccines Completed 01/10/2019, 10/13/2001, 09/08/2001 Hepatitis C Screening Completed 08/20/2021 HIV Screening Completed 05/29/2022, 05/2022, 03/24/2022, Additional history exists Pneumococcal Vaccine: 50+ Years Completed 01/27/2024, 01/10/2019 COVID-19 Vaccine Completed 07/29/2024, , 07/23/2022, Additional history exists Influenza Vaccine Completed 07/29/2024, , 07/16/2022, Additional history exists HIB Vaccines Aged Out No longer eligi ble based on patient's age to complete this topic HPV Vaccines Aged Out No longer eligi ble based on patient's age to complete this topic Hepatitis A Vaccines Aged Out No long er eligible based on patient's age to complete this topic IPV Vaccines Aged Out No longer eligi ble based on patient's age to complete this topic Meningococcal Vaccine Aged Out No rosetta vaishali eligible based on patient's age to complete this topic RSV under 20 months Aged Out No longe r eligible based on patient's age to complete this topic Rotavirus Vaccines Aged Out No longer eligible based on patient's age to complete this topic Procedures Procedure Name Priority Date/Time Associated Diagnosis Comments COMPREHENSIVE METABOLIC PANEL Routine 11/10/2024 9:54 AM EST CBC WITH AUTO DIFFERENTIAL Routine 11/10/2024 9:54 AM EST GRAM STAIN Routine 11/08/2024 12:00 AM EST WOUND CULTURE Routine 11/08/2024 12:00 AM EST PSA, TOTAL WITH REFLEX TO PSA, FREE Routine 10/28/2024 10:41 AM EST Difficulty in urination POCT GLYCATED HEMOGLOBIN, TOTAL Routine 10/28/2024 10:13 AM EST Type 2 diabetes mellitus with hyperglycemia, without long-term current use of insulin ([facility]) POCT GLUCOSE Routine 10/28/2024 10:13 AM EST Type 2 diabetes mellitus with hyperglycemia, without long-term current use of insulin ([facility]) HIGH SENSITIVITY TROPONIN I Routine 10/24/2024 7:31 PM EST LIPASE Routine 10/24/2024 7:31 PM EST COMPREHENSIVE METABOLIC PANEL Routine 10/24/2024 7:31 PM EST APTT Routine 10/24/2024 7:31 PM EST PROTHROMBIN TIME-INR Routine 10/24/2024 7:31 PM EST CBC WITH AUTO DIFFERENTIAL Routine 10/24/2024 7:[address] ABDOMEN PELVIS WO CONTRAST Routine 10/23/2024 9:19 PM EST URINALYSIS, COMPLETE, WITH REFLEX TO CULTURE Routine 10/23/2024 9:13 PM EST HIGH SENSITIVITY TROPONIN I Routine 10/23/2024 8:57 PM EST APTT Routine 10/23/2024 8:57 PM EST PROTHROMBIN TIME-INR Routine 10/23/2024 8:57 PM EST LIPASE Routine 10/23/2024 8:57 PM EST COMPREHENSIVE METABOLIC PANEL Routine 10/23/2024 8:57 PM EST CBC WITH AUTO DIFFERENTIAL Routine 10/23/2024 8:57 PM EST SARS COV2/INFLUENZA A/B AND RSV RNA QL NAAT Routine 10/23/2024 8:57 PM EST ALBUMIN, RANDOM URINE W/CREATININE Routine 07/29/2024 9:39 AM EDT Type 2 diabetes mellitus with hyperglycemia, without long-term current use of insulin (CMS/HCC) LIPID PANEL, STANDARD Routine 07/29/2024 9:39 AM EDT Primary hypertension Type 2 diabetes mellitus with hyperglycemia, without long-term current use of insulin (CMS/HCC) LAB COLOGUARD?? COLON CANCER SCREEN Routine 11/25/2023 1:01 AM EST Colon cancer screening HIV 1/2 ANTIGEN/ANTIBODY, FOURTH GENERATION W/RFL Routine 05/29/2022 9:57 AM EDT ZZZ HISTORICAL HEPATITIS C AB W/REFL TO HCV RNA, QN, PCR Routine 08/20/2021 10:33 AM EDT PROPHYLAXIS - ADULT Routine 08/16/2019 1 2:00 AM EDT INTRAORAL - COMPLETE SERIES OF RADIOGRAPHIC IMAGES Routine 10/08/2018 12:00 AM EST COMPREHENSIVE ORAL EVALUATION - NEW OR ESTABLISHED PATIENT Routine 10/08/2018 12:00 AM EST from Last 3 Months or Most Recently Relevant to Health Maintenance Results * (ABNORMAL) CBC auto differential (11/10/2024 9:54 AM EST) Only the most recent of3 resultswithin the time period is included. White Blood Count 6.4 4.8 - 10.8 X10*3/uL [facility] Red Blood Count 4.10(L) 4.60 - 5.80 X10*6/uL [facility] Hemoglobin 13.7(L) 14.0 - 18.0 g/dl [facility] Hematocrit 41.0(L) 42.0 - 52.0 % [facility] Mean Corpuscular Volume 100.0(H) 80.0 - 98.0 fL [facility] Mean Corpuscular Hemoglobin 33.4(H) 27.0 - 33.0 pg [facility] Mean Corpuscular HGB Conc 33.4 31.0 - 36.0 g/dl [facility] Red Cell Distribution Width 11.9 11.0 - 16.0 % [facility] Platelet Count 246 160 - 400 X10*3/uL [facility] Mean Platelet Volume 9.9 9.4 - 12.4 fL [facility] Neutrophils Percent Auto 65.2 45 - 73 % [facility] Imm Gran Pct Auto 0.3 0.0 - 0.4 % [facility] Lymphocytes Percent Auto 25.6 20 - 40 % [facility] Monocytes Percent Auto 7.5 2 - 11 % [facility] Eosinophils Percent Auto 0.9 0 - 4 % [facility] Basophils Percent Auto 0.5 0 - 2 % [facility] NRBC Pct Auto 0.0 0.0 - 0.2 /100WBC [facility] Neutrophils Absolute Auto 4.2 2.0 - 8.3 x10*3/uL [facility] Imm Gran Abs Auto 0.02 0.00 - 0.03 X10*3/uL [facility] Lymphocytes Absolute Auto 1.7 1.2 - 4.9 X10*3/uL [facility] Monocytes Absolute Auto 0.5 0.1 - 1.2 X10*3/uL [facility] Eosinophils Absolute Auto 0.1 0.0 - 0.4 X10*3/uL [facility] Basophils Absolute Auto 0.0 0.0 - 0.2 X10*3/uL [facility] NRBC Abs Auto 0.000 0.0 - 0.012 X10*3/uL [facility] 11/10/2024 9:54 AM EST 11/10/2024 9:56 AM EST us Generic External Data Provider LAB BLOOD ORDERAB LES Final Result [facility] [address] [place] [address] [phone] * (ABNORMAL) Comprehensive Metabolic Panel (11/10/2024 9:54 AM EST) Only the most recent of3 resultswithin the time period is included. Sodium 139 135 - 145 mmol/L [facility] Potassium 4.9 3.3 - 5.1 mmol/L [facility] Chloride 111(H) 96 - 108 mmol/L [facility] Carbon Dioxide 24 22 - 29 mmol/L [facility] Anion Gap 9(L) 12 - 20 [facility] Urea Nitrogen (BUN) 7(L) 9 - 16 mg/dL [facility] Creatinine, Serum 0.91 0.5 - 1.4 mg/dL [facility] Creatinine Clr Calc Pharmacy 85.0 [facility] Comment:eGFR (calculated fro m the MDRD study equation) and eCrCl(calculated from the Cockcroft-Gault equation) are based ondifferent parameters and may not yield comparable results.If eCrCl result is absurd, please check patient'sheight/weight. Estimated Glomerular Filt Rate >60 [facility] Comment:Chronic Kidney Disea se: Estimated GFR < 60 mL/min/1.88h8Yqpkyo Kidney Disease: Estimated GFR < 15 mL/min/1.73m2 Glucose 184(H) 60 - 115 mg/dL [facility] Calcium 9.2 8.4 - 10.2 mg/dL [facility] Bilirubin, Total 0.4 0.0 - 1.0 mg/dL [facility] Aspartate Amino Transferase 13 5 - 37 U/L [facility] Alanine Aminotransferase 14 0 - 40 U/L [facility] Total Protein 7.2 6.5 - 8.0 g/dL [facility] Albumin Level 4.0 3.5 - 5.0 g/dL [facility] Alkaline Phosphatase 59 39 - 117 U/L [facility] 11/10/2024 9:54 AM EST 11/10/2024 9:56 AM EST Generic External Data Provider LAB BLOOD ORDERAB LES Final Result Performing Organization Address [facility] Co de Phone Number [facility] [address] [place] [phone] * Gram stain (11/08/2024 12:00 AM EST) 11/08/2024 11/08/2024 Comment:Axilla Narrative [facility] - 11/10/2024 7:36 AM EST Gram stain results: No polys 2+ epithelial cells 2+ Gram-positive cocci Methicillin Res Staph Aureus Quant Org ID 2+ Methicillin Res Staph Aureus: Clindamycin <=0.25(S) Methicillin Res Staph Aureus: Erythromycin >=8(R) Methicillin Res Staph Aureus: Oxacillin >=4(R) Methicillin Res Staph Aureus: Penicillin-G >=0.5(R) Methicillin Res Staph Aureus: Tetracycline <=1(S) Methicillin Res Staph Aureus: Trimethoprim/Sulfamethoxazole <=10(S) Methicillin Res Staph Aureus: Vancomycin 1(S) Specimen Source: Axilla Alicia Dukes MD LAB MICROBIOLOGY - GENERAL ORDERABLES Final Result Performing Organization Address [facility] Co de Phone Number [facility] [address] [place] [phone] * PSA, Total With Reflex to PSA, Free (10/28/2024 10:41 AM EST) PSA,Total (Free>4and<10) 0.85 0.00 - 4.00 ng/mL [facility] Comment:A Free PSA was not p erformed: The percentage of Free PSA can be used to enhance the differentiation of prostate cancer from benign prostatic disease in subjects whose PSA levels are between 4.0 and 10.0 ng/mL. For subjects whose PSA levels are below 4.0 or above 10.0 ng/mL, the risk of prostate cancer is determined on the basis of the PSA alone. Therefore the % Free PSA is recommended only for those subjects whose PSA levels are between 4.0 and 10.0 ng/mL.PSA methodology: Hartman Alinity i ChemiluminescentMicroparticle Immunoassay (CMIA) 10/28/2024 10:4 1 AM EST 10/28/2024 11:38 AM EST Result Kym Salgado MD LAB BLOOD ORDERABLES Final Result [facility] [address] [place] [address] [phone] * (ABNORMAL) POCT HGB A1C (10/28/2024 10:13 AM EST) Hemoglobin A1C 6.5(A) 4.0 - 6.0 % QC Media Lot # [id number] Lot# Expiration Date , Blood 10/28/2024 10:1 3 AM EST Result Kym Salgado MD POINT OF CARE TEST EN TER/EDIT ORDERABLES Final Result * POCT Glucose (10/28/2024 10:13 AM EST) Glucose Blood, POC 148 60 - 200 mg/dL QC Media Lot # [id number] Lot# Expiration Date ,025 Blood Capillary blood specimen / Unknown 10/28/2024 10:13 AM EST Result Kym Salgado MD POINT OF CARE TEST EN TER/EDIT ORDERABLES Final Result * High Sensitivity Troponin I (10/24/2024 7:31 PM EST) Only the most recent of2 resultswithin the time period is included. TROPONIN I HIGH SENSITIVITY <2.7 <3.5 - 35.0 ng/L [facility] Comment:The Hartman high sens itivity Troponin-I results should beused in conjunction with other diagnostic information suchas ECG, clinical observations and information, and patientsymptoms to aid in the diagnosis of RI. 10/24/2024 7:31 PM EST 10/24/2024 7:46 PM EST Generic External Data Provider LAB BLOOD ORDERAB LES Final Result Performing Organization Address [facility] Co de Phone Number [facility] [address] [place] [phone] * Partial Thromboplastin Time, Activated (APTT) (10/24/2024 7:31 PM EST) Only the most recent of2 resultswithin the time period is included. Partial Thromboplastin Time 31.4 26.0 - 36.8 SEC [facility] Comment:For information rega rding the monitoring of direct thrombininhibitors, please refer to Pharmacy. 10/24/2024 7:31 PM EST 10/24/2024 7:46 PM EST Generic External Data Provider LAB BLOOD ORDERAB LES Final Result Performing Organization Address [facility] Co de Phone Number [facility] [address] [place] [phone] * Prothrombin Time-INR (10/24/2024 7:31 PM EST) Only the most recent of2 resultswithin the time period is included. Prothrombin Time 11.0 10.9 - 12.4 SEC [facility] INTERNATIONAL NORM RATIO 0.9 0.9 - 1.1 [facility] Comment:INTERNATIONAL NORMAL IZED RATIO (INR) REFERENCE RANGES Reference RangeFor patients not on anticoagulant therapy: 0.9 - 1.1INR ranges for oral anticoagulanttherapy:For prevention and treatment of venous thrombosis and pulmonary embolism: 2.0 - 3.0For acute myocardial infarction with aspirin therapy: 2.0 - 3.0For acute myocardial infarction without aspirin therapy: 3.0 - 4.0For patients with mechanical prosthetic heart valves: 2.5 - 3.5 10/24/2024 7:31 PM EST 10/24/2024 7:46 PM EST Generic External Data Provider LAB BLOOD ORDERAB LES Final Result Performing Organization Address [facility] de Phone Number [facility] [address] [place] [address] [phone] * Lipase (10/24/2024 7:31 PM EST) Only the most recent of2 resultswithin the time period is included. Lipase 48 8 - 78 U/L [facility] 10/24/2024 7:31 PM EST 10/24/2024 7:46 PM EST Generic External Data Provider LAB BLOOD ORDERAB LES Final Result Performing Organization Address [facility] de Phone Number [facility] [address] [place] [address] [phone] * CT Abdomen Pelvis w/o Contrast (10/23/2024 9:19 PM EST) Anatomical Region Laterality Modality Body, Pelvis, Abdomen Computed T omography 10/23/2024 9:19 PM EST Narrative 10/23/2024 9:21 PM EST ? [facility] ?[address] ?[place] [address] ? CT Scan Report ? Signed ? Patient: Knight,Mikal ?MR#: [id number] ?? [id number] ? : 1965 ?Acct:[id number] ? Age/Sex: 58 / M ?ADM Date: 01/05/25 ? Loc: HO.ED ? Attending Dr: ? Ordering Physician: Hayes Eaton ?? Date of Service: 10/23/24 ?? Procedure(s): CT abdomen pelvis wo IV con ?? Accession Number(s): [id number] ? cc: Hayes Eaton; Emiliana Slaughter MD ? Report Number: ?? [id number]: Total DLP = ??462.00 mGy-cm ? CLINICAL HISTORY: epigastric pain ? CT abdomen and pelvis without contrast ? Comparison: CT/REG/SR - CT ABDOMEN PELVIS W IV CON - 10/25/23 00:27 EST ?? CT/REG/SR - CT ABDOMEN PELVIS WO IV CON - 10/22/23 22:35 EST ? Findings: ?? The lung bases are clear. ? Evaluation of the parenchymal organs is limited by the lack of intravenous ?? contrast, however, the liver, gallbladder, spleen, pancreas, kidneys and ?? adrenal glands are normal in appearance. ?? No bowel obstruction, pneumoperitoneum, or pneumatosis. Interval note of a ?? 1.5 cm duodenal diverticulum. ? Pelvic contents unremarkable. Appendix is normal. ?? Small fat containing umbilical hernia. The bones are intact. ? IMPRESSION: ?? No acute findings. ? This document has been electronically signed by: Franki Alejandro MD on ?? 10/23/2024 21:19:10 ? Dictated By: ?Franki Alejandro MD ? Signed By: ?<Electronically signed by Franki Alejandro MD in OV> ? 10/23/242119 ? DD/ 18 ? TD/TT: 10/23/242118 ? Printing Machine Mechanic: ? Procedure Note Regino, Image - 10/23/[address] [address] [address] Scan Report Signed Patient: Mikal KnightMR#: [id number] : 1965Acct:[id number] Age/Sex: 58 / MADM Date: 10/23/24 Loc: HO.ED Attending Dr: Ordering Physician: Hayes Eaton Date of Service: 10/23/24 Procedure(s): CT abdomen pelvis wo IV con Accession Number(s): [id number] cc: Hayes Eaton; Emiliana Slaughter MD Report Number: [id number]: Total DLP = 462.00 mGy-cm CLINICAL HISTORY: epigastric pain CT abdomen and pelvis without contrast Comparison: CT/REG/SR - CT ABDOMEN PELVIS W IV CON - 10/25/23 00:[address]/REG/SR - CT ABDOMEN PELVIS WO IV CON - 10/22/23 22:35 EST Findings: The lung bases are clear. Evaluation of the parenchymal organs is limited by the lack of intravenous contrast, however, the liver, gallbladder, spleen, pancreas, kidneys and adrenal glands are normal in appearance. No bowel obstruction, pneumoperitoneum, or pneumatosis. Interval note of a 1.5 cm duodenal diverticulum. Pelvic contents unremarkable. Appendix is normal. Small fat containing umbilical hernia. The bones are intact. IMPRESSION: No acute findings. This document has been electronically signed by: Franki Alejandro MD on 10/23/2024 21:19:10 Dictated By: Franki Alejandro MD Signed By: <Electronically signed by Franki Alejandro MD in OV> 10/23/242119 DD/ 18 TD/TT: 10/23/242118 Printing Machine Mechanic: [facility] External Provider IMG CT PROCEDURES Edited Result - Final * (ABNORMAL) Urinalysis, Complete, with Reflex to Culture (10/23/2024 9:13 PM EST) Color Urine Yellow [facility] Appearance Urine Clear [facility] PH 7.0 5.0 - 9.0 [facility] Glucose Urine UA 500(A) Negative mg/dL [facility] Urine Blood Negative Negative [facility] Specific [place] - Urine >=1.030(H) 1.005 - 1.025 [facility] Urine Protein 30 (1+)(A) Neg-Trace mg/dL [facility] Urine Ketones Trace Negative mg/dL [facility] Nitrite Urine Negative Negative [facility] Leukocyte Esterase Urine Negative Negative [facility] RBC Urine 3-5(A) 0 - 2 /HPF [facility] Urine WBC 0-5 0 - 5 /HPF [facility] Urine Squamous Epithelial Cell 0-2 0 - 2 /HPF [facility] Urine Bacteria None Seen None Seen [facility] Hyaline Casts, Urine 0-2 0 - 2 /LPF [facility] 10/23/2024 9:13 PM EST 10/23/2024 9:42 PM EST Narrative [facility] - 10/23/2024 10:39 PM EST [id number], Clean Catch Generic External Data Provider LAB URINE ORDERAB LES Final Result Performing Organization Address [facility] Co de Phone Number [facility] [address] [place] [phone] * SARS-CoV-2 RNA, Influenza A/B, and RSV RNA, Ql NAAT (10/23/2024 8:57 PM EST) Influenza A PCR NEGATIVE Negative [facility] Influenza B PCR NEGATIVE Negative [facility] Resp Syncy Virus RNA Qual PCR NEGATIVE Negative [facility] SARS COV2 PCR NEGATIVE Negative [facility] Comment:All test results mus t be correlated with clinical findings.Negative results do not preclude SARS-CoV2, influenza Avirus, influenza B virus and/or RSV infectionand should not be used as the sole basis for treatment orother patient management decisions. Negative results must becombined with clinical observations, patient history, andepidemiological information.This test has not been evaluated for monitoring treatment ofinfection.This test has been authorized by the FDA under an EmergencyUse Authorization (EUA) for use by authorized laboratories.Testing performed on the [employer] GeneXpert utilizingreal-time RT-PCR.All SARS CoV2 and positive influenza A/B results arereported to [facility]. 10/23/2024 8:57 PM EST 10/23/2024 9:00 PM EST us Generic External Data Provider LAB MICROBIOLOGY - GENERAL ORDERABLES Final Result Performing Organization Address [facility]/ZIP Co de Phone Number [facility] [address] [place] [phone] * Albumin, Random Urine W/Creatinine (07/29/2024 9:39 AM EDT) Creatinine, Urine 179.93 mg/dL [facility] Microalbumin Urine 35.0 mg/L [facility] Microalbum Creatinine Ratio Ur 19.4 <30 ug/mg cr [facility] Comment:Albumin/Creatinine R atio Reference Ranges: Normal: < 30 ug/mg creatinine Microalbuminuria: 30 - 300 ug/mg creatinineClinical Albuminuria: > 300 ug/mg creatinine Urine (Urine, Random) 07/29/2024 9:39 AM EDT 07/29/2024 11:02 AM EDT Emiliana Salgado MD LAB URINE ORDERABLES Final Result [facility] [address] [place] [address] [phone] * (ABNORMAL) Lipid Panel, Standard (07/29/2024 9:39 AM EDT) Triglycerides 137 <150 mg/dL [facility] Comment:Desirable Triglyceri de: less than 150 mg/dLBorderline High Triglyceride 150-199 mg/dLHigh Triglyceride: 200-499 mg/dLVery High Triglyceride: greater than or equal to 5OO mg/dL Cholesterol 103 <200 mg/dL [facility] Comment:Desirable Cholestero l: less than 200 mg/dLBorderline High Cholesterol: 200-239 mg/dLHigh Cholesterol: greater than 239 mg/dL LDL Cholesterol Calculated 38 <100 mg/dL [facility] Comment:Desirable LDL: less than 100 mg/dLNear Optimal/Above Optimal LDL: 110- 129 mg/dLBorderline High LDL: 130-159 mg/dLHigh LDL: 160-189 mg/dLVery High LDL: greater than or equal to 190 mg/dL HDL Cholesterol 38(L) >40 mg/dL [facility] Comment:Desirable HDL: great er than 40 mg/dL Note: This HDL assay may give artificially low results in patients with liver disease. Blood Venous blood specimen / Unknown 07/29/2024 9:39 AM EDT 07/29/2024 11:17 AM EDT Emiliana Salgado MD LAB BLOOD ORDERABLES Final Result [facility] [address] [place] [address] [phone] * Cologuard?? colon cancer screening (11/25/2023 1:01 AM EST) Cologuard Result Negative Negative 12/09/19 5:28 PM EST [facility] (CLIA #:[id number]) Comment: NEGATIVE TEST RESULT. A negative Cologuard result indicates a low likelihood that a colorectal cancer (CRC) or advanced adenoma (adenomatous polyps with more advanced pre-malignant features) ??is present. The chance that a person with a negative Cologuard test has a colorectal cancer is less than 1 in 1500 (negative predictive value >99.9%) or has an ??advanced adenoma is less than ??5.3% (negative predictive value 94.7%). These data are based on a prospective cross-sectional study of 10,000 individuals at average risk for colorectal cancer who were screened with both Cologuard and colonoscopy. (Sharona Espinoza et al, N Engl J Med 2014;370(14):1286- 1297) The normal value (reference range) for this assay is negative. COLOGUARD RE-SCREENING RECOMMENDATION: Periodic colorectal cancer screening is an important part of preventive healthcare for asymptomatic individuals at average risk for colorectal cancer. ??Following a negative Cologuard result, the [employer] and U.S. Multi-Society Task Force screening guidelines recommend a Cologuard re-screening interval of 3 years. References: [employer] Guideline for Colorectal Cancer Screening: https://www.cancer.org/cancer/akedo-dkovjy-kxuhgz/bhmvwogkx-mebsbogys-kwofuzt/ac s-rec ommendations.html.; Richar MENENDEZ, Gely CR, Isaiah ChaseK, Colorectal Cancer Screening: Recommendations for Physicians and Patients from the U.S. Multi-Society Task Force on Colorectal Cancer Screening , Am J Gastroenterology 2017; 112:6629-3421. TEST DESCRIPTION: Composite algorithmic analysis of stool DNA-biomarkers with hemoglobin immunoassay. ?? Quantitative values of individual biomarkers are not reportable and are not associated with individual biomarker result reference ranges. Cologuard is intended for colorectal cancer screening of adults of either sex, 45 years or older, who are at average-risk for colorectal cancer (CRC). Cologuard has been approved for use by the U.S. FDA. The performance of Cologuard was established in a cross sectional study of average-risk adults aged 50-84. Cologuard performance in patients ages 45 to 49 years was estimated by sub-group analysis of near-age groups. Colonoscopies performed for a positive result may find as the most clinically significant lesion: colorectal cancer [4.0%], advanced adenoma (including sessile serrated polyps greater than or equal to 1cm diameter) [20%] or non- advanced adenoma [31%]; or no colorectal neoplasia [45%]. These estimates are derived from a prospective cross-sectional screening study of 10,000 individuals at average risk for colorectal cancer who were screened with both Cologuard and colonoscopy. (Sharona Grimes al, N Engl J Med 2014;370(14):5535-2520.) Cologuard may produce a false negative or false positive result (no colorectal cancer or precancerous polyp present at colonoscopy follow up). A negative Cologuard test result does not guarantee the absence of CRC or advanced adenoma (pre-cancer). The current Cologuard screening interval is every 3 years. ([place] [employer] and U.S. Multi-Society Task Force). Cologuard performance data in a 10,000 patient pivotal study using colonoscopy as the reference method can be accessed at the following location: www.Fitfu.com/results. Additional description of the Cologuard test process, warnings and precautions can be found at www.K[employer] P[employer] LtdogKKBOXrd.com. Stool specimen (specimen) 11/25/2023 1:01 AM EST 11/27/2023 1:25 PM EST Emiliana Salgado MD LAB MOLECULAR DIAGNOS TICS ORDERABLES Final Result [facility] (CLIA #:[id number]) [place] [address], * HIV 1/2 ANTIGEN/ANTIBODY,FOURTH GENERATION W/RFL (05/29/2022 9:57 AM EDT) HIV-1/2 ANTIGEN AND ANTIBODIES, 4TH GENERATION W/ REFLEX NON-REACT BOYD NON-REACT BOYD [facility] Comment: HIV-1 antigen and HIV-1/HIV-2 antibodies were not detected. There is no laboratory evidence of HIV infection. ?? PLEASE NOTE: This information has been disclosed to you from records whose confidentiality may be protected by state law. ??If your state requires such protection, then the state law prohibits you from making any further disclosure of the information without the specific written consent of the person to whom it pertains, or as otherwise permitted by law. A general authorization for the release of medical or other information is NOT sufficient for this purpose. ? For additional information please refer to http://education.Avogy/faq/ZIB140 (This link is being provided for informational/ educational purposes only.) ? The performance of this assay has not been clinically validated in patients less than 2 years old. ?? 05/29/2022 9:57 AM EDT Moy Cervantes DAIRY BAR MANAGER LAB BLOOD ORDERABLES Final Result [facility] [address] * HEPATITIS C AB W/REFL TO HCV RNA, QN, PCR (08/20/2021 10:33 AM EDT) HEPATITIS C ANTIBODY NON-REACT BOYD NON-REACT BOYD [facility] INDEX 0.07 <1.00 [facility] Comment: ?? HCV antibody was non-reactive. There is no laboratory ?? evidence of HCV infection. ?? In most cases, no further action is required. However, if recent HCV exposure is suspected, a test for HCV RNA (test code 46566) is suggested. ?? For additional information please refer to http://education.M[employer].MobilePaks/faq/LKI99c6 (This link is being provided for informational/ educational purposes only.) ?? 08/20/2021 10:3 3 AM EDT us Jerman Morrell MD HISTORICAL/NON ORDERABLE LABS Fi nal Result [facility] [address] from Last 3 Months or Most Recently Relevant to Health Maintenance Insurance [employer] - [employer] DENTAL Care Teams Development Spec Relationship Specialty Start Date End Date Emiliana Slaughter MD [address] [place] [phone] PCP - General Internal Medicine 12/16/22
--- OUTSIDE RECORDS SUMMARY | 2025-01-19 07:44 | XMS_ITS | Encounter Summary ---
Author Organization [employer] Address [address] [place] [address] Care Team Providers Care Client Support Representative Name Role Phone Emiliana Slaughter MD Primary Care Provide r Reason for Visit * Reason Comments Med Refill Encounter Details Date Type Department Care Team ([facility] st Contact Info) Description 08/26/2023 Refill [facility] [address] [place] [address] Emiliana Slaughter MD [address] [place] [address] Alcohol-related disorder (CMS/HCC) Social History Tobacco Use Types Packs/Day Years Used Date Smoking Tobacco: Every Day Cigarettes Passive Smoke Exposure: Current Smokeless Tobacco: Never Alcohol Use Standard Drinks/Week Comments Yes 0 (1 standard drink = 0.6 oz pur e alcohol) socially Housing Stability Answer Date Recorded What is [...] Answer Date Recorded Patient Health Questionnaire-2 Score 3 11/19/2022 Sex and Gender Information Value Date Recorded Sex Assigned at Male 08/18/2022 10:16 AM EDT Legal Sex Male 10:16 AM EDT Gender Identity Male 08/18/2022 10:16 AM EDT Sexual Orientation Straight 08/18/2022 10 :16 AM EDT documented as of this encounter Plan of Treatment Upcoming Encounters Date Type Department Care Team (Late st Contact Info) Description 02/09/2025 9:00 AM EDT Office Visit [facility] [address] [place], [place] [phone] Emiliana Slaughter MD [address] [place] [address] documented as of this encounter Visit Diagnoses Diagnosis Alcohol-related disorder (CMS/HCC) Unspecified alcohol-induced mental disorders documented in this encounter Care Teams Client Support Representative Relationship Specialty Start Date End Date Emiliana Slaughter MD [address] [place] [address] [phone] PCP - General Internal Medicine 12/16/22 documented as of this encounter
--- OUTSIDE RECORDS SUMMARY | 2025-01-19 07:44 | XMS_ITS | Encounter Summary ---
Author Organization [employer] Address [address] [facility] [address] [facility] [address] [place] [address] Care Team Providers Care Farm Laborer Name Role Phone Emiliana Slaughter MD Primary Care Provide r Reason for Visit * Reason Comments Med Refill Encounter Details Date Type Department Care Team ([facility] st Contact Info) Description 11/21/2024 Refill [facility] MEDICINE [address] [place] [address] Emiliana Slaughter MD [address] [place] [address] Social History Tobacco Use Types Packs/Day Years [...] Description 02/09/2025 9:00 AM EDT Office Visit [facility] MEDICINE [address] [place] [address] Emiliana Slaughter MD [address] [place] [address] documented as of this encounter Visit Diagnoses Not on filedocumented in this encounter Additional Health Concerns Assessment Noted Time PHQ-9 Depression Total Score: 0 01/27/20 9:06 AM EDT documented as of this encounter Care Teams Farm Laborer Relationship Specialty Start Date End Date Emiliana Slaughter MD [address] [place] [address] PCP - General Internal Medicine 12/16/22 documented as of this encounter
--- OUTSIDE RECORDS SUMMARY | 2025-01-19 07:44 | XMS_ITS | Encounter Summary ---
Author Organization [employer] [facility] Address [address] [place] [address] 7t [place] [address] Care Team Providers Care Distillation Operator Helper Name Role Phone Smiley Pena MD Primary Care Provider Elsa Leroy Primary Care Provider Emiliana Carter MD Primary Care Provide r Encounter Details Date Type Department Care Team (Latest Contact Info) Description 11/24/2018 Abstract [facility] CONVERSIONS Dental, Provider, DDS Social History Tobacco Use Types Packs/Day Years Used Date Smoking Tobacco: Never Assessed Sex and Gender Information Value Date Recorded Sex Assigned at Male 08/18/2022 10:16 AM EDT Legal Sex Male 10:16 AM EDT Gender Identity Male 08/18/2022 10:16 AM EDT Sexual Orientation Straight 08/18/2022 10 :16 AM EDT documented as of this encounter Plan of Treatment Upcoming Encounters Date Type Department Care Team (Late st Contact Info) Description 02/09/2025 9:00 AM EDT Office Visit [facility] MEDICINE [address] [place] [address] Emiliana Slaughter MD [address] [place] [address] documented as of this encounter Visit Diagnoses Not on filedocumented in this encounter Care Teams Distillation Operator Helper Relationship Specialty Start Date End Date Smiley Pena MD PCP - General Family Medicine 09/01/19 11/13/22 Elsa [place] FNP PCP - General Family Medicine 11/14/22 12/15/22 Emiliana Slaughter MD [address] [place] [address] PCP - General Internal Medicine 12/16/22 documented as of this encounter
--- OUTSIDE RECORDS SUMMARY | 2025-01-19 07:44 | XMS_ITS | Encounter Summary ---
Author Organization [employer] Address [address] [facility] [facility] [address] 7[address] [place] [address] Care Team Providers Care Computer Numerical Control Machinist Name Role Phone Emiliana Slaughter MD Primary Care Provide r Reason for Visit * Reason Comments Med Refill Encounter Details Date Type Department Care Team ([facility] st Contact Info) Description 05/06/2024 Refill [facility] MEDICINE [address] [place] [address] Emiliana Slaughter MD [address] [place] [address] Primary hypertension Social History Tobacco Use Types Packs/Day Years [...] Recorded Patient Health Questionnaire-2 Score 0 01/27/2024 Sex and Gender Information Value Date Recorded Sex Assigned at Male 08/18/2022 10:16 AM EDT Legal Sex Male 10:16 AM EDT Gender Identity Male 08/18/2022 10:16 AM EDT Sexual Orientation Straight 08/18/2022 10 :16 AM EDT documented as of this encounter Plan of Treatment Upcoming Encounters Date Type Department Care Team (Late st Contact Info) Description 02/09/2025 9:00 AM EDT Office Visit [facility] MEDICINE [address] [place] [address] Emiliana Slaughter MD [address] [place] [address] documented as of this encounter Visit Diagnoses Diagnosis Primary hypertension Unspecified essential hypertension documented in this encounter Additional Health Concerns Assessment Noted Time PHQ-9 Depression Total Score: 0 01/27/20 24 9:06 AM EDT documented as of this encounter Care Teams Computer Numerical Control Machinist Relationship Specialty Start Date End Date Emiliana Slaughter MD [address] [place] [phone] PCP - General Internal Medicine 12/16/22 documented as of this encounter
--- NOTE | 2025-01-19 07:58 | A.OFFVIS_ITS ---
Intake Visit Reasons: Difficulty with urination Intake Note: Patient is present for difficulty with urination Urology Medication:none Antibiotic Allergy:NONE Blood Thinner:NONE Touring Production Manager Required: No Allergies No Known Allergies [No Known Allergies*] Allergy (Verified 01/19/25 08:16) Medication List - Last Reconciled 01/19/25 by Kelly Flores RN acamprosate 666 mg PO TID atorvastatin 40 mg PO DAILY cholecalciferol (vitamin D3) 25 mcg PO QAM clotrimazole-betamethasone 1-0.05 % 1 appl topical BID lisinopril 2.5 mg PO DAILY metformin 1,000 mg PO BID multivitamin 1 tab PO QAM omeprazole 40 mg PO DAILY ondansetron 4 mg PO Q8H PRN pioglitazone 15 mg PO DAILY sucralfate (Carafate) 10 mL PO BID 10 days sucralfate 1 g PO TID HPI Comments Details: 01/19/25--59-year-old male presenting with difficulty urinating, suspected due to prostatic issues. He reports having to sit down to urinate and an ongoing sensation of incomplete bladder emptying over the past few years. The patient's PSA levels in October were normal at 0.85 ng/mL. The patient has been diabetic for approximately 6 years, discussed diabetes may be comorbidity possible neurogenic bladder affecting bladder function. We scheduled the cystoscopy for further evaluation of his symptoms. Additionally, I prescribed rapaflo. Results - Labs: PSA level at 0.85 ng/mL in October 28, 2024 - Tests and Diagnostics: CAT scan 10/23/24--demonstrating normal kidney structure and no notable pelvic abnormalitie 07/14/24--Mikal is a pleasant 58-year-old male patient of Dr. Bond. He has a PMH of the type 2 diabetes, hypertension, pancreatitis, and hypercholesteremia. He initially presented to the office 12/31/23 for recurrent balanitis. He is status post circumcision on 02/02/2024. He required antibiotics due to an incisional infection. He is here to have the incision rechecked again. In evaluation the incision has healed well. He denies any further incisional pain. I have discussed importance of PSA screening. Follow- up in 9 months PSA prior. Review of chart: 06/16/24--Kamar is here has a postop visit status post circumcision performed on 02/02/2024. He is here for incision check. Examination- circumcision incision and glans, mildly irritated, with erythema. Plan lotrisone cream and ceftin. 12/31/23--Mikal is a pleasant 58-year-old male patient of Dr. Bond. He has a PMH of the type 2 diabetes, hypertension, pancreatitis, and hypercholesteremia. He presents to the office today for follow-up of his recurrent balanitis. In discussion with the patient today he reports compliance with clotrimazole-betamthasone. He reports noting improvement in balanitis however does want to move forward with circumcision as he feels balanitis is recurrent and how he needs to continually utilize cream. In review of patient's chart it appears A1c 01/09 6.3. He reports noting ongoing issues with urinary frequency and nocturia. In office urinalysis results reviewed with the patient today. PVR 52 mL. Discussed at length potential causes of urinary frequency and nocturia. He denies any signs or symptoms of sleep apnea. He otherwise denies urinay urgency, incontinence, hematuria, dysuria, foul smelling urine, changes to urinary stream, flank pain, fever, and or chills. He otherwise offers no other issues or concerns at this time. [facility] Medical History (Updated 01/19/25 @ 08:42 by Geovanna Resendiz MD) Infected cyst of skin Type 2 diabetes mellitus Hypertension Pancreatitis High cholesterol Diabetes Social History Patient Tobacco Use Status: Current everyday Tobacco user Review of Systems Const All systems reviewed & are unremarkable except as noted in HPI and below Reports no additional complaints Eyes Reports no additional complaints ENT Reports no additional complaints Card Reports no additional complaints Resp Reports no additional complaints GI Reports no additional complaints Reports as per HPI Musc Reports no additional complaints Skin/Breast Reports system reviewed and no additional complaints, except as documented Neuro Reports no additional complaints Psych Reports no additional complaints Endo Reports no additional complaints Sunny/Lymph Reports no additional complaints Aller/Immun Reports no additional complaints Office Procedures Post Void Residual Post Residual Void Post Void Residual (PVR): 26 [id number] Void Residual by ultrasound Results AMB Urinalysis, Automated UA Leukoctes 0 Sonja/uL Last Edit by Kelly Flores RN on 01/19/25 08:15 UA Nitrite Negative Last Edit by Kelly Flores RN on 01/19/25 08:15 UA Urobilinogen 1 mg/dL Last Edit by Kelly Flores RN on 01/19/25 08:15 UA Protein 15 mg/dL Last Edit by Kelly Flores RN on 01/19/25 08:15 UA pH 6 Last Edit by Kelly Flores RN on 01/19/25 08:15 UA Blood 0 Naman/uL Last Edit by Kelly Flores RN on 01/19/25 08:15 UA Specific [place] 1.02 Last Edit by Kelly Flores RN on 01/19/25 08: 15 UA Ketone Negative Last Edit by Kelly Flores RN on 01/19/25 08:15 UA Bilirubin 1 mg/dL Last Edit by Kelly Flores RN on 01/19/25 08:15 UA Glucose 0 mg/dL Last Edit by Kelly Flores RN on 01/19/25 08:15 Results Reviewed Results Reviewed: Laboratory Last Values Urine pH (Auto) 6 01/19/25 08:13 Specific [place] (Auto) 1.02 01/19/25 08:13 Urine Protein (Auto) 15 mg/dL 01/19/25 08:13 Glucose (UA)(Auto) 0 mg/dL 01/19/25 08:13 Urine Ketones (Auto) Negative 01/19/25 08:13 Urine Blood (Auto) 0 Naman/uL 01/19/25 08:13 Urine Nitrite (Auto) Negative 01/19/25 08:13 Urine Bilirubin (Auto) 1 mg/dL 01/19/25 08:13 Urine Urobilinogen (Auto) 1 mg/dL 01/19/25 08:13 Leukocyte Esterase (Auto) 0 Sonja/uL 01/19/25 08:13 Date of Service: 10/23/24 CT abdomen and pelvis without contrast Comparison: CT/REG/SR - CT ABDOMEN PELVIS W IV CON - 10/25/23 00:[address]/REG/SR - CT ABDOMEN PELVIS WO IV CON - 10/22/23 22:35 EST Findings: The lung bases are clear. Evaluation of the parenchymal organs is limited by the lack of intravenous contrast, however, the liver, gallbladder, spleen, pancreas, kidneys and adrenal glands are normal in appearance. No bowel obstruction, pneumoperitoneum, or pneumatosis. Interval note of a 1.5 cm duodenal diverticulum. Pelvic contents unremarkable. Appendix is normal. Small fat containing umbilical hernia. The bones are intact. IMPRESSION: No acute findings. Assessment & Plan Assessment & Plan (1) BPH (benign prostatic hyperplasia): Code(s): N40.0 - Benign prostatic hyperplasia without lower urinary tract symptoms Category: Medical (2) Screening PSA (prostate specific antigen): Code(s): Z12.5 - Encounter for screening for malignant neoplasm of prostate Category: Medical (3) Urinary hesitancy: Code(s): R39.11 - Hesitancy of micturition Category: Medical (4) Voiding dysfunction: Code(s): N39.8 - Other specified disorders of urinary system Category: Medical (5) Diabetes: Code(s): E11.9 - Type 2 diabetes mellitus without complications Category: Medical Plan Plan - Take Rapaflo 4 mg daily as prescribed and observe for changes in urinary symptoms - Schedule and attend the follow-up cystoscopy, which will be conducted with numbing medication to prevent discomfort - Monitor for side effects such as excessively frequent urination or any adverse reactions to the new medication Orders: Orders AMB Urinalysis Automated Today Z13.9 - Encounter for screening, unspecified AMB Post Void Residual by ultrasound Today N40.0 - Benign prostatic hyperplasia without lower urinary tract symptoms Medications: New silodosin (Rapaflo) must administer with a meal/food 4 mg PO DAILY 30 caps 3RF Patient Instructions: The patient had an opportunity to ask questions regarding treatment plan. The patient expressed understanding and agreement with the above treatment plan. The patient is aware they should contact our office by phone for worsening of their current condition or the appearance of new symptoms. Compliance is encouraged with any medications and followup testing that is ordered. It is a privilege to be allowed the opportunity to participate in the urologic care of your patient. If you have any questions or concerns regarding treatment for the above conditions please do not hesitate to contact me. The office telephone contact is [phone]. This note is constructed in part using voice recognition software. While every effort has been made to ensure accuracy international travel consultant errors may have been included. Yours sincerely, Geovanna Resendiz MD Scribe Plan - Not visible on output: Patient was informed and verbally consented to the use of an ambient scribe for clinic note documentation during this visit. Coding Level of Care Code Est Pt Level 4 (77526) Diagnoses BPH (benign prostatic hyperplasia) N40.0 Screening PSA (prostate specific antigen) Z12.5 Urinary hesitancy R39.11 Voiding dysfunction N39.8 Diabetes E11.9 CPT Codes Post Residual Void - PVR CPT Code: 03639-Hdvr Void Residual by ultrasound ([id number])
== END 2025-01-19 08:42 | disposition home or self-care (01) ==
LOC: HO.HUSH 07:42
PROVIDERS: PCP Internal Medicine; Visit Provider Urology
DX: N40.0 Benign prostatic hyperplasia without lower urinary tract symptoms (principal); Z12.5 Encounter for screening for malignant neoplasm of prostate; R39.11 Hesitancy of micturition; N39.8 Other specified disorders of urinary system; E11.9 Type 2 diabetes mellitus without complications; Z13.9 Encounter for screening, unspecified
CPT/HCPCS: 99214

== ENCOUNTER → 2025-01-19 07:42 | Outpatient (BNVA) | payer OTHER, SELFPAY | PROVIDERS: PCP Internal Medicine; Visit Provider Urology | DX: N40.0 Benign prostatic hyperplasia without lower urinary tract symptoms (principal); Z12.5 Encounter for screening for malignant neoplasm of prostate; R39.11 Hesitancy of micturition; N39.8 Other specified disorders of urinary system; E11.9 Type 2 diabetes mellitus without complications | CPT/HCPCS: 51798; 81003 ==

== ENCOUNTER 2025-02-09 09:45 | Outpatient (REF) | payer OTHER, SELFPAY ==
--- OUTSIDE RECORDS SUMMARY | 2025-02-09 10:51 | XMS_ITS | Encounter Summary ---
Author Organization [employer] Address [address] [place] [address] Care Team Providers Care Radial Drill Press Operator Name Role Phone Emiliana Slaughter MD Primary Care Provide r Encounter Details Date Type Department Care Team ([facility] st Contact Info) Description 02/09/2025 9:00 AM EDT Office Visit [facility] MEDICINE [address] [place], [place] [phone] Emiliana Slaughter MD [address] [place], [place] [phone] Folliculitis (Primary Dx); Type 2 diabetes mellitus with hyperglycemia, without long-term current use of insulin ([facility]/HCC); Primary hypertension; Chronic fatigue Social History Tobacco Use Types Packs/Day Years [...] AM EDT documented as of this encounter Last Filed Vital Signs Vital Sign Reading Time Taken Comments Blood Pressure 134/91 02/09/2025 9:06 AM EDT Pulse 87 02/09/2025 9:06 AM EDT Temperature 37.1 ??C (98.7 ??F) 02/09/2025 9:06 AM ED T Respiratory Rate 18 02/09/2025 9:06 AM EDT Oxygen Saturation - - Inhaled Oxygen Concentration - - Weight 76.6 kg (168 lb 12.8 oz) 02/09/2025 9:06 AM EDT Height 167.6 cm (5' 6 ) 02/09/2025 9:06 AM EDT Body Mass Index 27.25 02/09/2025 9:06 AM EDT documented in this encounter Plan of Treatment Upcoming Encounters Date Type Department Care Team (Late st Contact Info) Description 05/11/2025 9:15 AM EDT Office Visit [facility] MEDICINE [address] [place], [place] [phone] Emiliana Slaughter MD [address] [place] [address] Scheduled Orders Name Type Priority Associated Diagnoses Orde r Schedule CBC auto differential Lab Routine Chronic fatigue Expected: 02/09/2025 (Approximate), Expires: 02/09/2026 Comprehensive Metabolic Panel Lab Routine Chronic fatigue Expected: 02/09/2025 (Approximate), Expires: 02/09/2026 Hepatitis Panel, General Lab Routine Chronic fatigue Expected: 02/09/2025, Expires: 02/09/2026 TSH with Reflex to Free T4 Lab Routine Chronic fatigue Expected: 02/09/2025 (Approximate), Expires: 02/09/2026 HIV-1/2 Antigen and Antibodies, Fourth Generation, with Reflexes Lab Routine Chronic fatigue Expected: 02/09/2025 (Approximate), Expires: 02/09/2026 JIA Screen,IFA, with Reflex to Titer and Pattern Lab Routine Chronic fatigue Expected: 02/09/2025 (Approximate), Expires: 02/09/2026 Vitamin B12/Folate, Serum Panel Lab Routine Chronic fatigue Expected: 02/09/2025, Expires: 02/09/2026 Vitamin D, 25-Hydroxy, Total, Immunoassay Lab Routine Chronic fatigue Expected: 02/09/2025 (Approximate), Expires: 02/09/2026 documented as of this encounter Procedures Procedure Name Priority Date/Time Associated Diagnosis Comments POCT GLYCATED HEMOGLOBIN, TOTAL Routine 02/09/2025 9:49 AM EDT Type 2 diabetes mellitus with hyperglycemia, without long-term current use of insulin ([facility]) POCT GLUCOSE Routine 02/09/2025 9:07 AM EDT Type 2 diabetes mellitus with hyperglycemia, without long-term current use of insulin ([facility]) documented in this encounter Results * (ABNORMAL) POCT HGB A1C (02/09/2025 9:49 AM EDT) [facility] Hemoglobin A1C 8.1(A) 4.0 - 6.0 % Comment:[employer] Lot # [id number] Lot# Expiration Date 110, Blood 02/09/2025 9:49 AM EDT Emiliana Salgado MD POINT OF CARE TEST EN TER/EDIT ORDERABLES Final Result * (ABNORMAL) POCT Glucose (02/09/2025 9:07 AM EDT) Glucose Blood, POC 243(A) 60 - 200 mg/dL Comment:[employer] Lot # [id number] Lot# Expiration Date Blood Capillary blood specimen / Unknown 02/09/2025 9:07 AM EDT Emiliana Salgado MD POINT OF CARE TEST EN TER/EDIT ORDERABLES Final Result documented in this encounter Visit Diagnoses Diagnosis Folliculitis- Primary Other specified disease of hair and hair follicles Type 2 diabetes mellitus with hyperglycemia, without long-term current use of insulin ([facility]) Primary hypertension Unspecified essential hypertension Chronic fatigue Other malaise and fatigue documented in this encounter Additional Health Concerns Assessment Noted Time PHQ-9 Depression Total Score: 0 01/27/20 24 9:06 AM EDT documented as of this encounter Care Teams Radial Drill Press Operator Relationship Specialty Start Date End Date Emiliana Slaughter MD [address] [place] [phone] PCP - General Internal Medicine 12/16/22 documented as of this encounter
--- OUTSIDE RECORDS SUMMARY | 2025-02-09 10:51 | XMS_ITS | Encounter Summary ---
Author Organization [employer] Address [address] [address] [place] [address] Care Team Providers Care Salesperson Pets And Pet Supplies Name Role Phone Emiliana Slaughter MD Primary Care Provide r Reason for Visit * Reason Comments Med Refill Encounter Details Date Type Department Care Team ([facility] st Contact Info) Description 11/21/2024 Refill [facility] MEDICINE [address] [place] [address] Emiliana Slaughter MD [address] [place], [place] [phone] Social History Tobacco Use Types Packs/Day Years [...] Description 05/11/2025 9:15 AM EDT Office Visit [facility] MEDICINE [address] [place] [address] Emiliana Slaughter MD [address] [place] [address] documented as of this encounter Visit Diagnoses Not on filedocumented in this encounter Additional Health Concerns Assessment Noted Time PHQ-9 Depression Total Score: 0 01/27/20 24 9:06 AM EDT documented as of this encounter Care Teams Salesperson Pets And Pet Supplies Relationship Specialty Start Date End Date Emiliana Slaughter MD [address] [place] [address] PCP - General Internal Medicine 12/16/22 documented as of this encounter
--- OUTSIDE RECORDS SUMMARY | 2025-02-09 10:51 | XMS_ITS | Encounter Summary ---
Author Organization [employer] [facility] Address [address] [facility] [address] [place] [address] Care Team Providers Care Tassel Maker Name Role Phone Smiley Pena MD Primary Care Provider Elsa Leroy Primary Care Provider Emiliana Carter MD Primary Care Provide r Encounter Details Date Type Department Care Team (Latest Contact Info) Description 11/24/[address] [facility] CONVERSIONS Dental, Provider, DDS Social History [...] Description 05/11/2025 9:15 AM EDT Office Visit [facility] MEDICINE [address] [place] [address] Emiliana Slaughter MD [address] [place] [address] documented as of this encounter Visit Diagnoses Not on filedocumented in this encounter Care Teams Tassel Maker Relationship Specialty Start Date End Date Smiley Pena MD PCP - General Family Medicine 09/01/19 11/13/22 Elsa [place] FNP PCP - General Family Medicine 11/14/22 12/15/22 Emiliana Slaughter MD [address] [place] [address] PCP - General Internal Medicine 12/16/22 documented as of this encounter
--- OUTSIDE RECORDS SUMMARY | 2025-02-09 10:51 | XMS_ITS | Encounter Summary ---
Author Organization [employer] Address [address] [facility] [address] [place] [address] Care Team Providers Care Executive Sales Manager Name Role Phone Emiliana Slaughter MD Primary Care Provide r Reason for Visit * Reason Comments Med Refill Encounter Details Date Type Department Care Team ([facility] st Contact Info) Description 05/06/2024 Refill [facility] MEDICINE [address] [place], [place] [phone] Emiliana Slaughter MD [address] [place], [place] [phone] Primary hypertension Social History Tobacco Use Types [...] Description 05/11/2025 9:15 AM EDT Office Visit [facility] MEDICINE [address] [place] [address] Emiliana Slaughter MD [address] [place] [address] documented as of this encounter Visit Diagnoses Diagnosis Primary hypertension Unspecified essential hypertension documented in this encounter Additional Health Concerns Assessment Noted Time PHQ-9 Depression Total Score: 0 01/27/20 24 9:06 AM EDT documented as of this encounter Care Teams Executive Sales Manager Relationship Specialty Start Date End Date Emiliana Slaughter MD [address] [place] [id number] PCP - General Internal Medicine 12/16/22 documented as of this encounter
--- OUTSIDE RECORDS SUMMARY | 2025-02-09 10:51 | XMS_ITS | Encounter Summary ---
Author Organization [employer] Address [address] [facility] 7t [place] [address] Care Team Providers Care Corral Boss Name Role Phone Emiliana Slaughter MD Primary Care Provide r Reason for Visit * Reason Onset Date Comments Chart Prep 02/08/2025 Encounter Details Date Type Department Care Team ([facility] Contact Info) Description 02/08/2025 Telephone [facility] MEDICINE [address] [place], [place] [phone] Emiliana Slaughter MD [address] [place], [place] [phone] Chart Prep Social History Tobacco Use Types Packs/Day Years [...] AM EDT documented as of this encounter Miscellaneous Notes * Telephone Encounter - Judith Jasso [place] - 02/08/2025 1:49 PM EDT Chart Prep Labs: done Images: done Referrals: Ask patient if he went to and Urology Vaccines due: yes Screenings: foot exam Overdue care gaps: Glucose, KEE-7, Disability screen, and Tobacco documented in this encounter Plan of Treatment Upcoming Encounters Date Type Department Care Team (Late st Contact Info) Description 05/11/2025 9:15 AM EDT Office Visit [facility] MEDICINE [address] [place] [address] Emiliana Slaughter MD [address] [place] [address] documented as of this encounter Visit Diagnoses Not on filedocumented in this encounter Additional Health Concerns Assessment Noted Time PHQ-9 Depression Total Score: 0 01/27/20 9:06 AM EDT documented as of this encounter Care Teams Corral Boss Relationship Specialty Start Date End Date Emiliana Slaughter MD [address] [place] [id number] PCP - General Internal Medicine 12/16/22 documented as of this encounter
--- OUTSIDE RECORDS SUMMARY | 2025-02-09 10:51 | XMS_ITS | Encounter Summary ---
Author Organization [employer] Address [address] [place] [address] Care Team Providers Care Payable Representative Name Role Phone Emiliana Slaughter MD Primary Care Provide r Reason for Visit * Reason Comments Med Refill Encounter Details Date Type Department Care Team ([facility] st Contact Info) Description 08/26/2023 Refill [facility] [address] [place] [address] Emiliana Slaughter MD [address] [place] [address] Alcohol-related disorder (CMS/HCC) Social History Tobacco Use [...] Description 05/11/2025 9:15 AM EDT Office Visit [facility] [address] [place] [address] Emiliana Slaughter MD [address] [place] [address] documented as of this encounter Visit Diagnoses Diagnosis Alcohol-related disorder (CMS/HCC) Unspecified alcohol-induced mental disorders documented in this encounter Care Teams Payable Representative Relationship Specialty Start Date End Date Emiliana Slaughter MD [address] [place] [address] [phone] PCP - General Internal Medicine 12/16/22 documented as of this encounter
--- OUTSIDE RECORDS SUMMARY | 2025-02-09 10:51 | XMS_ITS | Encounter Summary ---
Author Organization [employer] Address [address] [place] [address] Care Team Providers Care Claims Adjuster Crop Name Role Phone Emiliana Slaughter MD Primary Care Provide r Encounter Details Date Type Department Care Team (Latest Contact Info) Description 02/09/2025 Travel Social History Tobacco Use Types Packs/Day Years [...] Description 05/11/2025 9:15 AM EDT Office Visit [facility] [address] [place] [address] Emiliana Slaughter MD [address] [place] [address] documented as of this encounter Visit Diagnoses Not on filedocumented in this encounter Additional Health Concerns Assessment Noted Time PHQ-9 Depression Total Score: 0 01/27/20 24 9:06 AM EDT documented as of this encounter Care Teams Claims Adjuster Crop Relationship Specialty Start Date End Date Emiliana Slaughter MD [address] [place] [address] PCP - General Internal Medicine 12/16/22 documented as of this encounter
--- OUTSIDE RECORDS SUMMARY | 2025-02-09 10:51 | XMS_ITS | Clinical Summary ---
Author Organization [employer] Address [address] [facility] [address] [place] [address] Care Team Providers Care Party Plan Sales Host/Hostess Name Role Phone Emiliana Slaughter MD Primary [...] daily. 45 g 3 08/13/20 23 Active acamprosate (Campral) 333 MG EC tabletIndicatio ns:Alcohol-rela hina disorder (CMS/HCC) TAKE 2 TABLETS BY MOUTH THREE TIMES DAILY IN THE MORNING, EVENING AND BEDTIME 180 tablet 5 06/06/20 24 Active omeprazole (PriLOSEC) [address] capsule TAKE 1 CAPSULE BY MOUTH TWICE DAILY IN THE MORNING AND AT BEDTIME 180 capsule 1 08/03/20 24 Active cholecalciferol (Vitamin D-3) 25 MCG tablet TAKE 1 TABLET BY MOUTH EVERY MORNING 90 tablet 1 08/03/20 24 Active metFORMIN (Glucophage) 1000 MG tabletIndicatio ns:Type 2 diabetes mellitus with hyperglycemia, unspecified whether extermination inspector insulin use (CMS/HCC) TAKE 1 TABLET BY MOUTH TWICE DAILY IN THE MORNING AND IN THE EVENING WITH MEALS 180 tablet 1 10/11/20 24 Active Multiple Vitamin (Multivitamin) tabletIndicatio ns:Type 2 diabetes mellitus with hyperglycemia, unspecified whether extermination inspector insulin use (CMS/HCC) TAKE 1 TABLET BY MOUTH EVERY MORNING WITH FOOD 90 tablet 1 12/22/19 25 Active sildenafil (Viagra) 100 MG tablet TAKE 1 TABLET 1 HOUR BEFORE SEXUAL RELATIONS ONCE DAILY NEEDED. 20 tablet 3 12/23/19 25 Active cyanocobalamin (Vitamin B-12) 1000 MCG tablet TAKE 1 TABLET BY MOUTH EVERY MORNING 90 tablet 1 01/27/20 25 Active atorvastatin (Lipitor) 40 MG tablet TAKE 1 TABLET BY MOUTH EVERY MORNING 90 tablet 1 01/27/20 25 Active mupirocin (Bactroban) 2 % ointmentIndicat ions:Folliculit is Apply topically 3 times daily for 10 days. 22 g 1 02/10/20 25 025 Active chlorhexidine (Hibiclens) 2 % external liquidIndicatio ns:Folliculitis Apply topically if needed each day for wound care. 118 mL 02/10/20 25 Active lisinopril 2.5 MG tabletIndicatio ns:Primary hypertension Take 1 tablet (2.5 mg) by mouth in the morning. 30 tablet 02/10/20 25 Active pioglitazone (Actos) 30 MG tabletIndicatio ns:Type 2 diabetes mellitus with hyperglycemia, without long-term current use of insulin (CMS/HCC) Take 1 tablet (30 mg) by mouth Once per day. 30 tablet 02/10/20 25 026 Active lisinopril 2.5 MG tabletIndicatio ns:Primary hypertension TAKE 1 TABLET BY MOUTH EVERY MORNING 30 tablet 04/13/20 24 025 Discontinued(Re order (will not trigger notification to Pharmacy)) atorvastatin (Lipitor) 40 MG tablet TAKE 1 TABLET BY MOUTH EVERY MORNING 90 tablet 1 07/05/20 24 025 Discontinued cyanocobalamin (Vitamin B-12) 1000 MCG tablet TAKE 1 TABLET BY MOUTH EVERY MORNING 90 tablet 1 07/05/20 24 025 Discontinued pioglitazone (Actos) 15 MG tabletIndicatio ns:Type 2 diabetes mellitus with hyperglycemia, without long-term current use of insulin ([facility]) TAKE 1 TABLET BY MOUTH EVERY MORNING 30 tablet 11 08/30/20 24 025 Discontinued cefadroxil (Duricef) 500 MG capsule Take 1 capsule (500 mg) by mouth 2 times daily for 7 days. 14 capsule 01/04/20 25 025 doxycycline (Vibramycin) 100 MG capsule Take 1 capsule (100 mg) by mouth 2 times daily for 7 days. 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, I explain to [...] Encounters Date Type Department Care Team Description 02/09/2025 9:00 AM EDT Office Visit [facility] [address] [place] [address] Emiliana Slaughter MD Folliculitis (Primary Dx); Type 2 diabetes mellitus with hyperglycemia, without long-term current use of insulin ([facility]); Primary hypertension; Chronic fatigue 02/09/2025 Travel 02/08/2025 Telephone [facility] [address] [place] [address] Emiliana Slaughter MD Chart Prep 01/31/2025 Patient Outreach [facility] [address] [place] [address] Emiliana Slaughter MD Pre-visit Planning (SDOH screening completed on 10/20/2024) 01/26/2025 Refill [facility] [address] [place] [address] Emiliana Slaughter MD 01/03/2025 8:40 AM EDT Office Visit [facility] [address] [place] [address] Jerman Morrell MD Cutaneous abscess of right upper extremity (Primary Dx); Cutaneous abscess of abdominal wall; Primary hypertension 12/22/2024 Refill [facility] [address] [place] [address] Emiliana Slaughter MD 12/22/2024 Refill [facility] [address] [place] [address] Emiliana Slaughter MD 12/21/2024 Refill [facility] [address] [place] [address] Emiliana Slaughter MD Type 2 diabetes mellitus with hyperglycemia, unspecified whether extermination inspector insulin use ([facility]) 11/21/2024 Refill [facility] [address] [place] [address] Emiliana Slaughter MD from Last 3 Months Immunizations Name Administration [...] the past 12 months, has t he [employer], gas, oil or water company threatened to [...] 18 02/09/2025 9:06 AM EDT Oxygen Saturation 98% 01/03/2025 8:37 AM EDT Inhaled Oxygen Concentration - - Weight 76.6 kg (168 lb 12.8 oz) 025 9:06 AM EDT Height 167.6 cm (5' 6 ) 02/09/2025 9:06 AM EDT Body Mass Index 27.25 02/09/2025 9:06 AM EDT Plan of Treatment Upcoming Encounters Date Type Department Care Team (Late st Contact Info) Description 05/11/2025 9:15 AM EDT Office Visit [facility] [address] [place] [address] Emiliana Slaughter MD [address] [place] [address] Health Maintenance Due Date Last Done Comments CT Colonography 1967 Colonoscopy 1967 FIT 1967 FOBT 1967 Sigmoidoscopy 1967 Diabetes: Foot Exam 1977 Zoster Vaccines (1 of 2) 2017 Dental Oral Exam 04/09/2019 10/08/2018 Dental X-Ray: Bitewings 10/09/2019 10/08/2018, 05/07 Dental Prophylaxis 02/16/2020 08/16/2019, 11/24/2018 Dental X-Ray: Full Mouth 10/09/2021 10/08/2018 Depression Screening 01/26/2025 01/27/2024, 01/27/20 Diabetes: Hemoglobin A1C 05/11/2025 025, 10/28/2024, 07/28/2024, Additional history exists Eye Exam 05/28/2025 05/28/2023, 05/19, 05/28/2023, Additional history exists Diabetes: Urine Protein Screening 07/29/2025 07/29/2024, 03/10/2023, 05/12/2022, Additional history exists Lipid Panel 07/29/2025 07/29/2024, 02/17, 05/12/2022, Additional history exists SDOH Screening 10/20/2025 10/20/2024 Alcohol/Substance Use Screening 10/28/2025 10/28/2024 Tobacco Screening 02/09/2026 02/09/2025 DTaP/Tdap/Td Vaccines (2 - Td or Tdap) 08/20/2026 08/20/2016, 03/30/2007 Colorectal Cancer Screening 11/25/2026 FIT DNA/Cologuard 11/25/2026 11/25/2023 RSV Patients and Patients Aged 60 years or older (1 - 1-dose 75+ series) 2042 Hepatitis B Vaccines Completed 01/10/2019, 10/13/2001, 09/08/2001 Hepatitis C Screening Completed 08/20/2021 HIV Screening Completed 05/29/2022, 06/05/2022, 03/24/2022, Additional history exists Pneumococcal Vaccine: 50+ [...] without long-term current use of insulin (CMS/HCC) POCT GLUCOSE Routine 02/09/2025 9:07 AM EDT Type 2 diabetes mellitus with hyperglycemia, without long-term current use of insulin (CMS/HCC) ALBUMIN, RANDOM URINE W/CREATININE Routine 07/29/2024 9:39 [...] Relevant to Health Maintenance Results * (ABNORMAL) POCT HGB A1C (02/09/2025 9:49 AM EDT) Hemoglobin A1C 8.1(A) 4.0 - 6.0 % Comment:Random QC Media Lot # [id number] Lot# Expiration Date Blood 02/09/2025 9:49 AM EDT us Emiliana Salgado MD POINT OF CARE TEST EN TER/EDIT ORDERABLES Final Result * (ABNORMAL) POCT Glucose (02/09/2025 9:07 AM EDT) Glucose Blood, POC 243(A) 60 - 200 mg/dL Comment:random QC Media Lot # [id number] Lot# Expiration Date Blood Capillary blood specimen / Unknown 02/09/2025 9:07 AM EDT us Emiliana Salgado MD POINT OF CARE TEST EN TER/EDIT ORDERABLES Final Result * Albumin, Random Urine W/Creatinine (07/29/2024 9:39 AM EDT) Creatinine, Urine 179.93 mg/dL [facility] Microalbumin Urine 35.0 mg/L [facility] Microalbum Creatinine Ratio Ur 19.4 <30 ug/mg cr [facility] Comment:Albumin/Creatinine R at Reference Ranges: Normal: < 30 ug/mg creatinine Microalbuminuria: 30 - 300 ug/mg creatinineClinical Albuminuria: > 300 ug/mg creatinine Urine (Urine, Random) 07/29/2024 9:39 AM EDT 07/29/2024 11:02 AM EDT us Emiliana Salgado MD LAB URINE ORDERABLES Final Result Performing Organization Address [facility] Co de Phone Number [facility] [address] [place] [address] [phone] * (ABNORMAL) Lipid Panel, Standard (07/29/2024 9:39 AM EDT) Triglycerides 137 <150 mg/dL [facility] Comment:Desirable Triglyceri de: less than 150 mg/dLBorderline High Triglyceride 150-199 mg/dLHigh Triglyceride: 200-499 mg/dLVery High Triglyceride: greater than or equal to 5OO mg/dL Cholesterol 103 <200 mg/dL [facility] Comment:Desirable Cholestero l: less than 200 mg/dLBorderline High Cholesterol: 200-239 mg/dLHigh Cholesterol: greater than 239 mg/dL LDL Cholesterol Calculated 38 <100 mg/dL [facility] Comment:Desirable LDL: less than 100 mg/dLNear Optimal/Above Optimal LDL: 110- 129 mg/dLBorderline High LDL: 130-159 mg/dLHigh LDL: 160-189 mg/dLVery High LDL: greater than or equal to 190 mg/dL HDL Cholesterol 38(L) >40 mg/dL [facility] Comment:Desirable HDL: great er than 40 mg/dL Note: This HDL assay may give artificially low results in patients with liver disease. Blood Venous blood specimen / Unknown 07/29/2024 9:39 AM EDT 07/29/2024 11:17 AM EDT us Emiliana Salgado MD LAB BLOOD ORDERABLES Final Result Performing Organization Address City/[facility]/ZIP Co de Phone Number [facility] [address] [place] [address] [phone] * Cologuard?? colon cancer screening (11/25/2023 1:01 AM EST) Cologuard Result Negative Negative 12/09/19 24 5:28 PM [facility] (CLIA #:[id number]) Comment: NEGATIVE TEST RESULT. A negative Cologuard [...] (Sharona Grimes al, N Engl J Med 2014;370(14):1286- 1297) The normal value (reference range) for this assay is negative. COLOGUARD RE-SCREENING RECOMMENDATION: Periodic colorectal cancer screening is an important part of preventive healthcare for asymptomatic individuals at average risk for colorectal cancer. ??Following a negative Cologuard result, the [place] Cancer Society and U.S. Multi-Society Task Force screening guidelines recommend a Cologuard re-screening interval of 3 years. References: [place] Cancer Society Guideline for Colorectal Cancer Screening: https://www.cancer.org/cancer/qjpro-jzoqug-kqnibp/jolreyfbc-nlhvxkjbi-iufjsnl/ac s-rec ommendations.html.; Richar DK, Gely CR, Isaiah ChaseK, Colorectal Cancer Screening: Recommendations for Physicians and Patients from the U.S. Multi-Society Task Force on Colorectal Cancer Screening , Am J Gastroenterology 2017; 112:4989-8400. TEST DESCRIPTION: Composite algorithmic analysis of stool [...] (Sharona Grimes al, N Engl J Med 2014;370(14):8775-4354.) Cologuard may produce a false negative or false positive result (no colorectal cancer or precancerous polyp present at colonoscopy follow up). A negative Cologuard test result does not guarantee the absence of CRC or advanced adenoma (pre-cancer). The current Cologuard screening interval is every 3 years. ([place] Cancer Society and U.S. Multi-Society Task Force). Cologuard performance data in a 10,000 patient pivotal study using colonoscopy as the reference method can be accessed at the following location: www.Playdek.Localmint/results. Additional description of the Cologuard test process, warnings and precautions can be found at www.[employer]Turnaroundog[employer] Pharm[employer]rd.Localmint. Stool specimen (specimen) 11/25/2023 1:01 AM EST 11/27/2023 1:25 PM EST Emiliana Salgado MD LAB MOLECULAR DIAGNOS TICS ORDERABLES Final Result [facility] (CLIA #:[id number]) [place] [address], * HIV 1/2 ANTIGEN/ANTIBODY,FOURTH GENERATION W/RFL (05/29/2022 9:57 AM EDT) HIV-1/2 ANTIGEN AND ANTIBODIES, 4TH GENERATION W/ REFLEX NON-REACT BOYD NON-REACT BOYD [facility] Comment: HIV-1 antigen and HIV-1/HIV-2 [...] ? For additional information please refer to http://[employer].Specialized Pharmaceuticalss/faq/HUB015 (This link is being provided for informational/ educational purposes only.) ? The performance of this assay has not been clinically validated in patients less than 2 years old. ?? 05/29/2022 9:57 AM EDT [facility] [employer] LAB BLOOD ORDERABLES Final Result Performing Organization Address [facility] Phone Number [facility] [address] * HEPATITIS C AB W/REFL TO HCV RNA, QN, PCR (08/20/2021 10:33 AM EDT) HEPATITIS C ANTIBODY NON-REACT BOYD NON-REACT BOYD [facility] INDEX 0.07 <1.00 [facility] Comment: ?? HCV antibody was non-reactive. There is no laboratory ?? evidence of HCV infection. ?? In most cases, no further action is required. However, if recent HCV exposure is suspected, a test for HCV RNA (test code 93475) is suggested. ?? For additional information please refer to http://[employer].Specialized Pharmaceuticalss/faq/ENG98t4 (This link is being provided for informational/ educational purposes only.) ?? 08/20/2021 10:3 3 AM EDT us Jerman Morrell MD HISTORICAL/NON ORDERABLE LABS Fi nal Result Performing Organization Address [facility] Phone Number [facility] [address] [place] [address], [place] from Last 3 Months or Most Recently Relevant to Health Maintenance Insurance * Guarantor: [employer] Account Type Relation to Patient Date of Phone Billing Address Personal/Family Self [address] Care Teams Party Plan Sales Host/Hostess Relationship Specialty Start Date End Date Emiliana Slaughter MD [address] [place] [phone] PCP - General Internal Medicine 12/16/22
[2025-02-09 11:17] LABS: MANUAL DIFF FLAG NO
[2025-02-09 11:32] LABS: Basophils Percent Auto 0.4 % (0-2); Eosinophils Absolute Auto 0.1 X10*3/uL (0.0-0.4); Eosinophils Percent Auto 0.7 % (0-4); Hematocrit 40.1 % (42.0-52.0); Hemoglobin 13.4 g/dl (14.0-18.0); Imm Gran Abs Auto 0.06 X10*3/uL (0.00-0.03); Imm Gran Pct Auto 0.7 % (0.0-0.4); Lymphocytes Absolute Auto 1.8 X10*3/uL (1.2-4.9); Lymphocytes Percent Auto 22.7 % (20-40); Mean Corpuscular HGB Conc 33.4 g/dl (31.0-36.0); Mean Corpuscular Hemoglobin 33.1 pg (27.0-33.0); Mean Platelet Volume 10.3 fL (9.4-12.4); Monocytes Absolute Auto 0.7 X10*3/uL (0.1-1.2); Monocytes Percent Auto 8.3 % (2-11); Neutrophils Absolute Auto 5.4 x10*3/uL (2.0-8.3); Neutrophils Percent Auto 67.2 % (45-73); Platelet Count 218 X10*3/uL (160-400); Red Blood Count 4.05 X10*6/uL (4.60-5.80); Red Cell Distribution Width 12.4 % (11.0-16.0); White Blood Count 8.1 X10*3/uL (4.8-10.8)
[2025-02-09 12:02] LABS: Alanine Aminotransferase 21 U/L (0-40); Albumin Level 4.3 g/dL (3.5-5.0); Alkaline Phosphatase 67 U/L (39-117); Anion Gap 12 (12-20); Aspartate Amino Transferase 25 U/L (5-37); Bilirubin Total 0.8 mg/dL (0.0-1.0); Blood Urea Nitrogen 11 mg/dL (9-16); Calcium 9.6 mg/dL (8.4-10.2); Carbon Dioxide 28 mmol/L (22-29); Chloride 103 mmol/L (96-108); Estimated Glomerular Filt Rate > 60; Glucose Random 212 mg/dL (60-115); Potassium 4.5 mmol/L (3.3-5.1); Sodium 138 mmol/L (135-145); Total Protein 7.2 g/dL (6.5-8.0)
[2025-02-09 12:03] LABS: Vitamin D 25-OH Total 51.9 ng/mL (>30)
[2025-02-09 12:12] LABS: HBS Num1 322.24 mIU/mL (0-7.99); HBc Num1 0.16 S/CO (0.00-0.79); HBsAGNum1 0.38 S/CO (0.00-0.99); HIV AB/AG Nonreactive (Nonreactive); HIV Num 1 0.07 S/CO (0.00-0.99); Hepatitis A Antibody IgM 0.42 Index (0-0.79); Hepatitis B Core Antibody Nonreactive (Nonreactive); Hepatitis B Surface Antigen Negative (Negative); ~HepC Num1 0.12 S/CO (0.00-0.79); ~Hepatitis A Antibody IgM Nonreactive (Nonreactive); ~Hepatitis B Surface Antibody REACTIVE (Nonreactive); ~Hepatitis C Antibody Nonreactive (Nonreactive)
[2025-02-09 12:24] LABS: Folate 12.2 ng/mL (> or = 4.0); Vitamin B12 1403 pg/mL (200-900)
[2025-02-14 13:03] LABS: Anti Nuclear Antibody Screen NEGATIVE (NEGATIVE)
== END 2025-02-09 09:46 | disposition home or self-care (01) ==
LOC: HO.HHCL 09:45
PROVIDERS: Visit Provider Internal Medicine
DX: R53.82 Chronic fatigue, unspecified (principal)
CPT/HCPCS: 36415; 80053; 82306; 82607; 82746; 84443; 85025; 86038; 86704; 86706; 86709; 86803; 87340; 87389

== ENCOUNTER 2025-06-14 23:45 | Emergency (ER) | payer OTHER, SELFPAY ==
[2025-06-14 23:52] VITALS: BP 140/70; PULSE 88; RESP 20; TEMP 36; O2SAT 98; BMI 25.8
[2025-06-15 00:07] LABS: MANUAL DIFF FLAG NO
[2025-06-15 00:08] LABS: Hematocrit 39.7 % (42.0-52.0); Hemoglobin 13.8 g/dl (14.0-18.0); Imm Gran Abs Auto 0.05 X10*3/uL (0.00-0.03); Imm Gran Pct Auto 0.7 % (0.0-0.4); Lymphocytes Absolute Auto 2.7 X10*3/uL (1.2-4.9); Mean Corpuscular HGB Conc 34.8 g/dl (31.0-36.0); Mean Corpuscular Hemoglobin 34.1 pg (27.0-33.0); Mean Corpuscular Volume 98.0 fL (80.0-98.0); NRBC Abs Auto 0.000 X10*3/uL (0.0-0.012); NRBC Pct Auto 0.0 /100WBC (0.0-0.2); Platelet Count 192 X10*3/uL (160-400); Red Blood Count 4.05 X10*6/uL (4.60-5.80); White Blood Count 7.4 X10*3/uL (4.8-10.8)
[2025-06-15 00:13] LABS: Appearance Urine Clear; Glucose Urine UA Negative (Negative); PH 6.0 (5.0-9.0); Specific Gravity - Urine >= 1.030 (1.005-1.025); UMIC TRIGGER UACC YES
[2025-06-15 00:25] LABS: Alanine Aminotransferase 14 U/L (0-40); Albumin Level 4.6 g/dL (3.5-5.0); Alkaline Phosphatase 82 U/L (39-117); Anion Gap 11 (12-20); Aspartate Amino Transferase 17 U/L (5-37); Blood Urea Nitrogen 19 mg/dL (9-16); Calcium 9.1 mg/dL (8.4-10.2); Carbon Dioxide 25 mmol/L (22-29); Chloride 104 mmol/L (96-108); Creatinine Clr Calc Pharmacy 89.6; Estimated Glomerular Filt Rate > 60; Lipase 21 U/L (8-78); Potassium 3.9 mmol/L (3.3-5.1); Sodium 136 mmol/L (135-145); Total Protein 7.4 g/dL (6.5-8.0)
--- OUTSIDE RECORDS SUMMARY | 2025-06-15 01:33 | XMS_ITS | Encounter Summary ---
Author Organization [employer] Address [address] [facility] [address]t [place] [address] Care Team Providers Care Supervisor Fiberglass Boat Assembly Name Role Phone Emiliana Slaughter MD Primary Care Provide r Reason for Visit * Reason Comments Med Refill Encounter Details Date Type Department Care Team ([facility] st Contact Info) Description 05/06/2024 Refill [facility] [address] [place], [place] [phone] Emiliana Slaughter MD [address] [place], [place] [phone] Primary hypertension Social History Tobacco Use Types [...] as of this encounter Plan of Treatment Not on file documented as of this encounter Visit Diagnoses Diagnosis Primary hypertension Unspecified essential hypertension documented in this encounter Additional Health Concerns Assessment Noted Time PHQ-9 Depression Total Score: 0 01/27/20 24 9:06 AM EDT documented as of this encounter Care Teams Supervisor [employer] Relationship Specialty Start Date End Date Emiliana Slaughter MD [address] [place] [phone] PCP - General Internal Medicine 12/16/22 documented as of this encounter
--- OUTSIDE RECORDS SUMMARY | 2025-06-15 01:33 | XMS_ITS | Encounter Summary ---
Author Organization [employer] Address [address] [facility] [address] [place] [address] Care Team Providers Care Commercial Artist Lettering Name Role Phone Emiliana Slaughter MD Primary Care Provide r Reason for Visit * Reason Comments Med Refill Encounter Details Date Type Department Care Team ([facility] st Contact Info) Description 11/21/2024 Refill [facility] [address] [place], [place] [phone] Emiliana Slaughter MD [address] [place], [place] [phone] Social History Tobacco Use Types Packs/Day Years [...] documented as of this encounter Care Teams Commercial Artist Lettering Relationship Specialty Start Date End Date Emiliana Slaughter MD [address] [place] [address] PCP - General Internal Medicine 12/16/22 documented as of this encounter
--- OUTSIDE RECORDS SUMMARY | 2025-06-15 01:33 | XMS_ITS | Clinical Summary ---
Author Organization [employer] Address [address] [address] [place] [address] Care Team Providers Care Healthcare Recruiter Name Role Phone Emiliana Slaughter MD Primary Care Provide r Allergies No known active allergies Medications omega-3 (fish oil) 300 MG capsule Take 1 capsule by mouth in the morning. 07/14/20 18 Active benzonatate (Tessalon Perles) 100 MG capsuleIndicatio ns:Acute cough Take TID as needed for cough 21 capsule 09/30/20 22 Active folic acid (Folvite) 1 MG tablet Take 1,000 mcg by mouth in the morning. 03/14/20 22 Active glucose blood (FREESTYLE LITE) test strip every 8 (eight) hours. 08/13/20 18 Active glipiZIDE (Glucotrol) 10 MG tabletIndication s:Type 2 diabetes mellitus with hyperglycemia, without long-term current use of insulin (CMS/HCC) Take 1 tablet (10 mg) by mouth before breakfast and before evening meal. 60 tablet 11 04/13/20 23 Active clotrimazole-bet amethasone (Lotrisone) creamIndications :Balanitis Apply topically 2 times daily. 45 g 3 08/13/20 23 Active Multiple Vitamin (Multivitamin) tabletIndication s:Type 2 diabetes mellitus with hyperglycemia, unspecified whether longterm insulin use (CMS/HCC) TAKE 1 TABLET BY MOUTH EVERY MORNING WITH FOOD 90 tablet 1 12/22/19 25 Active cyanocobalamin (Vitamin B-12) 1000 MCG tablet TAKE 1 TABLET BY MOUTH EVERY MORNING 90 tablet 1 01/27/20 25 Active atorvastatin (Lipitor) 40 MG tablet TAKE 1 TABLET BY MOUTH EVERY MORNING 90 tablet 1 01/27/20 25 Active chlorhexidine (Hibiclens) 2 % external liquidIndication s:Folliculitis Apply topically if needed each day for wound care. 118 mL 1 02/10/20 25 Active lisinopril 2.5 MG tabletIndication s:Primary hypertension Take 1 tablet (2.5 mg) by mouth in the morning. 30 tablet 11 02/10/20 25 Active pioglitazone (Actos) 30 MG tabletIndication s:Type 2 diabetes mellitus with hyperglycemia, without long-term current use of insulin (CMS/HCC) Take 1 tablet (30 mg) by mouth Once per day. 30 tablet 11 02/10/20 25 026 Active omeprazole (PriLOSEC) [address] capsule TAKE 1 CAPSULE BY MOUTH TWICE DAILY IN THE MORNING AND AT BEDTIME 180 capsule 1 03/15/20 25 Active cholecalciferol (Vitamin D-3) 25 MCG tablet TAKE 1 TABLET BY MOUTH EVERY MORNING 90 tablet 1 03/15/20 25 Active acamprosate (Campral) 333 MG EC tabletIndication s:Alcohol-relate d disorder (CMS/HCC) TAKE 2 TABLETS BY MOUTH THREE TIMES DAILY IN THE MORNING, EVENING AND BEDTIME 180 tablet 5 03/31/20 25 Active sildenafil (Viagra) 100 MG tablet TAKE 1 TABLET 1 HOUR BEFORE SEXUAL RELATIONS ONCE DAILY NEEDED. 20 tablet 3 05/19/20 25 Active metFORMIN (Glucophage) 1000 MG tabletIndication s:Type 2 diabetes mellitus with hyperglycemia, unspecified whether local company intermodal truck driver insulin use (CMS/HCC) TAKE 1 TABLET BY MOUTH TWICE DAILY IN THE MORNING AND IN THE EVENING WITH MEALS 180 tablet 1 05/29/20 25 Active metFORMIN (Glucophage) 1000 MG tabletIndication s:Type 2 diabetes mellitus with hyperglycemia, unspecified whether local company intermodal truck driver insulin use (CMS/HCC) TAKE 1 TABLET BY MOUTH TWICE DAILY IN THE MORNING AND IN THE EVENING WITH MEALS 180 tablet 1 10/11/20 24 025 Discontinued sildenafil (Viagra) 100 MG tablet TAKE 1 TABLET 1 HOUR BEFORE SEXUAL RELATIONS ONCE DAILY NEEDED. 20 tablet 3 12/23/19 25 025 Discontinued Active Problems Problem Noted Date Diagnosed Date Folliculitis 02/09/2025 Assessment & Plan (02/09/2025 11:56 AM EDT): I will prescribe mupirocin ointment to use 3 times a day for 10 days in his nostrils I also prescribed chlorhexidine solution to wash himself Chronic fatigue 02/09/2025 Assessment & Plan (02/09/2025 11:56 AM EDT): Blood work ordered today patient will be contacted with results Axillary abscess 11/08/2024 Overview (11/08/2024): - Prescribed [...] 11/13/2023 Primary hypertension 04/13/2023 Assessment & Plan (05/11/2025 10:28 AM EDT): I advised: - Aerobic exercise to reduce [...] consulting health care provider Assessment & Plan (02/09/2025 11:54 AM EDT): I advise: - Aerobic exercise to reduce BP. Initial [...] consulting health care provider Assessment & Plan (10/28/2024 11:20 AM EST): [...] mellitus with hyperglycemia 01/19 Assessment & Plan (05/11/2025 10:27 AM EDT): Diabetes is: almost at goal - Lab Results Component Value Date HGBA1C 7.1 (A) 05/11/2025 HGBA1C 8.1 (A) 02/09/2025 HGBA1C 6.5 (A) 10/28/2024 - Lab Results Component Value Date MICROALBUR 35.0 07/29/2024 CREATININE 0.78 02/09/2025 -Changes: none - Diabetic eye exam:up to date - Diabetic foot exam:pending - Continue lifestyle modifications - Continue current medications - Follow up: 3 months Assessment & Plan (02/09/2025 11:55 AM EDT): Diabetes is: not controlled - Lab Results Component Value Date HGBA1C 8.1 (A) 02/09/2025 HGBA1C 6.5 (A) 10/28/2024 HGBA1C 9.7 (A) 07/28/2024 - Lab Results Component Value Date MICROALBUR 35.0 07/29/2024 CREATININE 0.91 11/10/2024 -Changes: I went up on pioglitazone to 30 mg daily, extensive counseling of diabetic diet done today I also encouraged for him to be adherent to his glipizide - Diabetic eye exam: Up-to-date - Diabetic foot exam: Pending - Continue lifestyle modifications - Continue current medications - Follow up: 3 months Assessment & Plan (10/28/2024 11:22 AM EST): [...] months ago was at goal, 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, I explain to [...] Encounters Date Type Department Care Team Description 05/28/2025 Refill [facility] [address] [place] [phone] Emiliana Slaughter MD Type 2 diabetes mellitus with hyperglycemia, unspecified whether longterm insulin use ([facility]) 05/18/2025 Refill [facility] [address] [place] [address] Emiliana Slaughter MD 05/11/2025 9:15 AM EDT Office Visit [facility] [address] [place] [phone] Emiliana Slaughter MD Primary hypertension (Primary Dx); Type 2 diabetes mellitus with hyperglycemia, without long-term current use of insulin (CMS/[facility]) 05/11/2025 Travel 05/10/2025 Telephone [facility] [address] [place] [phone] Emiliana Slaughter MD Chart Prep 05/03/2025 Patient Outreach [facility] [address] [place] [phone] Emiliana Slaughter MD Pre-visit Planning (SDOH screening completed on 10/20/2024) 03/29/2025 Refill [facility] [address] [place] [phone] Emiliana Slaughter MD Alcohol-related disorder ([facility]) from Last 3 Months Immunizations Immunization Administration Dates Next Due Hep B, adult [...] Date Recorded Patient Health Questionnaire-9 Score 0 05/11/2025 Patient Health Questionnaire-9 Score 0 05/11/2025 Last PHQ-9: Questionnaire Data Not on file 0 05/11/2025 Housing Stability Answer Date Recorded What is [...] Date Recorded Patient Health Questionnaire-2 Score 0 05/11/2025 Internet Access Answer Date Recorded Internet Access [...] Sign Reading Time Taken Comments Blood Pressure 124/78 05/11/2025 9:19 AM EDT Pulse 82 05/11/2025 9:19 AM EDT Temperature 36.1 C (97 F) 05/11/2025 9:19 AM EDT Respiratory Rate 18 05/11/2025 9:19 AM EDT Oxygen Saturation 99% 05/11/2025 9:19 AM EDT Inhaled Oxygen Concentration - - Weight 76.1 kg (167 lb 12.8 oz) 05/11/2025 9:19 AM EDT Height 167.6 cm (5' 6 ) 05/11/2025 9:19 AM EDT Body Mass Index 27.08 05/11/2025 9:19 AM EDT Plan of Treatment Health Maintenance Due Date Last Done Comments CT Colonography 1967 Colonoscopy 1967 FIT 1967 FOBT 1967 Sigmoidoscopy 1967 Disability Screening 1967 Diabetes: Foot Exam 1977 Zoster Vaccines (1 of 2) 2017 Dental Oral Exam 04/09/2019 10/08/2018 Dental X-Ray: Bitewings 10/09/2019 10/08/2018, 05/07 Dental Prophylaxis 02/16/2020 08/16/2019, 11/24/2018 Dental X-Ray: Full Mouth 10/09/2021 10/08/2018 Eye Exam 05/28/2025 05/28/2023, 08, 05/28/2023, Additional history exists Influenza Vaccine (#1) 2025 , 09/15/2023, 07/16/2022, Additional history exists Diabetes: Urine Protein Screening 07/29/2025 07/29/2024, 03/10/2023, 05/12/2022, Additional history exists Lipid Panel 07/29/2025 07/29/2024, 02/17, 05/12/2022, Additional history exists Diabetes: Hemoglobin A1C 08/11/2025 025, 02/09/2025, 10/28/2024, Additional history exists SDOH Screening 10/20/2025 10/20/2024 Alcohol/Substance Use Screening 10/28/2025 10/28/2024 Depression Screening 05/11/2026 05/11/2025, 05/11/20 Tobacco Screening 05/11/2026 05/11/2025 DTaP/Tdap/Td Vaccines (2 - Td or Tdap) 08/20/2026 08/20/2016, 03/30/2007 Colorectal Cancer Screening 11/25/2026 FIT DNA/Cologuard 11/25/2026 11/25/2023 RSV Patients and Patients Aged 60 years or older (1 - 1-dose 75+ series) 2042 Hepatitis B Vaccines Completed 01/10/2019, 10/13/2001, 09/08/2001 Pneumococcal Vaccine: 50+ Years Completed 01/27/2024, 01/10/2019 COVID-19 Vaccine Completed 07/29/2024, , 07/23/2022, Additional history exists HIV Screening Completed 02/09/2025, 05/19, 03/26/2022, Additional history exists Hepatitis C Screening Completed 02/09/2025, 021 HIB Vaccines Aged Out No longer eligi [...] patient's age to complete this topic Meningococcal B Vaccine Aged Out No l onger eligible based on patient's age to complete [...] Procedure Name Priority Date/Time Associated Diagnosis Comments LIPASE Routine 06/15/2025 12:02 AM EDT COMPREHENSIVE METABOLIC PANEL Routine 06/15/2025 12:02 AM EDT URINALYSIS, COMPLETE, WITH REFLEX TO CULTURE Routine 06/15/2025 12:02 AM EDT CBC WITH AUTO DIFFERENTIAL Routine 06/15/2025 12:02 AM EDT POCT GLYCATED HEMOGLOBIN, TOTAL Routine 05/11/2025 9:51 AM EDT Type 2 diabetes mellitus with hyperglycemia, without long-term current use of insulin (CMS/HCC) POCT GLUCOSE Routine 05/11/2025 9:20 AM EDT Type 2 diabetes mellitus with hyperglycemia, without long-term current use of insulin (CMS/HCC) HEPATITIS PANEL, GENERAL Routine 02/09/2025 9:47 AM EDT Chronic fatigue HIV 1/2 ANTIGEN/ANTIBODY, FOURTH GENERATION W/RFL Routine 02/09/2025 9:47 AM EDT Chronic fatigue ALBUMIN, RANDOM URINE W/CREATININE Routine 07/29/2024 9:39 AM EDT Type 2 diabetes mellitus with hyperglycemia, without long-term current use of insulin (CMS/HCC) LIPID PANEL, STANDARD Routine 07/29/2024 9:39 AM EDT Primary hypertension Type 2 diabetes mellitus with hyperglycemia, without long-term current use of insulin (CMS/HCC) LAB COLOGUARD COLON CANCER SCREEN Routine 11/25/2023 1:01 AM EST Colon cancer screening PROPHYLAXIS - ADULT Routine 08/16/2019 1 2:00 AM EDT INTRAORAL - COMPLETE SERIES OF RADIOGRAPHIC IMAGES Routine 10/08/2018 12:00 AM EST COMPREHENSIVE ORAL EVALUATION - NEW OR ESTABLISHED PATIENT Routine 10/08/2018 12:00 AM EST from Last 3 Months or Most Recently Relevant to Health Maintenance Results * (ABNORMAL) Urinalysis, Complete, with Reflex to Culture (06/15/2025 12:02 AM EDT) Color Urine Dark Yellow [facility] Appearance Urine Clear [facility] PH 6.0 5.0 - 9.0 [facility] Glucose Urine UA Negative Negative mg/dL [facility] Urine Blood Negative Negative [facility] Specific [place] - Urine >=1.030(H) 1.005 - 1.025 [facility] Urine Protein 30 (1+)(A) Neg-Trace mg/dL [facility] Urine Ketones Trace Negative mg/dL [facility] Nitrite Urine Negative Negative [facility] Leukocyte Esterase Urine Trace(A) Negative [facility] RBC Urine 0-2 0 - 2 /HPF [facility] Urine WBC 0-5 0 - 5 /HPF [facility] Urine Squamous Epithelial Cell 0-2 0 - 2 /HPF [facility] Urine Bacteria None Seen None Seen [facility] Hyaline Casts, Urine 0-2 0 - 2 /LPF [facility] 06/15/2025 12:0 2 AM EDT 06/15/2025 12:06 AM EDT Narrative [facility] - 06/15/2025 12:24 AM EDT Urine, Clean Catch us Generic External Data Provider LAB URINE ORDERAB LES Final Result [facility] [address] [place] [phone] * (ABNORMAL) CBC auto differential (06/15/2025 12:02 AM EDT) White Blood Count 7.4 4.8 - 10.8 X10*3/uL [facility] Red Blood Count 4.05(L) 4.60 - 5.80 X10*6/uL [facility] Hemoglobin 13.8(L) 14.0 - 18.0 g/dl [facility] Hematocrit 39.7(L) 42.0 - 52.0 % [facility] Mean Corpuscular Volume 98.0 80.0 - 98.0 fL [facility] Mean Corpuscular Hemoglobin 34.1(H) 27.0 - 33.0 pg [facility] Mean Corpuscular HGB Conc 34.8 31.0 - 36.0 g/dl [facility] Red Cell Distribution Width 11.9 11.0 - 16.0 % [facility] Platelet Count 192 160 - 400 X10*3/uL [facility] Mean Platelet Volume 9.8 9.4 - 12.4 fL [facility] Neutrophils Percent Auto 52.0 45 - 73 % [facility] Imm Gran Pct Auto 0.7(H) 0.0 - 0.4 % [facility] Lymphocytes Percent Auto 36.3 20 - 40 % [facility] Monocytes Percent Auto 9.8 2 - 11 % [facility] Eosinophils Percent Auto 0.8 0 - 4 % [facility] Basophils Percent Auto 0.4 0 - 2 % [facility] NRBC Pct Auto 0.0 0.0 - 0.2 /100WBC [facility] Neutrophils Absolute Auto 3.9 2.0 - 8.3 x10*3/uL [facility] Imm Gran Abs Auto 0.05(H) 0.00 - 0.03 X10*3/uL [facility] Lymphocytes Absolute Auto 2.7 1.2 - 4.9 X10*3/uL [facility] Monocytes Absolute Auto 0.7 0.1 - 1.2 X10*3/uL [facility] Eosinophils Absolute Auto 0.1 0.0 - 0.4 X10*3/uL [facility] Basophils Absolute Auto 0.0 0.0 - 0.2 X10*3/uL [facility] NRBC Abs Auto 0.000 0.0 - 0.012 X10*3/uL [facility] 06/15/2025 12:0 2 AM EDT 06/15/2025 12:06 AM EDT us Generic External Data Provider LAB BLOOD ORDERAB LES Final Result [facility] [address] [place] [phone] * Lipase (06/15/2025 12:02 AM EDT) Lipase 21 8 - 78 U/L [facility] 06/15/2025 12:0 2 AM EDT 06/15/2025 12:06 AM EDT us Generic External Data Provider LAB BLOOD ORDERAB LES Final Result Performing Organization Address [facility] Co de Phone Number [facility] [address] [place] [address] [phone] * (ABNORMAL) Comprehensive Metabolic Panel (06/15/2025 12:02 AM EDT) Sodium 136 135 - 145 mmol/L [facility] Potassium 3.9 3.3 - 5.1 mmol/L [facility] Chloride 104 96 - 108 mmol/L [facility] Carbon Dioxide 25 22 - 29 mmol/L [facility] Anion Gap 11(L) 12 - 20 [facility] Urea Nitrogen (BUN) 19(H) 9 - 16 mg/dL [facility] Creatinine, Serum 0.88 0.5 - 1.4 mg/dL [facility] Creatinine Clr Calc Pharmacy 89.6 [facility] Comment:eGFR (calculated fro m the MDRD study equation) and eCrCl(calculated from the Cockcroft-Gault equation) are based ondifferent parameters and may not yield comparable results.If eCrCl result is absurd, please check patient'sheight/weight. Estimated Glomerular Filt Rate >60 [facility] Comment:Chronic Kidney Disea se: Estimated GFR < 60 mL/min/[id number] Kidney Disease: Estimated GFR < 15 mL/min/1.73m2 Glucose 153(H) 60 - 115 mg/dL [facility] Calcium 9.1 8.4 - 10.2 mg/dL [facility] Bilirubin, Total 0.8 0.0 - 1.0 mg/dL [facility] Aspartate Amino Transferase 17 5 - 37 U/L [facility] Alanine Aminotransferase 14 0 - 40 U/L [facility] Total Protein 7.4 6.5 - 8.0 g/dL [facility] Albumin Level 4.6 3.5 - 5.0 g/dL [facility] Alkaline Phosphatase 82 39 - 117 U/L [facility] 06/15/2025 12:0 2 AM EDT 06/15/2025 12:06 AM EDT us Generic External Data Provider LAB BLOOD ORDERAB LES Final Result Performing Organization Address City/State/[facility] Co de Phone Number [facility] [address] [place] [phone] * (ABNORMAL) POCT HGB A1C (05/11/2025 9:51 AM EDT) Hemoglobin A1C 7.1(A) 4.0 - 5.7 % QC Media Lot # [id number] Lot# Expiration Date Blood 05/11/2025 9:51 AM EDT us Emiliana Salgado MD POINT OF CARE TEST EN TER/EDIT ORDERABLES Final Result * (ABNORMAL) POCT Glucose (05/11/2025 9:20 AM EDT) Glucose Blood, POC 266(A) 60 - 200 mg/dL Comment:random QC Media Lot # [id number] Lot# Expiration Date [id number] Blood Capillary blood specimen / Unknown 05/11/2025 9:20 AM EDT us Emiliana Salgado MD POINT OF CARE TEST EN TER/EDIT ORDERABLES Final Result * Hepatitis Panel, General (02/09/2025 9:47 AM EDT) Hepatitis A IgM Nonreactive Nonreactive [facility] Comment:IgM antibodies to GAY V not detected; does not exclude earlyacute or recovered HAV infection. ~Hepatitis B Surface Antibody REACTIVE Nonreactive [facility] Comment:REACTIVE: > 11.99 mI U/mL Hepatitis B Core Antibody Nonreactive Nonreactive [facility] Hepatitis C Antibody Nonreactive Nonreactive [facility] Comment:Antibodies to HCV no t detected; does not exclude early acuteHCV infection. Hepatitis B Surface Ag Negative Negative [facility] Blood Venous blood specimen / Unknown 02/09/2025 9:47 AM EDT 02/09/2025 11:13 AM EDT us Emiliana Salgado MD LAB BLOOD ORDERABLES Final Result [facility] [address] [place] [phone] * HIV-1/2 Antigen and Antibodies, Fourth Generation, with Reflexes (02/09/2025 9:47 AM EDT) Pathologist [facility] HIV AB/AG Nonreactive Nonreactive [facility] Comment:HIV-1 p24 Ag and/or HIV-1/HIV-2 Ab not detected.A test result that is nonreactive does not exclude thepossibility of exposure to or infection with HIV-1 and/orHIV-2. Nonreactive results in this assay for individualswith prior exposure to HIV-1 and/or HIV-2 may be due toantigen and antibody levels that are below the limit ofdetection of this assay.The [employer] HIV Ag/Ab Combo assay result andsupplemental assay results should be interpreted inconjunction with the patient's clinical presentation,history and other laboratory results. If the results areinconsistent with clinical evidence, additional testing issuggested to confirm the result. Blood Venous blood specimen / Unknown 02/09/2025 9:47 AM EDT 02/09/2025 11:13 AM EDT us Emiliana Salgado MD LAB BLOOD ORDERABLES Final Result Performing Organization Address [facility] Co de Phone Number [facility] [address] [place] [phone] * Albumin, Random Urine W/Creatinine (07/29/2024 9:39 AM EDT) Creatinine, Urine 179.93 mg/dL [facility] Microalbumin Urine 35.0 mg/L [facility] Microalbum Creatinine Ratio Ur 19.4 <30 ug/mg cr [facility] Comment:Albumin/Creatinine R atio Reference Ranges: Normal: < 30 ug/mg creatinine Microalbuminuria: 30 - 300 ug/mg creatinineClinical Albuminuria: > 300 ug/mg creatinine Urine (Urine, Random) 07/29/2024 9:39 AM EDT 07/29/2024 11:02 AM EDT us Emiliana Salgado MD LAB URINE ORDERABLES Final Result Performing Organization Address [facility] Co de Phone Number [facility] [address] [place] [phone] * (ABNORMAL) Lipid Panel, Standard (07/29/2024 9:39 AM EDT) Triglycerides 137 <150 mg/dL [facility] Comment:Desirable Triglyceri de: less than 150 mg/dLBorderline High Triglyceride 150-199 mg/dLHigh Triglyceride: 200-499 mg/dLVery High Triglyceride: greater than or equal to 5OO mg/dL Cholesterol 103 <200 mg/dL [facility] Comment:Desirable Cholestero l: less than 200 mg/dLBorderline High Cholesterol: 200-239 mg/dLHigh Cholesterol: greater than 239 mg/dL LDL Cholesterol Calculated 38 <100 mg/dL [facility] Comment:Desirable LDL: less than 100 mg/dLNear Optimal/Above Optimal LDL: 110- 129 mg/dLBorderline High LDL: 130-159 mg/dLHigh LDL: 160-189 mg/dLVery High LDL: greater than or equal to 190 mg/dL HDL Cholesterol 38(L) >40 mg/dL [facility] Comment:Desirable HDL: great er than 40 mg/dL Note: This HDL assay may give artificially low results in patients with liver disease. Blood Venous blood specimen / Unknown 07/29/2024 9:39 AM EDT 07/29/2024 11:17 AM EDT Emiliana Salgado MD LAB BLOOD ORDERABLES Final Result [facility] [address] [place] [phone] * Cologuard?? colon cancer screening (11/25/2023 1:01 AM EST) Cologuard Result Negative Negative 12/09/19 5:28 PM EST [facility] (CLIA #:[id number]) Comment: NEGATIVE TEST RESULT. A negative Cologuard result indicates a low likelihood that a colorectal cancer (CRC) or advanced adenoma (adenomatous polyps with more advanced pre-malignant features) is present. The chance that a person with a negative Cologuard test has a colorectal cancer is less than 1 in 1500 (negative predictive value >99.9%) or has an advanced adenoma is less than 5.3% (negative predictive value 94.7%). These data are based on a prospective cross-sectional study of 10,000 individuals at average risk for colorectal cancer who were screened with both Cologuard and colonoscopy. (Sharona Grimes al, N Engl J Med 2014;370(14):7712-6720) The normal value (reference range) for this assay is negative. COLOGUARD RE-SCREENING RECOMMENDATION: Periodic colorectal cancer screening is an important part of preventive healthcare for asymptomatic individuals at average risk for colorectal cancer. Following a negative Cologuard result, the [place] [employer] and U.S. Multi-Society Task Force screening guidelines recommend a Cologuard re-screening interval of 3 years. References: [place] [employer] Guideline for Colorectal Cancer Screening: https://www.cancer.org/cancer/wadvg-wayadt-pcrxkg/jtiurvgja-tvtsimqcz-ldrdeol/ac s-rec ommendations.html.; Richar DK, Gely CR, Isaiah ChaseK, Colorectal Cancer Screening: Recommendations for Physicians and Patients from the U.S. Multi-Society Task Force on Colorectal Cancer Screening , Am J Gastroenterology 2017; 112:1158-5303. TEST DESCRIPTION: Composite algorithmic analysis of stool DNA-biomarkers with hemoglobin immunoassay. Quantitative values of individual biomarkers are not [...] (Sharona Grimes al, N Engl J Med 2014;370(14):4083-4315.) Cologuard may produce a false negative or false positive result (no colorectal cancer or precancerous polyp present at colonoscopy follow up). A negative Cologuard test result does not guarantee the absence of CRC or advanced adenoma (pre-cancer). The current Cologuard screening interval is every 3 years. ([place] [employer] and U.S. Multi-Society Task Force). Cologuard performance data in a 10,000 patient pivotal study using colonoscopy as the reference method can be accessed at the following location: [email or web address]. Additional description of the Cologuard test process, warnings and precautions can be found at [email or web address]. Stool specimen (specimen) 11/25/2023 1:01 AM EST 11/27/2023 1:25 PM EST us Emiliana Salgado MD LAB MOLECULAR DIAGNOS TICS ORDERABLES Final Result [facility] (CLIA #:[id number]) [place] [address], [place] [phone] from Last 3 Months or Most Recently Relevant to Health Maintenance Insurance [employer] [place] [id number] DENTAL - [facility] DENTAL Care Teams Healthcare Recruiter Relationship Specialty Start Date End Date Emiliana Slaughter MD [address] [place] [id number] PCP - General Internal Medicine 12/16/22
--- OUTSIDE RECORDS SUMMARY | 2025-06-15 01:33 | XMS_ITS | Encounter Summary ---
Author Organization [employer] Address [address] [facility] [address] [place] [address] Care Team Providers Care Slot Ambassador Name Role Phone Emiliana Slaughter MD Primary Care Provide r Reason for Visit * Reason Comments Med Refill Encounter Details Date Type Department Care Team ([facility] st Contact Info) Description 08/26/2023 Refill [facility] MEDICINE [address] [place], [place] [phone] Emiliana Slaughter MD [address] [place], [place] [phone] Alcohol-related disorder (CMS/HCC) Social History Tobacco Use [...] t he electric, gas, oil or water [employer] threatened to shut off services in your [...] disorders documented in this encounter Care Teams Slot Ambassador Relationship Specialty Start Date End Date Emiliana Slaughter MD [address] [place] [phone] PCP - General Internal Medicine 12/16/22 documented as of this encounter
--- OUTSIDE RECORDS SUMMARY | 2025-06-15 01:33 | XMS_ITS | Encounter Summary ---
Author Organization [employer] Address [address] [facility] 7[address] [place] [address] Care Team Providers Care Duct Layer Helper Name Role Phone Smiley Pena MD Primary Care Provider Elsa Leroy Primary Care Provider Emiliana Carter MD Primary Care Provide r Encounter Details Date Type Department Care Team (Latest Contact Info) Description 11/24/2018 Abstract [facility] CONVERSIONS Dental, Provider, DDS Social History [...] on filedocumented in this encounter Care Teams Duct Layer Helper Relationship Specialty Start Date End Date Smiley Pena MD PCP - General Family Medicine 09/01/19 11/13/22 Elsa Kelley FNP PCP - General Family Medicine 11/14/22 12/15/22 Emiliana Slaughter MD [address] [place] [address] PCP - General Internal Medicine 12/16/22 documented as of this encounter
--- NOTE | 2025-06-15 01:51 | ED.ABDPAIN ---
HPI - Abdominal Pain General Chief Complaint: Abdominal Pain Stated Complaint: abd pain Time Seen by Provider: 06/15/25 01:23 Source: patient Mode of arrival: ambulatory Limitations: no limitations History of Present Illness ED Provider: DR. Nice HPI narrative: 59-year-old male with past medical history significant for alcoholic pancreatitis, BPH, blindness in the left eye came in for evaluation of epigastric pain started 3 days ago after drinking hard liquor over the weekends, patient describes the pain as mild epigastric pain with no radiation, no nausea, no vomiting, no fever, no dysuria, no frequency urination, no hematoma. Had normal bowel movement, passing flatus, no history of intra-abdominal surgery in the past. Patient had multiple CTs in the past done for evaluation of pancreatitis CT usually showed no acute intra-abdominal pathology. Related Data Home Medications ?Medication ?Instructions ?Recorded ?Confirmed acamprosate 333 mg tablet,delayed 666 mg PO TID 10/17/22 01/19/25 release atorvastatin 40 mg tablet 40 mg PO DAILY 10/17/22 01/19/25 cholecalciferol (vitamin D3) 25 25 mcg PO QAM 10/17/22 01/19/25 mcg (1,000 unit) tablet metformin 1,000 mg tablet 1,000 mg PO BID 10/17/22 01/19/25 multivitamin 1 tab PO QAM 12/23/22 01/19/25 lisinopril 2.5 mg tablet 2.5 mg PO DAILY 12/28/23 01/19/25 pioglitazone 15 mg tablet 15 mg PO DAILY 12/28/23 01/19/25 Previous Rx's ?Medication ?Instructions ?Recorded omeprazole 40 mg capsule,delayed 40 mg PO DAILY #14 caps 10/25/23 release ondansetron 4 mg disintegrating 4 mg PO Q8H PRN nausea and 05/01/24 tablet vomiting #20 tabs sucralfate 100 mg/mL oral 10 ml PO BID 10 days #200 mL 05/01/24 suspension (Carafate) clotrimazole-betamethasone 1 1 appl topical BID #45 grams 06/16/24 %-0.05 % topical cream sucralfate 1 gram tablet 1 g PO TID #90 tabs 10/23/24 silodosin 4 mg capsule (Rapaflo) 4 mg PO DAILY #90 caps 04/13/25 omeprazole 40 mg capsule,delayed 40 mg PO DAILY #14 caps 06/15/25 release Allergies Allergy/AdvReac Type Severity Reaction Status Date / Time No Known Allergies (No Known Allergy Verified 06/14/25 23:54 Allergies*) Review of Systems Review of Systems All other systems are reviewed and are negative Constitutional: Reports as per HPI and Reports no additional constitutional complaints Eyes: Reports as per HPI and Reports no additional eye complaints Reports system reviewed and no additional complaints, except as documented Cardiovascular: Reports as per HPI and Reports no additional cardiovascular complaints Respiratory: Reports as per HPI and Reports no additional respiratory complaints Gastrointestinal: Reports as per HPI and Reports no additional gastrointestinal complaints Genitourinary: Reports no additional female genitourinary complaints Musculoskeletal: Reports no additional musculoskeletal complaints Skin/Breast: Reports system reviewed and no additional complaints, except as docu Psychiatric: Reports no additional psychiatric complaints Endocrine: Reports no additional endocrine complaints Hematologic/Lymphatic: Reports no additional hematologic/lymphatic complaints Allergic/Immunologic: Reports no additional allergic/immunologic complaints Reports system reviewed and no additional complaints, except as documented and Reports Abnormal speech present [facility] Past Medical History Medical History Infected cyst of skin Type 2 diabetes mellitus Hypertension Pancreatitis High cholesterol Diabetes Social History Social History Patient Tobacco Use Status: Current everyday Tobacco user Smoked in Last 30 Days: Yes Use of substances other than those prescribed or required for medical reasons: No Advance Directives: No Advance Directives Information Provided: Yes Do you have a plan to hurt others: No Plan Physical Exam ED Vital Signs: Vital Signs - 24 hr 06/14/25 23:52 Temperature 96.8 F Pulse Rate 88 Respiratory Rate 20 Blood Pressure 140/70 H Pulse Oximetry 98 Oxygen Delivery Method Room Air BMI result Body Mass Index 25.8 Vital signs have been reviewed and appear to be correct. Blood pressure elevated. Heart rate normal. Respiratory rate normal. Temperature normal. Oxygen saturation normal. Appearance: Alert. Oriented X3. No acute distress. Head: Normal external exam. Normocephalic. Atraumatic. No Chowdhury signs noted. No raccoon eyes noted Eyes: PERRLA. EOMI. Conjunctiva and sclera normal. Eyelids normal. ENT: TM's Normal. Pharynx normal. Uvula midline. Moist mucous membranes. No trismus noted. No drooling noted. No muffled voice noted. Neck: Normal inspection. Neck supple. FROM. No adenopathy. Thyroid Normal. No meningeal signs. No neck mass noted. CVS: Normal heart rate and rhythm. Heart sound normal. No murmurs noted. Pulses normal throughout. Respiratory: No respiratory distress. Painless inspiration. Breath sounds normal. No wheezes/rales/rhonchi noted. Chest nontender. No accessory muscle usage noted or decreased air movement noted. Abdomen: Soft and nontender. Bowel sounds normal in all 4 quadrants. No distention noted. No organomegaly noted. No visible injury noted. Back: No CVA tenderness. Full range of motion noted. Skin: Skin warm and dry. Normal skin color. Normal skin turgor. No rashes/lesions/lacerations noted. Extremities: No lower extremity edema. Extremities exhibit normal range of motion. Extremities nontender. Neuro: Oriented X 3. Cranial nerve exam: II-XII are grossly intact No motor deficit. No sensory deficit. Reflexes normal. Course Reevaluation(s) Reevaluation #1: Three days of abdominal pain after drinking alcohol over the weekend, unremarkable labs, patient had multiple CTs in the past physical exam reveals no significant abdominal pain or tenderness with normal WBCs and normal lipase this certainly can be mild form of alcoholic pancreatitis versus alcoholic gastritis, will administer IV Tylenol/Toradol, Pepcid and Maalox and reassess. Time: 01:55 Reevaluation #2: Patient feels much better, able to tolerate p.o. intake, patient is asking to go home, patient was instructed to abstain from drinking alcohol. Time: 04:01 Medical Decision Making Differential Diagnosis Differential Diagnoses: The differential diagnosis associated with the presentation includes (Alcoholic pancreatitis, alcoholic gastritis, electrolyte derangement, severe anemia, dehydration.) Admission/Observation Consideration of admission/observation: Escalation of care including admission/observation considered Lab Data MDM Lab Attestation statement: I reviewed the patient's lab results. 06/15/25 00:02 06/15/25 00:02 Labs: Lab Results 06/15/25 Range/Units 00:02 WBC 7.4 (4.8-10.8) X10*3/uL RBC 4.05 L (4.60-5.80) X10*6/uL Hgb 13.8 L (14.0-18.0) g/dl Hct 39.7 L (42.0-52.0) % MCV 98.0 (80.0-98.0) fL MCH 34.1 H (27.0-33.0) pg MCHC 34.8 (31.0-36.0) g/dl RDW 11.9 (11.0-16.0) % Plt Count 192 (160-400) X10*3/uL MPV 9.8 (9.4-12.4) fL Immature Gran % (Auto) 0.7 H (0.0-0.4) % Neut % (Auto) 52.0 (45-73) % Lymph % (Auto) 36.3 (20-40) % Camas % (Auto) 9.8 (2-11) % Eos % (Auto) 0.8 (0-4) % Baso % (Auto) 0.4 (0-2) % Lymph # (Auto) 2.7 (1.2-4.9) X10*3/uL Camas # (Auto) 0.7 (0.1-1.2) X10*3/uL Eos # (Auto) 0.1 (0.0-0.4) X10*3/uL Baso # (Auto) 0.0 (0.0-0.2) X10*3/uL Abs Immat Gran (auto) 0.05 H (0.00-0.03) X10*3/uL Absolute Neuts (auto) 3.9 (2.0-8.3) x10*3/uL Absolute Nucleated RBC 0.000 (0.0-0.012) X10*3/uL Nucleated RBC % (auto) 0.0 (0.0-0.2) /100WBC Sodium 136 (135-145) mmol/L Potassium 3.9 (3.3-5.1) mmol/L Chloride 104 (96-108) mmol/L Carbon Dioxide 25 (22-29) mmol/L Anion Gap 11 L (12-20) BUN 19 H (9-16) mg/dL Creatinine 0.88 (0.5-1.4) mg/dL Estim Creat Clear Calc 89.6 Estimated GFR > 60 Random Glucose 153 H (60-115) mg/dL Calcium 9.1 (8.4-10.2) mg/dL Total Bilirubin 0.8 (0.0-1.0) mg/dL AST 17 (5-37) U/L ALT 14 (0-40) U/L Alkaline Phosphatase 82 (39-117) U/L Total Protein 7.4 (6.5-8.0) g/dL Albumin 4.6 (3.5-5.0) g/dL Lipase 21 (8-78) U/L Urine Color Dark Yellow Urine Appearance Clear Urine pH 6.0 (5.0-9.0) Ur Specific Breese >= 1.030 H (1.005-1.025) Urine Protein 30 (1+) H (Neg-Trace) mg/dL Urine Glucose (UA) Negative (Negative) mg/dL Urine Ketones Trace (Negative) mg/dL Urine Blood Negative (Negative) Urine Nitrite Negative (Negative) Ur Leukocyte Esterase Trace H (Negative) Urine RBC 0-2 (0-2) /HPF Urine WBC 0-5 (0-5) /HPF Ur Squamous Epith Cells 0-2 (0-2) /HPF Urine Bacteria None Seen (None Seen) Hyaline Casts 0-2 (0-2) /LPF Medications Administered Discontinued Medications Generic Name Dose Route Start Last Admin Trade Name Northq PRN Reason Stop Dose Admin Al Hydroxide/Mg Hydroxide 30 ml 06/15/25 01:34 06/15/25 02:29 Magnesium Hydrox/Alum Hydrox 30 Ml Oral.Susp PO 06/15/25 01:35 30 ml ONCE ONE Administration Famotidine 20 mg 06/15/25 01:34 06/15/25 02:29 Famotidine/Pf 20 Mg/2 Ml Vial IVPUSH 06/15/25 01:35 20 mg ONCE ONE Administration Sodium Chloride 1,000 mls @ 999 mls/hr 06/15/25 01:31 06/15/25 02:31 Ns IV 06/15/25 02:31 999 mls/hr .Q1H1M ONE Administration Acetaminophen 1,000 mg in 100 mls @ 400 mls/hr 06/15/25 01:31 06/15/25 02:45 Ofirmev IV 06/15/25 01:45 Infused ONCE ONE Infusion Ketorolac Tromethamine 15 mg 06/15/25 01:31 06/15/25 02:29 Ketorolac Tromethamine 15 Mg/Ml Vial IVPUSH 06/15/25 01:32 15 mg ONCE ONE Administration Discharge Plan Discharge Clinical Impression: Alcoholic pancreatitis, Alcoholic gastritis Patient Disposition: Home, Self-Care Instructions: Gastritis (ED), Pancreatitis (ED) Additional Instructions: Abstain from drinking alcohol. Prescriptions: New omeprazole 40 mg capsule,delayed release(DR/EC) 40 mg PO DAILY Qty: 14 0RF No Action silodosin [Rapaflo] 4 mg capsule 4 mg PO DAILY Qty: 90 1RF Rx Instructions: must administer with a meal/food omeprazole 40 mg capsule,delayed release(DR/EC) 40 mg PO DAILY Qty: 14 0RF sucralfate [Carafate] 100 mg/mL suspension 10 ml PO BID 10 Days Qty: 200 0RF ondansetron 4 mg tablet,disintegrating 4 mg PO Q8H PRN (Reason: nausea and vomiting) Qty: 20 0RF sucralfate 1 gram tablet 1 g PO TID Qty: 90 0RF multivitamin Tablet 1 tab PO QAM acamprosate 333 mg tablet,delayed release (DR/EC) 666 mg PO TID metformin 1,000 mg tablet 1,000 mg PO BID cholecalciferol (vitamin D3) 25 mcg (1,000 unit) tablet 25 mcg PO QAM atorvastatin 40 mg tablet 40 mg PO DAILY clotrimazole-betamethasone 1-0.05 % cream 1 appl topical BID Qty: 45 0RF Rx Instructions: apply bid for 7 days then prn. lisinopril 2.5 mg tablet 2.5 mg PO DAILY pioglitazone 15 mg tablet 15 mg PO DAILY Print Language: Montserratian
[2025-06-15] MEDS: Magnesium Hydrox/Alum Hydrox 30 ML ORAL.SUSP PO (02:29)
--- NOTE | 2025-06-15 03:42 | PC.NURSE ---
RN called to bedside to find patient awake and alert, laying in bed without issue/distress noted. Pt reports that his IVF were complete and is now requesting to be discharged stating that he feels better and needs to go to work in the AM.
== END 2025-06-15 05:22 | disposition home or self-care (01) ==
PROVIDERS: Emergency Provider Emergency Medicine; PCP Internal Medicine
DX: K29.20 Alcoholic gastritis without bleeding (principal); K85.20 Alcohol induced acute pancreatitis without necrosis or infection; I10 Essential (primary) hypertension; E11.9 Type 2 diabetes mellitus without complications; Z72.0 Tobacco use; Z87.19 Personal history of other diseases of the digestive system; Z79.899 Other long term (current) drug therapy
CPT/HCPCS: 36415; 80053; 81001; 83690; 85025; 96365; 96375; 99284; J0131; J1308; J1885

== ENCOUNTER 2025-06-15 23:54 | Emergency (ER) | payer OTHER, SELFPAY ==
[2025-06-16 00:21] VITALS: BP 149/71; PULSE 75; RESP 18; TEMP 36.5; O2SAT 98; BMI 26.6
--- OUTSIDE RECORDS SUMMARY | 2025-06-16 00:31 | XMS_ITS | Encounter Summary ---
Author Organization [employer] Address [address] [facility] [address] [place] [address] Care Team Providers Care Stem Crusher Name Role Phone Emiliana Slaughter MD Primary Care Provide r Reason for Visit * Reason Comments Med Refill Encounter Details Date Type Department Care Team ([facility] st Contact Info) Description 05/06/2024 Refill [facility] MEDICINE [address] [place], [place] [phone] Emiliana Slaughter MD [address] [place], [place] [phone] Primary hypertension Social History Tobacco Use Types [...] documented as of this encounter Care Teams Stem Crusher Relationship Specialty Start Date End Date Emiliana Slaughtre MD [address] [place] [phone] PCP - General Internal Medicine 12/16/22 documented as of this encounter
--- OUTSIDE RECORDS SUMMARY | 2025-06-16 00:32 | XMS_ITS | Clinical Summary ---
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 (CMS/HCC) TAKE 1 TABLET BY MOUTH TWICE DAILY IN THE MORNING AND IN THE EVENING WITH MEALS 180 tablet 1 05/29/20 25 Active metFORMIN (Glucophage) 1000 MG tabletIndication s:Type 2 diabetes mellitus with hyperglycemia, unspecified whether long distance operator insulin use (CMS/HCC) TAKE 1 TABLET BY [...] months ago was at goal, 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, I explain to [...] Type Department Care Team Description 05/28/2025 Refill [facility] [address] [place] [phone] Emiliana Slaughter MD Type 2 diabetes mellitus with hyperglycemia, unspecified whether group home insulin use ([facility]) 05/18/2025 Refill [facility] [address] [place] [address] Emiliana Slaughter MD 05/11/2025 9:15 AM EDT Office Visit [facility] [address] [place] [phone] Emiliana Slaughter MD Primary hypertension (Primary Dx); Type 2 diabetes mellitus with hyperglycemia, without long-term current use of insulin (CMS/[facility]) 05/11/2025 Travel 05/10/2025 Telephone [facility] [address] [place] [phone] Emiliana Slaughter MD Chart Prep 05/03/2025 Patient Outreach [facility] [address] [place] [phone] Emiliana Slaughter MD Pre-visit Planning (SDOH screening completed on 10/20/2024) 03/29/2025 Refill [facility] [address] [place] [phone] Emiliana Slaughter MD Alcohol-related disorder ([facility]) from Last 3 Months Immunizations Immunization Administration [...] 12:02 AM EDT) Color Urine Dark Yellow [facility] Appearance Urine Clear [facility] PH 6.0 5.0 - 9.0 [facility] Glucose Urine UA Negative Negative mg/dL [facility] Urine Blood Negative Negative [facility] Specific [place] - Urine >=1.030(H) 1.005 - 1.025 [facility] Urine Protein 30 (1+)(A) Neg-Trace mg/dL [facility] Urine Ketones Trace Negative mg/dL [facility] Nitrite Urine Negative Negative [facility] Leukocyte Esterase Urine Trace(A) Negative [facility] RBC Urine 0-2 0 - 2 /HPF [facility] Urine WBC 0-5 0 - 5 /HPF [facility] Urine Squamous Epithelial Cell 0-2 0 - 2 /HPF [facility] Urine Bacteria None Seen None Seen [facility] Hyaline Casts, Urine 0-2 0 - 2 /LPF [facility] 06/15/2025 12:0 2 AM EDT 06/15/2025 12:06 AM EDT Narrative [facility] - 06/15/2025 12:24 AM EDT Urine, Clean Catch us Generic External Data Provider LAB URINE ORDERAB LES Final Result [facility] [address] [place] [phone] * (ABNORMAL) CBC auto differential (06/15/2025 12:02 AM EDT) White Blood Count 7.4 4.8 - 10.8 X10*3/uL [facility] Red Blood Count 4.05(L) 4.60 - 5.80 X10*6/uL [facility] Hemoglobin 13.8(L) 14.0 - 18.0 g/dl [facility] Hematocrit 39.7(L) 42.0 - 52.0 % [facility] Mean Corpuscular Volume 98.0 80.0 - 98.0 fL [facility] Mean Corpuscular Hemoglobin 34.1(H) 27.0 - 33.0 pg [facility] Mean Corpuscular HGB Conc 34.8 31.0 - 36.0 g/dl [facility] Red Cell Distribution Width 11.9 11.0 - 16.0 % [facility] Platelet Count 192 160 - 400 X10*3/uL [facility] Mean Platelet Volume 9.8 9.4 - 12.4 fL [facility] Neutrophils Percent Auto 52.0 45 - 73 % [facility] Imm Gran Pct Auto 0.7(H) 0.0 - 0.4 % [facility] Lymphocytes Percent Auto 36.3 20 - 40 % [facility] Monocytes Percent Auto 9.8 2 - 11 % [facility] Eosinophils Percent Auto 0.8 0 - 4 % [facility] Basophils Percent Auto 0.4 0 - 2 % [facility] NRBC Pct Auto 0.0 0.0 - 0.2 /100WBC [facility] Neutrophils Absolute Auto 3.9 2.0 - 8.3 x10*3/uL [facility] Imm Gran Abs Auto 0.05(H) 0.00 - 0.03 X10*3/uL [facility] Lymphocytes Absolute Auto 2.7 1.2 - 4.9 X10*3/uL [facility] Monocytes Absolute Auto 0.7 0.1 - 1.2 X10*3/uL [facility] Eosinophils Absolute Auto 0.1 0.0 - 0.4 X10*3/uL [facility] Basophils Absolute Auto 0.0 0.0 - 0.2 X10*3/uL [facility] NRBC Abs Auto 0.000 0.0 - 0.012 X10*3/uL [facility] 06/15/2025 12:0 2 AM EDT 06/15/2025 12:06 AM EDT us Generic External Data Provider LAB BLOOD ORDERAB LES Final Result [facility] [address] [place] [phone] * Lipase (06/15/2025 12:02 AM EDT) Lipase 21 8 - 78 U/L [facility] 06/15/2025 12:0 2 AM EDT 06/15/2025 12:06 AM EDT us Generic External Data Provider LAB BLOOD ORDERAB LES Final Result Performing Organization Address [facility] Co de Phone Number [facility] [address] [place] [phone] * (ABNORMAL) Comprehensive Metabolic Panel (06/15/2025 12:02 AM EDT) Sodium 136 135 - 145 mmol/L [facility] Potassium 3.9 3.3 - 5.1 mmol/L [facility] Chloride 104 96 - 108 mmol/L [facility] Carbon Dioxide 25 22 - 29 mmol/L [facility] Anion Gap 11(L) 12 - 20 [facility] Urea Nitrogen (BUN) 19(H) 9 - 16 mg/dL [facility] Creatinine, Serum 0.88 0.5 - 1.4 mg/dL [facility] Creatinine Clr Calc Pharmacy 89.6 [facility] Comment:eGFR (calculated fro m the MDRD study equation) and eCrCl(calculated from the Cockcroft-Gault equation) are based ondifferent parameters and may not yield comparable results.If eCrCl result is absurd, please check patient'sheight/weight. Estimated Glomerular Filt Rate >60 [facility] Comment:Chronic Kidney Disea se: Estimated GFR < 60 mL/min/1.22z9Meuebw Kidney Disease: Estimated GFR < 15 mL/min/1.73m2 Glucose 153(H) 60 - 115 mg/dL [facility] Calcium 9.1 8.4 - 10.2 mg/dL [facility] Bilirubin, Total 0.8 0.0 - 1.0 mg/dL [facility] Aspartate Amino Transferase 17 5 - 37 U/L [facility] Alanine Aminotransferase 14 0 - 40 U/L [facility] Total Protein 7.4 6.5 - 8.0 g/dL [facility] Albumin Level 4.6 3.5 - 5.0 g/dL [facility] Alkaline Phosphatase 82 39 - 117 U/L [facility] 06/15/2025 12:0 2 AM EDT 06/15/2025 12:06 AM EDT us Generic External Data Provider LAB BLOOD ORDERAB LES Final Result Performing Organization Address City/State/[facility] Co de Phone Number [facility] [address] [place] [phone] * (ABNORMAL) POCT HGB A1C (05/11/2025 [...] Media Lot # [id number] Lot# Expiration Date [id number] Blood Capillary blood specimen / Unknown 05/11/2025 9:20 AM EDT us Emiliana Salgado MD POINT OF CARE TEST EN TER/EDIT ORDERABLES Final Result * Hepatitis Panel, General (02/09/2025 9:47 AM EDT) Hepatitis A IgM Nonreactive Nonreactive [facility] Comment:IgM antibodies to GAY V not detected; does not exclude earlyacute or recovered HAV infection. ~Hepatitis B Surface Antibody REACTIVE Nonreactive [facility] Comment:REACTIVE: > 11.99 mI U/mL Hepatitis B Core Antibody Nonreactive Nonreactive [facility] Hepatitis C Antibody Nonreactive Nonreactive [facility] Comment:Antibodies to HCV no t detected; does not exclude early acuteHCV infection. Hepatitis B Surface Ag Negative Negative [facility] Blood Venous blood specimen / Unknown 02/09/2025 9:47 AM EDT 02/09/2025 11:13 AM EDT us Emiliana Salgado MD LAB BLOOD ORDERABLES Final Result [facility] [address] [place] [phone] * HIV-1/2 Antigen and Antibodies, Fourth Generation, with Reflexes (02/09/2025 9:47 AM EDT) Pathologist [facility] HIV AB/AG Nonreactive Nonreactive [facility] Comment:HIV-1 p24 Ag and/or HIV-1/HIV-2 Ab not detected.A test result that is nonreactive does not exclude thepossibility of exposure to or infection with HIV-1 and/orHIV-2. Nonreactive results in this assay for individualswith prior exposure to HIV-1 and/or HIV-2 may be due toantigen and antibody levels that are below the limit ofdetection of this assay.The SPHARES HIV Ag/Ab Combo assay result andsupplemental assay results should be interpreted inconjunction with the patient's clinical presentation,history and other laboratory results. If the results areinconsistent with clinical evidence, additional testing issuggested to confirm the result. Blood Venous blood specimen / Unknown 02/09/2025 9:47 AM EDT 02/09/2025 11:13 AM EDT us Emiliana Salgado MD LAB BLOOD ORDERABLES Final Result Performing Organization Address [facility] Co de Phone Number [facility] [address] [place] [phone] * Albumin, Random Urine W/Creatinine (07/29/2024 9:39 AM EDT) Creatinine, Urine 179.93 mg/dL [facility] Microalbumin Urine 35.0 mg/L [facility] Microalbum Creatinine Ratio Ur 19.4 <30 ug/mg cr [facility] Comment:Albumin/Creatinine R atio Reference Ranges: Normal: < 30 ug/mg creatinine Microalbuminuria: 30 - 300 ug/mg creatinineClinical Albuminuria: > 300 ug/mg creatinine Urine (Urine, Random) 07/29/2024 9:39 AM EDT 07/29/2024 11:02 AM EDT us Emiliana Salgado MD LAB URINE ORDERABLES Final Result Performing Organization Address [facility] Co de Phone Number [facility] [address] [place] [phone] * (ABNORMAL) Lipid Panel, Standard (07/29/2024 9:39 AM EDT) Triglycerides 137 <150 mg/dL [facility] Comment:Desirable Triglyceri de: less than 150 mg/dLBorderline High Triglyceride 150-199 mg/dLHigh Triglyceride: 200-499 mg/dLVery High Triglyceride: greater than or equal to 5OO mg/dL Cholesterol 103 <200 mg/dL [facility] Comment:Desirable Cholestero l: less than 200 mg/dLBorderline High Cholesterol: 200-239 mg/dLHigh Cholesterol: greater than 239 mg/dL LDL Cholesterol Calculated 38 <100 mg/dL [facility] Comment:Desirable LDL: less than 100 mg/dLNear Optimal/Above Optimal LDL: 110- 129 mg/dLBorderline High LDL: 130-159 mg/dLHigh LDL: 160-189 mg/dLVery High LDL: greater than or equal to 190 mg/dL HDL Cholesterol 38(L) >40 mg/dL [facility] Comment:Desirable HDL: great er than 40 mg/dL Note: This HDL assay may give artificially low results in patients with liver disease. Blood Venous blood specimen / Unknown 07/29/2024 9:39 AM EDT 07/29/2024 11:17 AM EDT Emiliana Salgado MD LAB BLOOD ORDERABLES Final Result [facility] [address] [place] [phone] * Cologuard?? colon cancer screening (11/25/2023 1:01 AM EST) Cologuard Result Negative Negative 12/09/19 5:28 PM EST [facility] (CLIA #:[id number]) Comment: NEGATIVE TEST RESULT. A negative Cologuard [...] (Sharona Grimes al, N Engl J Med 2014;370(14):3431-2082) The normal value (reference range) for this assay is negative. COLOGUARD RE-SCREENING RECOMMENDATION: Periodic colorectal cancer screening is an important part of preventive healthcare for asymptomatic individuals at average risk for colorectal cancer. Following a negative Cologuard result, the [place] Cancer Society and U.S. Multi-Society Task Force screening guidelines recommend a Cologuard re-screening interval of 3 years. References: [place] [employer] Guideline for Colorectal Cancer Screening: https://www.cancer.org/cancer/nmqpd-ifsiuj-aqitbk/zwtchbtse-zwljwobvk-mkdcori/ac s-rec ommendations.html.; Richar DK, Gely CR, Isaiah ChaseK, Colorectal Cancer Screening: Recommendations for Physicians and Patients from the U.S. Multi-Society Task Force on Colorectal Cancer Screening , Am J Gastroenterology 2017; 112:5306-1133. TEST DESCRIPTION: Composite algorithmic analysis of stool [...] (Sharona Grimes al, N Engl J Med 2014;370(14):1777-2796.) Cologuard may produce a false negative or false positive result (no colorectal cancer or precancerous polyp present at colonoscopy follow up). A negative Cologuard test result does not guarantee the absence of CRC or advanced adenoma (pre-cancer). The current Cologuard screening interval is every 3 years. ([place] [employer] and U.S. Multi-Society Task Force). Cologuard performance data in a 10,000 patient pivotal study using colonoscopy as the reference method can be accessed at the following location: www.[employer]woven/results. Additional description of the Cologuard test process, warnings and precautions can be found at www.[employer]woven. Stool specimen (specimen) 11/25/2023 1:01 AM EST 11/27/2023 1:25 PM EST us Emiliana Salgado MD LAB MOLECULAR DIAGNOS TICS ORDERABLES Final Result [facility] (CLIA #:[id number]) [place] [address], [place] [phone] from Last 3 Months or Most Recently Relevant to Health Maintenance Insurance [employer] - [facility] Care Teams Painter Decorator Relationship Specialty Start Date End Date Emiliana Slaughter MD [address] [place] [phone] PCP - General Internal Medicine 12/16/22
--- OUTSIDE RECORDS SUMMARY | 2025-06-16 00:32 | XMS_ITS | Encounter Summary ---
Author Organization [employer] Address [address] [facility] 7t [place] [address] Care Team Providers Care Cool Roofing Installer Name Role Phone Emiliana Slaughter MD Primary Care Provide r Reason for Visit * Reason Comments Med Refill Encounter Details Date Type Department Care Team ([facility] st Contact Info) Description 08/26/2023 Refill [facility] [address] [place], [place] [phone] Emiliana Slaughter MD [address] [place], [place] [phone] Alcohol-related disorder (CMS/HCC) Social History Tobacco Use [...] t he electric, gas, oil or water [employer] threatened to shut off services in your [...] disorders documented in this encounter Care Teams Cool Roofing Installer Relationship Specialty Start Date End Date Emiliana Slaughter MD [address] [place] [phone] PCP - General Internal Medicine 12/16/22 documented as of this encounter
--- OUTSIDE RECORDS SUMMARY | 2025-06-16 00:33 | XMS_ITS | Encounter Summary ---
Author Organization [employer] Address [address] [facility] [address]t [place] [address] Care Team Providers Care Import Specialist Name Role Phone Emiliana Slaughter MD Primary Care Provide r Reason for Visit * Reason Comments Med Refill Encounter Details Date Type Department Care Team ([facility] st Contact Info) Description 11/21/2024 Refill [facility] [address] [place], [place] [phone] Emiliana Slaughter MD [address] [place], [place] [phone] Social History Tobacco Use Types Packs/Day Years [...] documented as of this encounter Care Teams Import Specialist Relationship Specialty Start Date End Date Emiliana Slaughter MD [address] [place] [phone] PCP - General Internal Medicine 12/16/22 documented as of this encounter
--- OUTSIDE RECORDS SUMMARY | 2025-06-16 00:33 | XMS_ITS | Encounter Summary ---
Author Organization [employer] Address [address] [facility] [address]t [place] [address] Care Team Providers Care Crossing Watchman Name Role Phone Smiley Pena MD Primary Care Provider Elsa Leroy Primary Care Provider Emiliana Carter MD Primary Care Provide r Encounter Details Date Type Department Care Team (Latest Contact Info) Description 11/24/2018 Abstract [facility] CONVERSIONS Dental, Provider, DDS Social History Tobacco [...] on filedocumented in this encounter Care Teams Crossing Watchman Relationship Specialty Start Date End Date Smiley Pena MD PCP - General Family Medicine 09/01/19 11/13/22 Elsa Kelley FNP PCP - General Family Medicine 11/14/22 12/15/22 Emiliana Slaughter MD [address] [place] [phone] PCP - General Internal Medicine 12/16/22 documented as of this encounter
[2025-06-16 00:42] LABS: MANUAL DIFF FLAG NO
[2025-06-16 00:43] LABS: Hematocrit 35.8 % (42.0-52.0); Hemoglobin 12.4 g/dl (14.0-18.0); Imm Gran Abs Auto 0.04 X10*3/uL (0.00-0.03); Imm Gran Pct Auto 0.4 % (0.0-0.4); Lymphocytes Absolute Auto 2.0 X10*3/uL (1.2-4.9); Mean Corpuscular HGB Conc 34.6 g/dl (31.0-36.0); Mean Corpuscular Hemoglobin 33.8 pg (27.0-33.0); Mean Corpuscular Volume 97.5 fL (80.0-98.0); NRBC Abs Auto 0.000 X10*3/uL (0.0-0.012); NRBC Pct Auto 0.0 /100WBC (0.0-0.2); Platelet Count 173 X10*3/uL (160-400); Red Blood Count 3.67 X10*6/uL (4.60-5.80); White Blood Count 9.0 X10*3/uL (4.8-10.8)
[2025-06-16 01:02] LABS: Alanine Aminotransferase 10 U/L (0-40); Albumin Level 4.3 g/dL (3.5-5.0); Alkaline Phosphatase 65 U/L (39-117); Anion Gap 12 (12-20); Aspartate Amino Transferase 18 U/L (5-37); Blood Urea Nitrogen 17 mg/dL (9-16); Calcium 9.2 mg/dL (8.4-10.2); Carbon Dioxide 24 mmol/L (22-29); Chloride 107 mmol/L (96-108); Creatinine Clr Calc Pharmacy 92.0; Estimated Glomerular Filt Rate > 60; Potassium 4.0 mmol/L (3.3-5.1); Sodium 139 mmol/L (135-145); Total Protein 6.7 g/dL (6.5-8.0)
--- NOTE | 2025-06-16 02:29 | ED.ABDPAIN ---
HPI - Abdominal Pain General Chief Complaint: Abdominal Pain Stated Complaint: abd pain Time Seen by Provider: 06/16/25 02:20 Source: patient Mode of arrival: ambulatory Limitations: no limitations History of Present Illness ED Provider: Corey SOSA HPI narrative: The patient is a 59-year-old male with history of diabetes, BPH, and alcoholic pancreatitis presenting to the ED for re-evaluation of epigastric abdominal pain after drinking whiskey and beer this weekend. The patient reports he feels he may have overdone it on his alcohol consumption which has previously triggered his pancreatitis. Patient reports last episode of pancreatitis was approximately 1-2 years ago, was treated in the ED and discharged home without admission. The patient reports initial onset of pancreatitis occurred 10 years ago at which time he required a 2 to three-week admission due to ongoing symptoms. Today the patient reports he has been experiencing epigastric abdominal pain with nonbloody diarrhea and minimal nausea, without associated vomiting, fever/chills, chest pain, shortness of breath, or inability to tolerate p.o. solids and fluids. The patient was seen in this ED yesterday for similar symptoms, was treated with GI cocktail and discharged with treatment for gastritis. Patient reports symptoms recurred and were unrelieved by omeprazole, prompting return to the ED for re-evaluation. Related Data Home Medications ?Medication ?Instructions ?Recorded ?Confirmed acamprosate 333 mg tablet,delayed 666 mg PO TID 10/17/22 01/19/25 release atorvastatin 40 mg tablet 40 mg PO DAILY 10/17/22 01/19/25 cholecalciferol (vitamin D3) 25 25 mcg PO QAM 10/17/22 01/19/25 mcg (1,000 unit) tablet metformin 1,000 mg tablet 1,000 mg PO BID 10/17/22 01/19/25 multivitamin 1 tab PO QAM 12/23/22 01/19/25 lisinopril 2.5 mg tablet 2.5 mg PO DAILY 12/28/23 01/19/25 pioglitazone 15 mg tablet 15 mg PO DAILY 12/28/23 01/19/25 Previous Rx's ?Medication ?Instructions ?Recorded omeprazole 40 mg capsule,delayed 40 mg PO DAILY #14 caps 10/25/23 release ondansetron 4 mg disintegrating 4 mg PO Q8H PRN nausea and 05/01/24 tablet vomiting #20 tabs sucralfate 100 mg/mL oral 10 ml PO BID 10 days #200 mL 05/01/24 suspension (Carafate) clotrimazole-betamethasone 1 1 appl topical BID #45 grams 06/16/24 %-0.05 % topical cream sucralfate 1 gram tablet 1 g PO TID #90 tabs 10/23/24 silodosin 4 mg capsule (Rapaflo) 4 mg PO DAILY #90 caps 04/13/25 omeprazole 40 mg capsule,delayed 40 mg PO DAILY #14 caps 06/15/25 release acetaminophen 500 mg capsule 1,000 mg (2 x 500 mg) PO .q8 PRN 06/16/25 fever or pain #30 caps famotidine 20 mg tablet (Pepcid) 20 mg PO BID #28 tabs 06/16/25 ibuprofen 600 mg tablet 600 mg PO Q8H PRN fever or pain 06/16/25 #30 tabs ondansetron 4 mg disintegrating 4 mg PO Q8H PRN nausea and 06/16/25 tablet vomiting #15 tabs Allergies Allergy/AdvReac Type Severity Reaction Status Date / Time No Known Allergies (No Known Allergy Verified 06/16/25 00:25 Allergies*) Review of Systems Review of Systems Yes all other systems are reviewed and are negative PMFSH Past Medical History Medical History Infected cyst of skin Type 2 diabetes mellitus Hypertension Pancreatitis High cholesterol Diabetes Social History Social History Patient Tobacco Use Status: Current everyday Tobacco user Advance Directives: No Advance Directives Information Provided: Yes Physical Exam ED Vital Signs: Vital Signs - 24 hr 06/16/25 00:21 06/16/25 04:00 Temperature 97.7 F 98.0 F Pulse Rate 75 75 Respiratory Rate 18 16 Blood Pressure 149/71 H 140/79 H Pulse Oximetry 98 96 Oxygen Delivery Method Room Air Room Air BMI result Body Mass Index 26.6 CONSTITUTIONAL: The patient appears non-toxic, well nourished and in no acute distress. Vital signs as documented. HEAD: Atraumatic, normocephalic. EYES: EOMs grossly intact, pupils equal, conjunctiva clear, no exudate. ENT: Nares patent, no discharge. Airway patent, no audible stridor, visible mucosa is pink and moist without noted lesions. NECK: Trachea is midline, no obvious masses or gross abnormalities. CHEST: Symmetric movement, normal appearance. LUNGS: LS present and CTAB, no w/r/r. Non-labored work of breathing. CARDIAC: Regular Rhythm, S1/S2 appreciated, no murmurs, rubs or gallops. ABDOMEN: Abdomen soft x4 quadrants, mild tenderness to palpation of the epigastrium, negative rebound, no palpable masses or organomegaly. : Deferred. EXTREMITIES: Normal tone, moves all extremities spontaneously without reported pain. No obvious acute injury or deformity noted. NEURO: Alert and oriented x3, CN II-XII appear grossly intact. Cerebellar Functioning grossly intact. No obvious sensory or motor deficits. Speech clear and appropriate. PSYCH: normal affect, appropriate eye contact, fluid speech, with appropriate response to questioning. No reported suicidality or homicidality. SKIN: Warm, dry, color appropriate, normal turgor. No rashes noted. Medical Decision Making Medical Decision Making MDM Narrative: 3:56 AM 06/16/2025 (Mio SOSA): The patient is a 59-year-old male presenting to the ED for evaluation of ongoing epigastric abdominal pain consistent with his previous episodes of pancreatitis after drinking alcohol this weekend. Patient was seen in the ED yesterday and treated for gastritis, had improvement in symptoms while in the ED and was discharged home, however returns reporting increased to symptoms not relieved by omeprazole. The patient reports he is able to tolerate p.o. solids and fluids, denies any associated fever/chills. The patient in the ED is markedly well-appearing, mild epigastric abdominal tenderness, without rebound. No other acute exam findings. Laboratory evaluation was reassuring with no leukocytosis, significant anemia, electrolyte abnormality, or DELILAH. Patient's LFTs are all unremarkable including lipase of 19. Tonight the patient was treated with GI cocktail, Toradol, and Zofran as well as IV fluid hydration. Upon re-evaluation the patient reports symptoms have significantly improved following interventions, patient was sleeping comfortably upon re-evaluation. The patient is IV fluid hydration is still continuing, we will continue to monitor. If continued improvement in symptoms patient will be discharged with anti-inflammatories, antiemetics, and Pepcid in addition to his previously prescribed omeprazole. 4:56 AM 06/16/2025 (Mio SOSA): Patient reports continued improvement in symptoms following completion of IV fluid hydration, at this time patient is requesting discharge home, we will discharge with Pepcid, ibuprofen, and Zofran. Admission/Observation Consideration of admission/observation: Escalation of care including admission/observation considered Lab Data MDM Lab Attestation statement: I reviewed the patient's lab results. 06/16/25 Unknown 06/16/25 Unknown Labs: Lab Results 06/16/25 Range/Units Unknown WBC 9.0 (4.8-10.8) X10*3/uL RBC 3.67 L (4.60-5.80) X10*6/uL Hgb 12.4 L (14.0-18.0) g/dl Hct 35.8 L (42.0-52.0) % MCV 97.5 (80.0-98.0) fL MCH 33.8 H (27.0-33.0) pg MCHC 34.6 (31.0-36.0) g/dl RDW 12.1 (11.0-16.0) % Plt Count 173 (160-400) X10*3/uL MPV 10.0 (9.4-12.4) fL Immature Gran % (Auto) 0.4 (0.0-0.4) % Neut % (Auto) 67.9 (45-73) % Lymph % (Auto) 22.3 (20-40) % [place] % (Auto) 8.5 (2-11) % Eos % (Auto) 0.7 (0-4) % Baso % (Auto) 0.2 (0-2) % Lymph # (Auto) 2.0 (1.2-4.9) X10*3/uL [place] # (Auto) 0.8 (0.1-1.2) X10*3/uL Eos # (Auto) 0.1 (0.0-0.4) X10*3/uL Baso # (Auto) 0.0 (0.0-0.2) X10*3/uL Abs Immat Gran (auto) 0.04 H (0.00-0.03) X10*3/uL Absolute Neuts (auto) 6.1 (2.0-8.3) x10*3/uL Absolute Nucleated RBC 0.000 (0.0-0.012) X10*3/uL Nucleated RBC % (auto) 0.0 (0.0-0.2) /100WBC Sodium 139 (135-145) mmol/L Potassium 4.0 (3.3-5.1) mmol/L Chloride 107 (96-108) mmol/L Carbon Dioxide 24 (22-29) mmol/L Anion Gap 12 (12-20) BUN 17 H (9-16) mg/dL Creatinine 0.77 (0.5-1.4) mg/dL Estim Creat Clear Calc 92.0 Estimated GFR > 60 Random Glucose 163 H (60-115) mg/dL Calcium 9.2 (8.4-10.2) mg/dL Total Bilirubin 0.6 (0.0-1.0) mg/dL AST 18 (5-37) U/L ALT 10 (0-40) U/L Alkaline Phosphatase 65 (39-117) U/L Total Protein 6.7 (6.5-8.0) g/dL Albumin 4.3 (3.5-5.0) g/dL Lipase 19 (8-78) U/L External Record Review External record reviewed: Outpatient record Prescription Management I considered prescription management with: Pain Medication and Antibiotic Chronic Conditions Patient?s care impacted by: Diabetes Medications Administered Discontinued Medications Generic Name Dose Route Start Last Admin Trade Name Freq PRN Reason Stop Dose Admin Al Hydroxide/Mg Hydroxide 30 ml 06/16/25 02:21 06/16/25 03:01 Magnesium Hydrox/Alum Hydrox 30 Ml Oral.Susp PO 06/16/25 02:22 30 ml ONCE ONE Administration Famotidine 20 mg 06/16/25 02:21 06/16/25 03:02 Famotidine 20 Mg Tablet PO 06/16/25 02:22 20 mg ONCE ONE Administration Sodium Chloride 1,000 mls @ 999 mls/hr 06/16/25 02:30 06/16/25 03:02 Ns IV 06/16/25 03:30 999 mls/hr .Q1H1M KATE Administration Ketorolac Tromethamine 15 mg 06/16/25 02:21 06/16/25 03:01 Ketorolac Tromethamine 15 Mg/Ml Vial IVPUSH 06/16/25 02:22 15 mg ONCE ONE Administration Lidocaine HCl 15 ml 06/16/25 02:21 06/16/25 03:02 Lidocaine Hcl Viscous 2 % 15 Ml Solution PO 06/16/25 02:22 15 ml ONCE ONE Administration Discharge Plan Discharge Clinical Impression: Alcoholic gastritis Qualifiers: Chronicity: acute Gastritis bleeding: without bleeding Qualified Code(s): K29.20 - Alcoholic gastritis without bleeding Patient Disposition: Home, Self-Care Instructions: Gastritis (ED) Additional Instructions: Thank you for choosing [facility] Emergency Department for your care today. Thankfully your laboratory evaluation, vital signs, and exam today are all reassuring At this time there is no indication for admission to the hospital or continued ED observation, and it is safe to discharge you home. Your symptoms appear consistent with alcohol-induced gastritis, which is inflammation of your stomach. Your symptoms improved following antacids, anti-nausea medication, and anti-inflammatories. You may take alternating (staggered) doses of ibuprofen 600mg and Tylenol 1000mg every 4 hours as needed for any additional pain. Please take Zofran as needed for nausea. Please take Pepcid twice daily for the next 2 weeks in addition to your previously prescribed omeprazole. Please do not drink any additional alcohol as this will worsen your symptoms. Please stay well hydrated and get plenty of rest. Please follow up with your primary care physician for re-evaluation, additional management of your symptoms, and continued preventative care. If you do not have a primary care physician, please call the [facility] at [phone] to establish a new primary care physician. While waiting to establish your new primary care physician, you can call our [facility] at [phone] for non-emergency needs. Please return to the emergency department if you develop a severe or sudden change in your symptoms, a fever over 100.4 that does not improve with Tylenol or Ibuprofen, recurrent vomiting, or any other new or worsening symptoms or concerns. Prescriptions: New famotidine [Pepcid] 20 mg tablet 20 mg PO BID Qty: 28 0RF acetaminophen 500 mg capsule 1,000 mg PO .q8 PRN (Reason: fever or pain) Qty: 30 0RF ibuprofen 600 mg tablet 600 mg PO Q8H PRN (Reason: fever or pain) Qty: 30 0RF ondansetron 4 mg tablet,disintegrating 4 mg PO Q8H PRN (Reason: nausea and vomiting) Qty: 15 0RF No Action silodosin [Rapaflo] 4 mg capsule 4 mg PO DAILY Qty: 90 1RF Rx Instructions: must administer with a meal/food omeprazole 40 mg capsule,delayed release(DR/EC) 40 mg PO DAILY Qty: 14 0RF omeprazole 40 mg capsule,delayed release(DR/EC) 40 mg PO DAILY Qty: 14 0RF sucralfate [Carafate] 100 mg/mL suspension 10 ml PO BID 10 Days Qty: 200 0RF ondansetron 4 mg tablet,disintegrating 4 mg PO Q8H PRN (Reason: nausea and vomiting) Qty: 20 0RF sucralfate 1 gram tablet 1 g PO TID Qty: 90 0RF multivitamin Tablet 1 tab PO QAM acamprosate 333 mg tablet,delayed release (DR/EC) 666 mg PO TID metformin 1,000 mg tablet 1,000 mg PO BID cholecalciferol (vitamin D3) 25 mcg (1,000 unit) tablet 25 mcg PO QAM atorvastatin 40 mg tablet 40 mg PO DAILY clotrimazole-betamethasone 1-0.05 % cream 1 appl topical BID Qty: 45 0RF Rx Instructions: apply bid for 7 days then prn. lisinopril 2.5 mg tablet 2.5 mg PO DAILY pioglitazone 15 mg tablet 15 mg PO DAILY Referrals: Physician,Unknown J [Primary Care Provider, Medical] Clinical Impression: Alcoholic gastritis Print Language: Albanian
[2025-06-16 02:36] LABS: Lipase 19 U/L (8-78)
[2025-06-16] MEDS: Magnesium Hydrox/Alum Hydrox 30 ML ORAL.SUSP PO (03:01)
[2025-06-16] MEDS: Lidocaine HCl Viscous 2 % 15 ML SOLUTION PO (03:02)
[2025-06-16 04:00] VITALS: BP 140/79; PULSE 75; RESP 16; TEMP 36.7; O2SAT 96
[2025-06-16 05:43] VITALS: BP 145/87; PULSE 88; RESP 16; TEMP 36.8; O2SAT 98
== END 2025-06-16 05:45 | disposition home or self-care (01) ==
PROVIDERS: Emergency Provider Emergency Medicine
DX: K29.20 Alcoholic gastritis without bleeding (principal); R10.13 Epigastric pain; I10 Essential (primary) hypertension; E11.9 Type 2 diabetes mellitus without complications; E78.00 Pure hypercholesterolemia, unspecified; N40.0 Benign prostatic hyperplasia without lower urinary tract symptoms; F10.90 Alcohol use, unspecified, uncomplicated
CPT/HCPCS: 36415; 80053; 83690; 85025; 96361; 96374; 99284; J1885

== ENCOUNTER 2025-09-13 18:14 | Emergency (ER) | payer OTHER, SELFPAY ==
--- NOTE | ~2025-09-13 | CT_ITS ---
CLINICAL HISTORY: Left belly pain, pancreatitis vs divertic.? CT abdomen and pelvis with contrast Comparison: CT/SR - CT ABDOMEN PELVIS WO IV CON - 10/23/24 20:44 EST Findings: LIMITED CHEST: Lung bases are clear. LIVER: No focal liver lesion. BILIARY: No gallbladder wall thickening, radiopaque stone, or ductal dilatation. PANCREAS: No mass or ductal dilatation. Minimal inflammatory stranding around the pancreatic head. No fluid collection. SPLEEN: No splenomegaly. KIDNEYS: No hydronephrosis or radiopaque stone. ADRENALS: No nodule. VASCULAR: No aneurysm. RETROPERITONEUM: No lymphadenopathy or mass. BOWEL/MESENTERY: No evidence of obstruction. No free fluid or air. Normal appendix. Diffuse thickening of the gastric wall. ABDOMINAL WALL: No mass or significant abnormality. URINARY BLADDER: No focal wall thickening. PELVIC NODES: No pelvic lymphadenopathy. PELVIC ORGANS: Normal for age. BONES: No acute fracture. OTHER: Negative. IMPRESSION: Minimal inflammatory stranding around the pancreatic head, correlate with lipase for acute pancreatitis. Diffuse gastric wall thickening, may be due to underdistention, however gastritis would have similar appearance. This document has been electronically signed by: Sho Miranda MD on 09/13/2025 22:17:20
[2025-09-13 18:18] VITALS: BP 141/76; PULSE 104; RESP 16; TEMP 36.1; O2SAT 95; BMI 25.4
--- NOTE | 2025-09-13 18:19 | ED.ABDPAIN ---
HPI - Abdominal Pain General Chief Complaint: Abdominal Pain Stated Complaint: Stomach Pain Time Seen by Provider: 09/13/25 20:11 Source: patient Limitations: no limitations History of Present Illness ED Provider: Kelly Javier PA-C HPI narrative: 59-year-old male with a history of diabetes, BPH, and alcoholic pancreatitis , with a recent emergency department assessment for pancreatitis in the setting of alcohol use, presents with concerns for ongoing pancreatitis. Associated nausea, diarrhea and chills. The patient states he is still drinking alcohol. Denies active vomiting or fever. No recent hospitalization, travel, use of antibiotics or sick contacts with similar symptoms. Related Data Home Medications ?Medication ?Instructions ?Recorded ?Confirmed acamprosate 333 mg tablet,delayed 666 mg PO TID 10/17/22 01/19/25 release atorvastatin 40 mg tablet 40 mg PO DAILY 10/17/22 01/19/25 cholecalciferol (vitamin D3) 25 25 mcg PO QAM 10/17/22 01/19/25 mcg (1,000 unit) tablet metformin 1,000 mg tablet 1,000 mg PO BID 10/17/22 01/19/25 multivitamin 1 tab PO QAM 12/23/22 01/19/25 lisinopril 2.5 mg tablet 2.5 mg PO DAILY 12/28/23 01/19/25 pioglitazone 15 mg tablet 15 mg PO DAILY 12/28/23 01/19/25 Previous Rx's ?Medication ?Instructions ?Recorded omeprazole 40 mg capsule,delayed 40 mg PO DAILY #14 caps 10/25/23 release ondansetron 4 mg disintegrating 4 mg PO Q8H PRN nausea and 05/01/24 tablet vomiting #20 tabs sucralfate 100 mg/mL oral 10 ml PO BID 10 days #200 mL 05/01/24 suspension (Carafate) clotrimazole-betamethasone 1 1 appl topical BID #45 grams 06/16/24 %-0.05 % topical cream sucralfate 1 gram tablet 1 g PO TID #90 tabs 10/23/24 silodosin 4 mg capsule (Rapaflo) 4 mg PO DAILY #90 caps 04/13/25 omeprazole 40 mg capsule,delayed 40 mg PO DAILY #14 caps 06/15/25 release acetaminophen 500 mg capsule 1,000 mg (2 x 500 mg) PO .q8 PRN 06/16/25 fever or pain #30 caps famotidine 20 mg tablet (Pepcid) 20 mg PO BID #28 tabs 06/16/25 ibuprofen 600 mg tablet 600 mg PO Q8H PRN fever or pain 06/16/25 #30 tabs ondansetron 4 mg disintegrating 4 mg PO Q8H PRN nausea and 06/16/25 tablet vomiting #15 tabs ondansetron 4 mg disintegrating 4 mg PO Q8H PRN nausea and 09/13/25 tablet vomiting #10 tabs oxycodone 5 mg tablet 5 mg PO Q8H PRN pain #10 tabs 09/13/25 sucralfate 1 gram tablet (Carafate) 1 g PO TID PRN indigestion #15 tabs 09/13/25 Allergies Allergy/AdvReac Type Severity Reaction Status Date / Time No Known Allergies (No Known Allergy Verified 09/13/25 18:20 Allergies*) Review of Systems Review of Systems Yes all other systems are reviewed and are negative Constitutional: Reports chills, Denies fatigue and Denies fever(s) Cardiovascular: Denies chest pain and Denies dyspnea Respiratory: Denies cough and Denies dyspnea Gastrointestinal: Reports abdominal pain, Reports diarrhea, Reports nausea and Denies vomiting Endocrine: Denies fatigue PMFSH Past Medical History Attestation statement: The following information was validated with the patient. Medical History Infected cyst of skin Type 2 diabetes mellitus Hypertension Pancreatitis High cholesterol Diabetes Social History Social History Patient Tobacco Use Status: Current everyday Tobacco user Physical Exam ED Vital Signs: Vital Signs - 24 hr 09/13/25 18:18 09/13/25 20:26 09/13/25 21:54 Temperature 97 F 97.6 F Pulse Rate 104 H 69 Respiratory Rate 16 21 H 19 Blood Pressure 141/76 H 152/81 H Pulse Oximetry 95 96 Oxygen Delivery Method Room Air Room Air 09/14/25 00:03 09/14/25 00:56 Temperature 97.7 F 97.7 F Pulse Rate 63 63 Respiratory Rate 15 15 Blood Pressure 153/79 H 153/79 H Pulse Oximetry 97 97 Oxygen Delivery Method Room Air Room Air BMI result Body Mass Index 25.4 Const Other: Alert Orientation/consciousness: patient oriented x3 Resp Effort & Inspection: normal respiratory effort Cardio Other: Normal peripheral perfusion GI Other: Abdomen is soft, nondistended, mild to moderate tenderness left mid to lower is most pronounced, with mild involuntary guarding, no focal left upper quadrant pain or guarding Skin Other: Warm dry no rash Neuro General: patient oriented x3, gait normal, no focal motor deficits and CN's II-XI intact bilaterally Psych Other: Cooperative Course Course Course Narrative: This is a Rapid Medical Exam performed in triage by Katina Motta PA-C. Full HPI, ROS and PE to be performed by primary ED provider. 59 yo M w/pmhx pancreatitis, BPH presenting to the ED c/o upper abdominal pain x few days w/diarrhea & nausea. +chills. denies fever, vomiting PE: NAD, nontoxic appearing, ambulating with steady gait Plan: labs, UA Medical Decision Making Medical Decision Making [facility] Narrative: 59-year-old male with a history of diabetes, BPH, and alcoholic pancreatitis , with a recent emergency department assessment for pancreatitis in the setting of alcohol use, presents with concerns for ongoing pancreatitis. Associated nausea, diarrhea and chills. The patient states he is still drinking alcohol. Denies active vomiting or fever. No recent hospitalization, travel, use of antibiotics or sick contacts with similar symptoms. Problem: Ongoing alcohol use, pancreatitis, diabetes History: Per patient I have considered the following differential diagnoses: Pancreatitis, diverticulitis, viral gastroenteritis, C diff, traveler's diarrhea Plan: Patient here with similar symptoms, however his pain distribution is mid to lower left-sided abdomen, obtaining a CT scan, perhaps he has a separate issue. Screening labs in process, his lipase is still slightly elevated, to note he has no risk factors for traveler's diarrhea or C diff. I have independently reviewed the following tests: Labs: No leukocytosis, not anemic, magnesium subtly low at 1.3, remainder of electrolytes unremarkable, lipase 154, ethanol less than 10, .... Gave [address] abdomen and pelvis: IMPRESSION: Minimal inflammatory stranding around the pancreatic head, correlate with lipase for acute pancreatitis. Diffuse gastric wall thickening, may be due to underdistention, however gastritis would have similar appearance. Differential Diagnosis Differential Diagnoses: The differential diagnosis associated with the presentation includes See MDM Admission/Observation Consideration of admission/observation: Escalation of care including admission/observation considered Not applicable Lab Data [facility] Lab Attestation statement: I reviewed the patient's lab results. 09/13/25 18:45 09/13/25 18:45 Labs: Lab Results 09/13/25 09/13/25 Range/Units 18:45 21:10 WBC 7.7 (4.8-10.8) X10*3/uL RBC 3.97 L (4.60-5.80) X10*6/uL Hgb 13.2 L (14.0-18.0) g/dl Hct 38.3 L (42.0-52.0) % MCV 96.5 (80.0-98.0) fL MCH 33.2 H (27.0-33.0) pg MCHC 34.5 (31.0-36.0) g/dl RDW 11.8 (11.0-16.0) % Plt Count 195 (160-400) X10*3/uL MPV 10.4 (9.4-12.4) fL Immature Gran % (Auto) 0.4 (0.0-0.4) % Neut % (Auto) 61.5 (45-73) % Lymph % (Auto) 27.8 (20-40) % Falls % (Auto) 8.9 (2-11) % Eos % (Auto) 0.9 (0-4) % Baso % (Auto) 0.5 (0-2) % Lymph # (Auto) 2.1 (1.2-4.9) X10*3/uL Falls # (Auto) 0.7 (0.1-1.2) X10*3/uL Eos # (Auto) 0.1 (0.0-0.4) X10*3/uL Baso # (Auto) 0.0 (0.0-0.2) X10*3/uL Abs Immat Gran (auto) 0.03 (0.00-0.03) X10*3/uL Absolute Neuts (auto) 4.7 (2.0-8.3) x10*3/uL Absolute Nucleated RBC 0.000 (0.0-0.012) X10*3/uL Nucleated RBC % (auto) 0.0 (0.0-0.2) /100WBC Sodium 135 (135-145) mmol/L Potassium 3.5 (3.3-5.1) mmol/L Chloride 103 (96-108) mmol/L Carbon Dioxide 24 (22-29) mmol/L Anion Gap 12 (12-20) BUN 15 (9-16) mg/dL Creatinine 0.77 (0.5-1.4) mg/dL Estim Creat Clear Calc 102.4 Estimated GFR > 60 Random Glucose 304 H (60-115) mg/dL Calcium 9.6 (8.4-10.2) mg/dL Magnesium 1.3 L* (1.6-2.6) mg/dL Total Bilirubin 0.7 (0.0-1.0) mg/dL Direct Bilirubin 0.3 (0.0-0.5) mg/dL AST 17 (5-37) U/L ALT 13 (0-40) U/L Alkaline Phosphatase 72 (39-117) U/L Total Protein 7.2 (6.5-8.0) g/dL Albumin 4.6 (3.5-5.0) g/dL Lipase 154 H (8-78) U/L Urine Color Yellow Urine Appearance Clear Urine pH 6.0 (5.0-9.0) Ur Specific [place] >= 1.030 H (1.005-1.025) Urine Protein Trace (Neg-Trace) mg/dL Urine Glucose (UA) >=1000 H (Negative) mg/dL Urine Ketones Negative (Negative) mg/dL Urine Blood Negative (Negative) Urine Nitrite Negative (Negative) Ur Leukocyte Esterase Negative (Negative) Urine RBC 0-2 (0-2) /HPF Urine WBC 0-5 (0-5) /HPF Ur Squamous Epith Cells 0-2 (0-2) /HPF Urine Bacteria None Seen (None Seen) Hyaline Casts 0-2 (0-2) /LPF Ethyl Alcohol < 10 mg/dL Radiology Impression Discussion of test interpretation with radiology: I have reviewed the radiologist's reading. Medications Administered Discontinued Medications Generic Name Dose Route Start Last Admin Trade Name Freq PRN Reason Stop Dose Admin Famotidine 20 mg 09/13/25 23:26 09/13/25 23:42 Famotidine/Pf 20 Mg/2 Ml Vial IVPUSH 11/26/25 23:27 20 mg ONCE ONE Administration Lactated Ringer's 1,000 mls @ 999 mls/hr 09/13/25 20:00 09/13/25 22:31 Lr IV 09/13/25 21:00 Infused .Q1H1M KATE Infusion Magnesium Sulfate 2 gm in 50 mls @ 150 mls/hr 09/13/25 20:21 09/13/25 20:47 Magnesium Sulfate/H2o IV 09/13/25 20:40 Infused ONCE ONE Infusion Sodium Chloride 1,000 mls @ 999 mls/hr 09/13/25 20:30 09/14/25 00:13 Ns IV 09/13/25 21:30 Infused .Q1H1M KATE Infusion Iohexol 85 ml 09/13/25 21:40 09/13/25 21:41 Iohexol 350 Mg/Ml 100 Ml Infus..Btl IV 09/13/25 21:41 85 ml ONCE ONE Administration Morphine Sulfate 4 mg 09/13/25 19:50 09/13/25 20:26 Morphine Sulfate 4 Mg/Ml Cartridge IVPUSH 09/13/25 19:51 4 mg ONCE ONE Administration Protocol Ondansetron HCl 4 mg 09/13/25 19:49 09/13/25 20:27 Ondansetron Hcl 4 Mg/2 Ml Vial IVPUSH 09/13/25 19:50 4 mg ONCE ONE Administration Ondansetron HCl 4 mg 09/13/25 20:19 09/14/25 00:03 Ondansetron Hcl 4 Mg/2 Ml Vial IVPUSH 09/13/25 20:20 Not Given ONCE ONE Sucralfate 1 gm 09/13/25 23:26 09/13/25 23:42 Sucralfate Oral Suspension 1 Gm/10 Ml Oral.Susp PO 09/13/25 23:27 1 gm ONCE ONE Administration Discharge Plan Discharge Clinical Impression: Pancreatitis Qualifiers: Chronicity: acute Pancreatitis type: alcohol induced Acute pancreatitis complication: no infection or necrosis Qualified Code(s): K85.20 - Alcohol induced acute pancreatitis without necrosis or infection Alcoholic gastritis Qualifiers: Chronicity: acute Gastritis bleeding: without bleeding Qualified Code(s): K29.20 - Alcoholic gastritis without bleeding Patient Disposition: Home, Self-Care Instructions: Gastritis (ED), Pancreatitis (ED), Diet for Stomach Ulcers and Gastritis (ED) Additional Instructions: You were found to have mild pancreatitis on the CT scan, your pancreatic enzymes was minimally elevated. You were also found to have gastritis. You do believe your alcohol use is causing your pancreatitis and your gastritis. See home care instructions. Take the oxycodone as needed for pain. Use the Zofran as needed for nausea, use the Carafate as needed for the gastritis. Follow up with your primary care provider as needed. Prescriptions: New sucralfate [Carafate] 1 gram tablet 1 g PO TID PRN (Reason: indigestion) Qty: 15 0RF ondansetron 4 mg tablet,disintegrating 4 mg PO Q8H PRN (Reason: nausea and vomiting) Qty: 10 0RF oxycodone 5 mg tablet 5 mg PO Q8H PRN (Reason: pain) Qty: 10 0RF Rx Instructions: Partial Fill upon patient request. No Action silodosin [Rapaflo] 4 mg capsule 4 mg PO DAILY Qty: 90 1RF Rx Instructions: must administer with a meal/food omeprazole 40 mg capsule,delayed release(DR/EC) 40 mg PO DAILY Qty: 14 0RF omeprazole 40 mg capsule,delayed release(DR/EC) 40 mg PO DAILY Qty: 14 0RF sucralfate [Carafate] 100 mg/mL suspension 10 ml PO BID 10 Days Qty: 200 0RF ondansetron 4 mg tablet,disintegrating 4 mg PO Q8H PRN (Reason: nausea and vomiting) Qty: 20 0RF sucralfate 1 gram tablet 1 g PO TID Qty: 90 0RF famotidine [Pepcid] 20 mg tablet 20 mg PO BID Qty: 28 0RF acetaminophen 500 mg capsule 1,000 mg PO .q8 PRN (Reason: fever or pain) Qty: 30 0RF ibuprofen 600 mg tablet 600 mg PO Q8H PRN (Reason: fever or pain) Qty: 30 0RF ondansetron 4 mg tablet,disintegrating 4 mg PO Q8H PRN (Reason: nausea and vomiting) Qty: 15 0RF multivitamin Tablet 1 tab PO QAM acamprosate 333 mg tablet,delayed release (DR/EC) 666 mg PO TID metformin 1,000 mg tablet 1,000 mg PO BID cholecalciferol (vitamin D3) 25 mcg (1,000 unit) tablet 25 mcg PO QAM atorvastatin 40 mg tablet 40 mg PO DAILY clotrimazole-betamethasone 1-0.05 % cream 1 appl topical BID Qty: 45 0RF Rx Instructions: apply bid for 7 days then prn. lisinopril 2.5 mg tablet 2.5 mg PO DAILY pioglitazone 15 mg tablet 15 mg PO DAILY Interventions: ED Discharge Assessment Last Done: 09/14/25 00:56 Discharge Date/Time: 09/14/25 00:57 Print Language: Bulgarian
[2025-09-13 18:48] LABS: MANUAL DIFF FLAG NO
--- NOTE | 2025-09-13 18:52 | PC.NURSE ---
Patient presented to the ED with 7/10 abdominal pain in LUQ. States pain is very similar to previous pancreatitis flare ups. Patient states this is due to his alcohol consumption on 09/10. 20 g placed in left AC. Labs drawn. VSS.
[2025-09-13 19:06] LABS: Alanine Aminotransferase 13 U/L (0-40); Albumin Level 4.6 g/dL (3.5-5.0); Alkaline Phosphatase 72 U/L (39-117); Anion Gap 12 (12-20); Aspartate Amino Transferase 17 U/L (5-37); Blood Urea Nitrogen 15 mg/dL (9-16); Calcium 9.6 mg/dL (8.4-10.2); Carbon Dioxide 24 mmol/L (22-29); Chloride 103 mmol/L (96-108); Creatinine Clr Calc Pharmacy 102.4; Estimated Glomerular Filt Rate > 60; Lipase 154 U/L (8-78); Magnesium 1.3 mg/dL (1.6-2.6); Potassium 3.5 mmol/L (3.3-5.1); Sodium 135 mmol/L (135-145); Total Protein 7.2 g/dL (6.5-8.0)
--- NOTE | 2025-09-13 19:49 | ECG_ITS ---
Test Reason : PAIN Blood Pressure : */* mmHG Vent. Rate : 71 BPM Atrial Rate : 71 BPM P-R Int : 168 ms QRS Dur : 76 ms QT Int : 376 ms P-R-T Axes : 36 32 1 degrees QTcB Int : 408 ms Normal sinus rhythm Normal ECG When compared with ECG of 24-Oct-2024 19:18, Nonspecific T wave abnormality now evident in Lateral leads Referred By: Cely Gillespie Electronically Signed By: Moe Parada
[2025-09-13 19:51] LABS: Hematocrit 38.3 % (42.0-52.0); Hemoglobin 13.2 g/dl (14.0-18.0); Imm Gran Abs Auto 0.03 X10*3/uL (0.00-0.03); Imm Gran Pct Auto 0.4 % (0.0-0.4); Lymphocytes Absolute Auto 2.1 X10*3/uL (1.2-4.9); Mean Corpuscular HGB Conc 34.5 g/dl (31.0-36.0); Mean Corpuscular Hemoglobin 33.2 pg (27.0-33.0); Mean Corpuscular Volume 96.5 fL (80.0-98.0); NRBC Abs Auto 0.000 X10*3/uL (0.0-0.012); NRBC Pct Auto 0.0 /100WBC (0.0-0.2); Platelet Count 195 X10*3/uL (160-400); Red Blood Count 3.97 X10*6/uL (4.60-5.80); White Blood Count 7.7 X10*3/uL (4.8-10.8)
[2025-09-13 20:26] VITALS: RESP 21
[2025-09-13] MEDS: Magnesium Sulfate/H2O 2 GM/50 ML PIGGYBACK IV (20:27)
[2025-09-13] MEDS: Lactated Ringers 1,000 ML 999 ML IV (20:28)
--- NOTE | 2025-09-13 21:02 | PC.NURSE ---
pt currently has LR infusing. Upon completion, NS will start.
[2025-09-13 21:21] LABS: Appearance Urine Clear; Glucose Urine UA >=1000 mg/dL (Negative); PH 6.0 (5.0-9.0); Specific Gravity - Urine >= 1.030 (1.005-1.025); UMIC TRIGGER UACC YES
[2025-09-13] MEDS: iohexoL 350 MG/ML 100 ML INFUS..BTL 85 ML IV (21:41)
[2025-09-13 21:54] VITALS: BP 152/81; PULSE 69; RESP 19; TEMP 36.4; O2SAT 96
[2025-09-13] MEDS: Sucralfate Oral Suspension 1 GM/10 ML ORAL.SUSP PO (23:42)
[2025-09-14 00:03] VITALS: BP 153/79; PULSE 63; RESP 15; TEMP 36.5; O2SAT 97
[2025-09-14 00:56] VITALS: BP 153/79; PULSE 63; RESP 15; TEMP 36.5; O2SAT 97
== END 2025-09-14 00:57 | disposition home or self-care (01) ==
PROVIDERS: Physician Assistant; Physician Assistant Medical; Emergency Provider Student in an Organized Health Care Education/Training Program
DX: K85.20 Alcohol induced acute pancreatitis without necrosis or infection (principal); K29.20 Alcoholic gastritis without bleeding; F10.90 Alcohol use, unspecified, uncomplicated; Y90.0 Blood alcohol level of less than 20 mg/100 ml; E11.9 Type 2 diabetes mellitus without complications; I10 Essential (primary) hypertension
CPT/HCPCS: 36415; 74177; 80048; 80076; 80307; 81001; 83690; 83735; 85025; 93005; 96361; 96365; 96375; 99284; 99285; J1308; J2270; J2405; J3475; J7120; Q9967

== ENCOUNTER → 2025-09-13 19:49 | Outpatient (BNV) | payer OTHER, SELFPAY | PROVIDERS: Emergency Provider Student in an Organized Health Care Education/Training Program; Visit Provider Internal Medicine Cardiovascular Disease | DX: R07.9 Chest pain, unspecified (principal) | CPT/HCPCS: 93010 ==

== ENCOUNTER → 2025-09-13 20:22 | Outpatient (BNV) | payer OTHER, SELFPAY | PROVIDERS: Emergency Provider Student in an Organized Health Care Education/Training Program; Visit Provider Student in an Organized Health Care Education/Training Program | DX: K31.89 Other diseases of stomach and duodenum (principal) | CPT/HCPCS: 74177 ==